=== PATIENT | male | born 1945 | race Caucasian/White ===

== ENCOUNTER → 2022-07-14 13:51 | Outpatient (BNVA) | payer MEDICARE, SELFPAY | PROVIDERS: Visit Provider Internal Medicine | DX: I25.10 Atherosclerotic heart disease of native coronary artery without angina pectoris (principal); I11.0 Hypertensive heart disease with heart failure; I50.9 Heart failure, unspecified; E78.5 Hyperlipidemia, unspecified | CPT/HCPCS: 99204 ==

== ENCOUNTER 2022-07-19 17:40 | Inpatient (IN) | payer MEDICARE, SELFPAY ==
[2022-07-19] VITALS (11 sets, daily range): BP systolic 134–161; BP diastolic 71–112; PULSE 55–70; RESP 15–30; TEMP 36.8; O2SAT 89–100; BMI 24.1
--- NOTE | 2022-07-19 17:56 | ECG_ITS ---
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 Measurements Intervals [place] Rate: 67 P: 40 ID: 139 QRS: 17 QRSD: 107 T: 55 QT: 371 QTc: 392 Interpretive Statements SINUS RHYTHM WITH OCCASIONAL SUPRAVENTRICULAR PREMATURE COMPLEXES MODERATE ST DEPRESSION [0.05+ mV ST DEPRESSION] No previous ECG available for comparison Electronically Signed On 07-20-2022 0:17:30 CDT by King Farmer M.D. [id number] f
--- NOTE | 2022-07-19 18:00 | XRR_ITS ---
PROCEDURE INFORMATION: Exam: XR Chest Exam date and time: 07/19/2022 6:16 PM Age: 76 years old Clinical indication: Angina; Additional info: Cp TECHNIQUE: Imaging protocol: Radiologic exam of the chest. Views: 1 view. COMPARISON: No relevant prior studies available. FINDINGS: Lungs: Emphysematous lung changes. Fine reticular interstitial changes of the pulmonary parenchyma. Negative for pulmonary consolidation. Pleural spaces: Unremarkable. No pleural effusion. No pneumothorax. Heart/Mediastinum: Unremarkable. No cardiomegaly. Bones/joints: Unremarkable. XR/XR chest 1V portable [id number] IMPRESSION: No focal acute pulmonary disease.
--- NOTE | 2022-07-19 18:05 | PC.NURSE ---
Patient placed on defibrillator pads, code cart outside of room. Pt is a/o x 4
--- NOTE | 2022-07-19 18:21 | ED_ITS ---
HPI - Arrhythmia/Palpitations General: Chief Complaint: Arrhythmia/Palpitations Stated Complaint: Chest pains Time Seen by Provider: 07/19/22 18:00 Source: patient Mode of arrival: ambulatory Limitations: no limitations History of Present Illness: 76-year-old male who has an event monitor placed on by cardiology he had some nonsustained runs of V. tach was called by cardiology informed,. States he did have a syncopal episode yesterday had some right-sided chest pain denies any pain currently. He denies any worsening improving factors has had some mild dyspnea at times. Associated symptoms: Reports syncope; Deny nausea or vomiting Review of Systems Const: Denies: fever(s), chills, body aches or change in appetite Eyes: Denies: blurry vision or eye discomfort ENMT: Denies: throat pain or dental pain Card: Reports: syncope Resp: Denies: dyspnea GI: Denies: abdominal pain, nausea, vomiting or diarrhea : Denies: dysuria Musc: Denies: neck pain or back pain Skin/Breast: Denies: rash Neuro: Denies: headache(s) Psych: Denies: depression Navneet/Lymph: Denies: easy bruising All/Imm: Denies: urticaria PFSH ED PFSH: Medical History CHF (congestive heart failure) CKD (chronic kidney disease) Coronary artery disease HTN (hypertension) Hyperlipidemia Malignant neoplasm of prostate Prostate cancer Surgical History History of knee replacement Hx of cholecystectomy Hx of shoulder replacement Social History Smoking and tobacco status: never smoked Physical Exam Const: COMMON NORMALS: patient oriented x3 HENMT: COMMON NORMALS: normocephalic and atraumatic HEAD & SCALP: normocephalic and atraumatic Eye: COMMON NORMALS: Equal, round and reactive pupils present and EOMs intact bilaterally PUPIL: Yes Equal, round and reactive pupils present Neck/C-Spine: COMMON NORMALS: full ROM and supple Chest: COMMONS NORMALS: normal inspection of the chest and normal palpation of entire chest wall Resp: COMMON NORMALS: normal respiratory effort, No retractions, No use of accessory muscles and clear to auscultation bilaterally AUSCULTATION: clear to auscultation bilaterally Cardio: COMMON NORMALS: regular rate, regular rhythm and No murmurs present (Cardio) RATE: regular rate RHYTHM: regular rhythm GI: COMMON NORMALS: Normal to inspection, nondistended, normoactive bowel sounds present, Soft to palpation, non-tender and no masses PALPATION: Yes Soft to palpation Extremity: COMMON NORMALS: normal to inspection and full ROM Neuro: COMMON NORMALS: patient oriented x3, moves all extremities and no focal motor deficits Psych: COMMON NORMALS: mental status grossly normal, Normal thought process present and cooperative THOUGHT PROCESS: Normal thought process present Skin: COMMON NORMALS: no rashes or lesions noted and no wounds GENERAL SKIN EXAM: no rashes or lesions noted Course Vital Signs: Vital signs: Vital Signs Temperature 98.2 F 07/19/22 18:01 Pulse Rate 62 07/19/22 18:39 Respiratory Rate 18 07/19/22 18:39 Blood Pressure 161/95 07/19/22 18:39 Pulse Oximetry 96 07/19/22 18:39 Oxygen Delivery Me thod 07/19/22 18:39 MDM - Arrhythmia/Palpitations Medical Decision Making Patient presents here with nonsustained runs of V. tach at home on Holter monit or with 1 episode of syncope he is well-appearing here blood work is normal spoke to the [employer] consultant will admit at this time nightly have a cardiac cath tomorrow. Lab Data : 07/19/22 18:10 07/19/22 18:10 Radiology Impressions Chest X-Ray 07/19/22 18:00 IMPRESSION: No focal acute pulmonary disease. Laboratory Results WBC 7.7 10^3/uL (4.0-10.0) 07/19/22 18:10 RBC 4.60 10^6/uL (4.1-5.3) 07/19/22 18:10 Hgb 14.3 g/dL (11.7-16.6) 07/19/22 18:10 Hct 41.9 % (42.0-52.0) L 07/19/22 18:10 MCV 91.1 fl (80-94) 07/19/22 18:10 MCH 31.1 pg (28.0-34.0) 07/19/22 18:10 MCHC 34.1 g/dL (30.0-36.0) 07/19/22 18:10 RDW 13.8 % (12.1-15.1) 07/19/22 18:10 Plt Count 171 10^3/cmm (130-400) 07/19/22 18:10 MPV 10.9 fL (7.4-10.4) H 07/19/22 18:10 Neut % (Auto) 64.5 % 07/19/22 18:10 Lymph % (Auto) 21.5 % 07/19/22 18:10 [place] % (Auto) 8.6 % 07/19/22 18:10 Eos % (Auto) 4.4 % 07/19/22 18:10 Baso % (Auto) 0.7 % 07/19/22 18:10 Neut # (Auto) 4.97 10^3/uL (1.8-7.7) 07/19/22 18:10 Lymph # (Auto) 1.7 10^3/uL (0.8-4.8) 07/19/22 18:10 [place] # (Auto) 0.7 10^3/uL (0.2-0.9) 07/19/22 18:10 Eos # (Auto) 0.3 10^3/uL (0.0-0.8) 07/19/22 18:10 Baso # (Auto) 0.1 10^3/uL (0.0-0.1) 07/19/22 18:10 Nucleated RBC % (auto) 0 % 07/19/22 18:10 Nucleated RBCs # 0.0 /100WBC 07/19/22 18:10 Sodium 141 mmol/L (136-145) 07/19/22 18:10 Potassium 3.7 mmol/L (3.5-5.1) 07/19/22 18:10 Chloride 105 mmol/L (98-107) 07/19/22 18:10 Carbon Dioxide 25 mmol/L (22-29) 07/19/22 18:10 Anion Gap 14.7 (5-19) 07/19/22 18:10 BUN 7 mg/dL (8-23) L 07/19/22 18:10 Creatinine 1.1 mg/dL (0.7-1.2) 07/19/22 18:10 GFR Calculation Not Reportable 07/19/22 18:10 Glucose 114 mg/dL (65-115) 07/19/22 18:10 Calculated Osmolality 291 mOsm/kg (285-295) 07/19/22 18:10 Calcium 8.9 mg/dL (8.5-10.5) 07/19/22 18:10 Total Bilirubin 1.1 mg/dL (0.15-1.2) 07/19/22 18:10 AST 17 U/L (0-40) 07/19/22 18:10 ALT 12 U/L (0-41) 07/19/22 18:10 Alkaline Phosphatase 85 U/L (40-130) 07/19/22 18:10 Troponin T Baseline 14 ng/L (0-15) 07/19/22 18:10 Total Protein 6.4 g/dL (6.6-8.7) L 07/19/22 18:10 Albumin 4.0 g/dL (3.5-5.2) 07/19/22 18:10 Globulin 2.4 g/dL (1.3-4.6) 07/19/22 18:10 EKG Data EKG 1: I personally reviewed and interpreted this EKG as follows: EKG interpretation date: 07/19/22 EKG interpretation time: 17:56 Interpretation: nsr hr [address] or t wave abnormalities qrs 107 qtc 386 Other EKG comments: Chest X-Ray 07/19/22 18:00 IMPRESSION: No focal acute pulmonary disease. Critical Care Time Critical Care Time: Critical Care Time: Yes Total Critical Care Time: 35 Attestation: The high probability of a clinically significant, sudden or life threatening deterioration of the patient's cv system(s) required my full and direct attention, intervention and personal management. The critical care time is as shown. This time is in addition to time spent performing any reported procedures but includes the following: [x] Data and vital sign review and interpretation [x] Patient assessment, examination and intervention [x] Documentation [x] Medication orders and management Discharge Plan Discharge Patient Disposition: Admitted As Inpatient Clinical Impression: Ventricular tachycardia, Syncope Condition: Stable Prescriptions: No Action atorvastatin 20 mg tablet 20 mg PO DAILY tramadol 50 mg tablet 50 mg PO BID PRN lisinopril 10 mg tablet 10 mg PO DAILY Coding Level of Care Code ED Seating Upholsterer for Chg Fwd Exam Comprehensive
[2022-07-19 18:28] LABS: Basophils # 0.1 10^3/uL (0.0-0.1); Basophils % 0.7 %; Eosinophils # 0.3 10^3/uL (0.0-0.8); Eosinophils % 4.4 %; Hematocrit 41.9 % (42.0-52.0); Hemoglobin 14.3 g/dL (11.7-16.6); Lymphocytes # 1.7 10^3/uL (0.8-4.8); Lymphocytes % 21.5 %; Mean Corpuscular HGB Conc 34.1 g/dL (30.0-36.0); Mean Corpuscular Hemoglobin 31.1 pg (28.0-34.0); Mean Corpuscular Volume 91.1 fl (80-94); Mean Platelet Volume 10.9 fL (7.4-10.4); Monocytes # 0.7 10^3/uL (0.2-0.9); Monocytes % 8.6 %; Neutrophils # 4.97 10^3/uL (1.8-7.7); Neutrophils % 64.5 %; Nucleated Red Blood Cells % 0 %; Platelet Count 171 10^3/cmm (130-400); Red Cell Distribution Width 13.8 % (12.1-15.1); White Blood Count 7.7 10^3/uL (4.0-10.0)
[2022-07-19 18:56] LABS: Troponin(5th) Baseline 14 ng/L (0-15)
[2022-07-19 18:57] LABS: Alanine Aminotransferase 12 U/L (0-41); Alkaline Phosphatase 85 U/L (40-130); Anion Gap 14.7 (5-19); Aspartate Amino Transferase 17 U/L (0-40); Blood Urea Nitrogen 7 mg/dL (8-23); Calcium 8.9 mg/dL (8.5-10.5); Carbon Dioxide 25 mmol/L (22-29); Chloride 105 mmol/L (98-107); Globulin 2.4 g/dL (1.3-4.6); Glucose 114 mg/dL (65-115); Osmolality Calculated 291 mOsm/kg (285-295); Potassium 3.7 mmol/L (3.5-5.1); Sodium 141 mmol/L (136-145); Total Bilirubin 1.1 mg/dL (0.15-1.2); Total Protein 6.4 g/dL (6.6-8.7)
--- NOTE | 2022-07-19 19:05 | PC.NURSE ---
Report given to INESSA Rogers
[2022-07-19] MEDS: oxyCODONE-APAP 5-325 mg Tablet 1 TAB PO (20:06)
--- NOTE | 2022-07-19 20:27 | USCV_ITS ---
Lazaro Moody Age: 76 Gender: M : 1945 Exam Date: 07/19/2022 22:47 Ordering Phys: Vinicius Marshall MD Technologist: BALDEV Exam Location: [facility] [place] Indication: recurrent syncope x 6 weeks. No history of cardiac intervention per patient. BP: 134 / 84 HR: 56 Rhythm: Sinus Technical Quality: Adequate MEASUREMENTS (Male / Female) Normal Values 2D ECHO LV Diastolic Diameter PLAX 4.0 cm 4.2 - 5.9 / 3.9 - 5.3 cm LV Systolic Diameter PLAX 2.9 cm IVS Diastolic Thickness 1.8 cm 0.6 - 1.0 / 0.6 - 0.9 cm IVS Systolic Thickness 2.0 cm LVPW Diastolic Thickness 1.3 cm 0.6 - 1.0 / 0.6 - 0.9 cm LVPW Systolic Thickness 1.7 cm LVOT Diameter 1.9 cm LV Ejection Fraction 2D Teich 54.2 % LV Ejection Fraction MOD 2C 77.9 % LV Ejection Fraction 2C AL 77.3 % LA Diameter 3.6 cm LA Width 4.0 cm LA Height 4.8 cm RA Width 4.2 cm RA Height 5.1 cm Aorta at Sinotubular Diameter 3.5 cm IVC Diameter 1.7 cm M-MODE Aortic Annulus Diameter 3.5 cm LA Ao Ratio MM 1.1 MV E Point Septal Separation 0.2 cm DOPPLER AV Peak Velocity 114.0 cm/s LVOT Peak Velocity 108.0 cm/s AV Area Cont Eq vti 2.9 cm squared AV Area Cont Eq pk 2.7 cm squared MV Peak Velocity 106.0 cm/s MV Area PHT 3.9 cm squared Mitral E to A Ratio 1.1 MV E' Velocity 55.5 cm/s Mitral E to MV E' Ratio 11.5 Mitral E to LV E' Lateral Ratio 11.7 Mitral E to LV E' Septal Ratio 11.2 TR Peak Velocity 232.3 cm/s TR Peak Gradient 21.6 mmHg TV Peak E Velocity 40.0 cm/s Right Atrial Pressure 5.0 mmHg Pulmonary Artery Systolic Pressu 26.6 mmHg PV Peak Velocity 78.0 cm/s RV Acceleration Time 0.1 s RV Ejection Time 0.4 s RV AcT/ET 0.3 FINDINGS Left Ventricle Left ventricle is normal in size. LV systolic function is normal with EF of 55 to 60%. No regional wall motion abnormalities are seen. Diastolic function is normal. Right Ventricle Normal in size and function Right Atrium Normal in size Left Atrium Normal in size Mitral Valve Structurally normal mitral valve. No significant stenosis or regurgitation seen. Aortic Valve Structurally normal aortic valve. No significant aortic stenosis or regurgitation is seen. Tricuspid Valve Trace tricuspid regurgitation. Insufficient TR jet to calculate RVSP. Pulmonic Valve Not well-visualized. Mild pulmonic regurgitation. Pericardium Normal Aorta Normal in size IVC CONCLUSIONS LV systolic function is normal with EF of 55 to 60%. Diastolic function is normal. Trace tricuspid regurgitation. Mild pulmonic regurgitation. No comparison studies are available. King Farmer MD (Electronically Signed) Final Date: 20 July 2022 11:49 S
--- NOTE | 2022-07-19 20:27 | USCV_ITS ---
Lazaro Moody Age: 76 Gender: M : 1945 Exam Date: 07/19/2022 22:22 Ordering Phys: Vinicius Marshall MD Technologist: BALDEV [place] [facility] [place]: No leg pain. No LE edema. No LE erythema. No history of DVT per patient. HISTORY: No leg pain. No LE edema. No LE erythema. No history of DVT per patient. PROCEDURES: Venous duplex imaging was performed in bilateral lower extremities. The venous duplex Doppler examination of both lower extremities was performed in the standard fashion. The following venous structures were evaluated: common femoral vein, profunda vein, proximal portion of the greater saphenous vein, superficial femoral vein, and the popliteal vein. In addition, the posterior tibial veins were evaluated. Serial compression, augmentation maneuvers, and spectral Doppler flow evaluation were performed, which were normal. Bilaterally, the common femoral, superficial femoral, profunda femoral, popliteal, posterior tibial, and greater saphenous veins were identified and interrogated in the standard fashion. These veins were found to be easily compressible with spontaneous blood flow. No evidence of thrombus noted. CONCLUSIONS No evidence of right lower extremity DVT. No evidence of left lower extremity DVT. Adam Powell MD (Electronically Signed) Final Date: 20 July 2022 13:22 S
--- NOTE | 2022-07-19 20:29 | USCV_ITS ---
Lazaro Moody Age: 76 Gender: M : 1945 Exam Date: 07/19/2022 22:00 Ordering Phys: Vinicius Marshall MD Technologist: BALDEV Exam Location: [facility] [place] Indication: recurrent syncope x 6 weeks. Non-smoker. DM2. Risk Factors: recurrent syncope x 6 weeks. Non-smoker. DM2. Previous Vascular Surgery: None Right Brachial BP: / Left Brachial BP: / Right Left Velocity (cm/s) Spectral Plaque Velocity (cm/s) Spectral Plaque Syst/Diast Broadening Syst/Diast Broadening 91.50/ 12.10 None None Prox CCA 118.00/ 18.70 None None 93.70/ 17.60 None None Mid CCA 70.60 / 17.60 None None 71.70/ 17.60 None None Distal CCA 76.10 / 19.80 None None 57.10/ 20.30 Min [place] Prox ICA 56.70 / 17.10 Min [place] 50.70/ 19.80 Min None Mid ICA 73.00 / 21.80 Min None 62.00/ 23.50 Min None Distal ICA 73.80 / 29.50 Min None 54.50 Min None ECA 72.80 Min None 0.66 ICA/CCA 0.63 Antegrade Vertebral Antegrade 41.10/ 11.20 cm/s 50.50/ 12.40 cm/s Tri Subclavian Tri 101.0 83.10 0 FINDINGS Comparison: none available. No significant elevation of systolic or diastolic velocities. Waveforms are normal. Minimal intimal thickening. CONCLUSIONS Bilateral ICA stenosis less than 50%. Minimal atherosclerosis carotid arteries. Dr. Deann Wilburn DO (Electronically Signed) Final Date: 20 July 2022 07:41 S
--- NOTE | 2022-07-19 20:30 | P.HP_ITS ---
Providers/Chief Complaint Chief Complaint: Chest pains History of Present Illness Lazaro Moody is a 76 year old male with a past medical history of hypertension, hyperlipidemia, CHF, CKD who presents to [facility] for recurrent syncopal episodes, collapse, severe substernal chest pain. Patient for the last few weeks has been having episodes of syncope, and passing out and collapsing, he is also been having severe substernal chest pain. He describes of chest pain pressure-like, associated lightheadedness, dizziness, no nausea, no vomiting, diaphoresis. Denies any calf pain, no calf swelling, no recent surgeries, no hemoptysis, at times he does complain of shortness of breath. He tells me that roughly 30 years ago he did have a coronary angiogram which showed possible 60% disease in one of his arteries but not enough for intervention. 2 years ago he had an angiogram in [facility] which she was told he had normal coronary arteries. He saw cardiology who ordered an event monitor and patient was found to have nonsustained V. tach episodes. This morning patient tells me that he had an episode of syncope and collapse, and had 3 significant episodes of chest pain, his syncope episodes were not witnessed, as his was at work. But he tells me he passed out fell to the floor he has having some neck pain, and has some anterior chest discomfort. Review of Systems Const: Denies: fever(s) or chills Card: Reports: chest pain, lightheadedness and syncope Resp: Reports: dyspnea GI: Denies: abdominal pain : Denies: flank pain or difficulty urinating Musc: Reports: neck pain Neuro: Reports: headache(s); Denies: numbness in extremities, weakness in extremities, lack of coordination, difficulty walking, frequent falls, vertigo, Slurred speech present or seizure- like activity Medications/Allergies Home Medications Medication Instructions Recorded Confirmed Last Taken Type atorvastatin 20 mg tablet 20 mg PO DAILY 07/14/22 07/14/22 Unknown History lisinopril 10 mg tablet 10 mg PO DAILY 07/14/22 07/14/22 Unknown History tramadol 50 mg tablet 50 mg PO BID PRN 07/14/22 07/14/22 Unknown History Allergies Allergy/AdvReac Type Severity Reaction Status Date / Time aspirin Allergy Unknown Unknown Verified 07/14/22 10:45 codeine Allergy Unknown Unknown Verified 07/14/22 10:45 esomeprazole [From Nexium] Allergy Unknown Unknown Verified 07/14/22 10:45 hydrocodone Allergy Unknown Unknown Verified 07/14/22 10:45 hydromorphone Allergy Unknown Unknown Verified 07/14/22 10:45 iodine Allergy Unknown Unknown Verified 07/14/22 10:45 latex Allergy Unknown Unknown Verified 07/14/22 10:45 morphine Allergy Unknown Unknown Verified 07/14/22 10:45 niacin Allergy Unknown Unknown Verified 07/14/22 10:45 zolpidem [From Ambien] Allergy Unknown Unknown Verified 07/14/22 10:45 Allergy Unknown Unknown Uncoded 07/14/22 10:45 PFSH Acute PFSH: Medical History CHF (congestive heart failure) CKD (chronic kidney disease) Coronary artery disease HTN (hypertension) Hyperlipidemia Malignant neoplasm of prostate Prostate cancer Surgical History History of knee replacement Hx of cholecystectomy Hx of shoulder replacement Social History Smoking and tobacco status: never smoked Vitals/I&O/Wt Last Vital Signs Temp 98.2 F 07/19/22 18:01 Pulse 62 07/19/22 18:39 Resp 18 07/19/22 18:39 BP 161/95 07/19/22 18:39 Pulse Ox 96 07/19/22 18:39 O2 Del Method 07/19/22 18:39 Weight last 48 hrs Weight 87.543 kg Physical Exam Const: COMMON NORMALS: no acute distress and patient oriented x3 HENMT: COMMON NORMALS: normocephalic HEAD & SCALP: normocephalic Eye: COMMON NORMALS: Equal, round and reactive pupils present and EOMs intact bilaterally Neck/C-Spine: COMMON NORMALS: no JVD Resp: COMMON NORMALS: normal respiratory effort, No retractions, No use of accessory muscles and clear to auscultation bilaterally AUSCULTATION: clear to auscultation bilaterally Cardio: COMMON NORMALS: no JVD, regular rate, regular rhythm, S1 normal heart sound present and S2 normal heart sound present RATE: regular rate RHYTHM: regular rhythm HEART SOUNDS: S1 normal heart sound present and S2 normal heart sound present GI: COMMON NORMALS: Normal to inspection, nondistended, normoactive bowel sounds present, Soft to palpation, non-tender, No hepatosplenomegaly present, no masses and no bruits PALPATION: Yes Soft to palpation and Yes No hepat osplenomegaly present Extremity: COMMON NORMALS: capillary refill normal, no clubbing, cyanosis or edema, no calf tenderness and no pedal edema Neuro: COMMON NORMALS: patient oriented x3, CN's II-XII intact bilaterally, moves all extremities and no focal motor deficits Psych: COMMON NORMALS: mental status grossly normal Data : 07/19/22 18:10 07/19/22 18:10 A&P Assessment and plan (1) NSVT (nonsustained ventricular tachycardia): Status: Acute (2) Syncope and collapse: Status: Acute (3) Unstable angina: Status: Acute Plan Syncope and collapse -With unstable angina -With syncope and collapse -Baseline troponin 14, EKG shows ST depressions in inferior lateral leads -Currently having mild chest discomfort -Etiology, concerning for cardiac etiology, given troponin is not elevated, concerning for multivessel CAD -The other possibilities could be a pulmonary embolism, -Event monitor showing nonsustained V. tach, longest lasting 20 seconds Plan -Due to patient's episodes of syncope, unstable angina, recurrent nonsustained V. tach episodes, he needs ICU monitoring -Check magnesium level, TSH, serial EKGs, serial troponins, telemetry monitoring -Stat echo -Venous ultrasound, and D-dimer -Therapeutic Lovenox, statin, Coreg -Cardiology consulted, plans on cardiac cath in the morning -Monitor for nonsustained V. tach, pads in place -Fall, neck pain, CT of the neck, carotid artery ultrasound -Full code -Lovenox for DVT prophylaxis Attestations Medical Necessity Statement*: Patient requires hospitalization, inpatient, greater than 2 midnights, for syncope and collapse, nonsustained V. tach, unstable angina Coding Level of Care Code Acute Data Processing Auditor for [facility] Diagnoses NSVT (nonsustained ventricular tachycardia) I47.2 Syncope and collapse R55 Unstable angina I20.0
--- NOTE | 2022-07-19 20:32 | ECG_ITS ---
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 Measurements Intervals [place] Rate: 64 P: 35 TN: 146 QRS: 4 QRSD: 104 T: 35 QT: 414 QTc: 427 Interpretive Statements SINUS RHYTHM WITH OCCASIONAL SUPRAVENTRICULAR PREMATURE COMPLEXES Compared to ECG 07/19/2022 18:50:36 Myocardial infarct finding no longer present Electronically Signed On 07-20-2022 0:18:28 CDT by King Farmer M.D. [id number]
--- NOTE | 2022-07-19 20:33 | CTR_ITS ---
PROCEDURE INFORMATION: Exam: CT Cervical Spine Without Contrast Exam date and time: 07/19/2022 8:48 PM Age: 76 years old Clinical indication: Patient HX: Patient has been having recurrent falls due to arrhythmia. C/O neck pain. ; Additional info: Fall, pain TECHNIQUE: Imaging protocol: Computed tomography of the cervical spine without contrast. Radiation optimization: All CT scans at this facility use at least one of these dose optimization techniques: automated exposure control; mA and/or kV adjustment per patient size (includes targeted exams where dose is matched to clinical indication); or iterative reconstruction. COMPARISON: CR (CHEST, ) 07/19/2022 6:16 PM RADIATION DOSE METRICS: Total DLP (mGy-cm): 168.47 FINDINGS: Bones/joints: No acute fracture. Unremarkable alignment. Mild degenerative anterolisthesis C7-T1. Discs/Spinal canal/Neural foramina: The cervical spine demonstrates moderate degenerative changes at multiple levels. Severe disc height loss of C5-C6. Lungs: Lung apices are normal. Soft tissues: Unremarkable. CT/CT cervical spin wo con* [id number] IMPRESSION: Negative for acute cervical spine abnormality.
[2022-07-19 20:42] LABS: Troponin 5 2HR 13.97 ng/L (0-15)
[2022-07-19 20:51] LABS: Troponin 5 2HR Delta -0.03 ABS# (0-10)
[2022-07-19 21:01] LABS: D Dimer 0.38 ug/mIFEU (0-0.59)
[2022-07-19 21:09] LABS: INR 1.09 (0.8-1.2)
[2022-07-19 21:11] LABS: NT Pro B Type Natriuretic Pept 246 pg/mL (0-450); Procalcitonin 0.04 ng/mL (0-0.5)
[2022-07-19 21:21] LABS: Phosphorus 2.5 mg/dL (2.5-4.5)
[2022-07-20] VITALS (58 sets, daily range): BP systolic 106–165; BP diastolic 54–98; PULSE 44–127; RESP 12–31; TEMP 36–36.7; O2SAT 85–100; BMI 26.4
--- NOTE | 2022-07-20 | ECG_ITS ---
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 Measurements Intervals [place] Rate: 57 P: 61 AR: 144 QRS: 19 QRSD: 103 T: 51 QT: 444 QTc: 434 Interpretive Statements SINUS BRADYCARDIA WITH FREQUENT SUPRAVENTRICULAR PREMATURE COMPLEXES Compared to ECG 07/19/2022 20:32:49 Sinus rhythm no longer present Electronically Signed On 07-20-2022 0:17:57 CDT by King Farmer M.D. [id number]
[2022-07-20] MEDS: pantoprazole 40 mg SDV IVP (02:01)
[2022-07-20] MEDS: sodium chloride 0.9% 1,000 ML 50 ML IV ×2 (02:02→20:49)
[2022-07-20] MEDS: enoxaparin 100 mg/mL Syringe 90 MG SUBCUT (02:04)
[2022-07-20 02:58] LABS: Troponin 5 6HR 21.07 ng/L (0-15)
[2022-07-20 03:09] LABS: Basophils # 0.1 10^3/uL (0.0-0.1); Basophils % 0.9 %; Eosinophils # 0.4 10^3/uL (0.0-0.8); Hematocrit 36.2 % (42.0-52.0); Hemoglobin 12.5 g/dL (11.7-16.6); Lymphocytes # 1.7 10^3/uL (0.8-4.8); Lymphocytes % 30.2 %; Mean Corpuscular HGB Conc 34.5 g/dL (30.0-36.0); Mean Corpuscular Hemoglobin 31.3 pg (28.0-34.0); Mean Corpuscular Volume 90.5 fl (80-94); Mean Platelet Volume 11.3 fL (7.4-10.4); Monocytes # 0.6 10^3/uL (0.2-0.9); Monocytes % 10.5 %; Neutrophils # 2.92 10^3/uL (1.8-7.7); Neutrophils % 51.1 %; Nucleated Red Blood Cells % 0 %; Platelet Count 150 10^3/cmm (130-400); Red Cell Distribution Width 13.5 % (12.1-15.1); White Blood Count 5.7 10^3/uL (4.0-10.0)
[2022-07-20 03:17] LABS: INR 1.13 (0.8-1.2)
[2022-07-20 03:23] LABS: Alanine Aminotransferase 10 U/L (0-41); Albumin Level 3.4 g/dL (3.5-5.2); Alkaline Phosphatase 71 U/L (40-130); Anion Gap 10.5 (5-19); Aspartate Amino Transferase 14 U/L (0-40); Blood Urea Nitrogen 8 mg/dL (8-23); Calcium 8.1 mg/dL (8.5-10.5); Carbon Dioxide 29 mmol/L (22-29); Chloride 104 mmol/L (98-107); Globulin 1.9 g/dL (1.3-4.6); Glucose 83 mg/dL (65-115); Magnesium 1.9 mg/dL (1.7-2.3); Osmolality Calculated 287 mOsm/kg (285-295); Phosphorus 2.9 mg/dL (2.5-4.5); Potassium 3.5 mmol/L (3.5-5.1); Sodium 140 mmol/L (136-145); Total Protein 5.3 g/dL (6.6-8.7)
[2022-07-20 03:35] LABS: Troponin 5 6HR Delta 7.07 ng/L (0-12)
--- NOTE | 2022-07-20 06:15 | PC.NURSE ---
spoke to linda abdullahi she will bring advance directive today (07/20/2022)
[2022-07-20 06:22] LABS: Add Urine Microscopic? NO; Charge for UA Resulting for Rev
[2022-07-20 07:05] LABS: Bilirubin Urine Neg (Negative); Blood Urine Neg (Negative); Glucose Urine UA Norm (Normal); Ketones Urine Negative (Negative); Leukocyte Esterase Urine Negative (Negative); Nitrate Urine Negative (Negative); Protein Urine Neg (Negative); Urine Appearance Clear (CLEAR); Urine Color Yellow (Yellow); Urobilinogen Urine Norm (Negative); pH Urine 6 (5-7)
--- NOTE | 2022-07-20 08:04 | XACV_ITS ---
Exam Room: [facility] Ht: 185 cm Wt: 91 kg BSA: 2.17 m2 Gender: Male : 1945 Any Known Allergies: Other Exam Priority: Routine Procedure(s): Procedure Description: Diagnostic procedure Procedure Description: Left Heart Catheterization Procedure Description: Coronary Angiography Diagnostic Cath Status: Urgent Diagnostic Findings * No significant disease noted in the Left Main, Left Anterior Descending, Right, or Circumflex coronary arteries. * INDICATION: Ventricular tachycardia/ Syncope. * Coronary angiography shows right dominance. Conclusions 1. No significant disease noted in the Left Main, Left Anterior Descending, Right, or Circumflex coronary arteries. Recommendations * Aggressive risk factor modification. * We will start amiodarone gtt. * Patient will need transfer to tertiary center for EP evaluation for EP study and ablation. He also may need ICD placement for secondary prevention. Diagnostic RX Recommendation: medical therapy and/or counseling Pressures Phase:Rest AO : 124 / 83 ( 104 ) @ 9:32:00 AM 126 / 78 ( 106 ) @ 9:34:00 AM 144 / 53 ( 104 ) @ 9:37:00 AM LV : 153 / -11 / 10 @ 9:37:00 AM Clinical Evaluation EBL: 5mL-10mL Procedural Details Procedure Consent Obtained. Pre-Procedure Time Out. Identified patient by full name and date of as verbalized by the patient/guarantor. Does the consent match the physician's order: Yes. Accurate & Complete Informed Consent: Yes. Inpatient/Outpatient History & Physical on Chart: Yes. If H&P is completed, is and addenduem needed: No; If yes, is the addendum complete: N/A. Visualize and Verify Site with Patient/Guarantor: N/A. Relevant Radiology Images available: Yes. Pre-op teaching completed and patient verbalized understanding. The risks, benefits, and alternatives of sedation and/or procedure were discussed by physician. The patient agrees to continue. Procedure started. 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 Chest Pain Symptom Assessment: Asymptomatic. Correct patient, site and procedure confirmed by cath team. PERRLA. Strong, equal hand battery starter bilaterally. Lungs clear x 5 lobes. IV Site on Arrival: 18 gauge in the left anticubital. IV Fluids: 0.9% NaCl at KVO. 200 mL infused prior to senior laboratory technician. Oxygen started at 2liters/min via nasal canula. Pre Procedural Pulses: right radial was 2+. right groin was prepped with chloroprep then draped in the usual sterile fashion. right radial was prepped with chloroprep then draped in the usual sterile fashion. Baseline sample Acquired. HR: 61 BPM. Physician arrived. Physician scrubbed in. Immediate Pre-Procedure Time Out. Correct Patient: Yes; Correct Procedure: Yes; Correct Site: Yes; Correct Patient Position: Yes; Correct Supplies: Yes; Dried Flammable Prep: Yes; Blood Products Available: N/A;. Lidocaine 1% infiltrated to the right radial. Arterial access obtained. A 5 british Brandt catheter in over wire. Multiple views taken of left coronary artery. Catheter redirected to the RCA. Multiple views taken of right coronary artery. EDP Sample taken: LV Off; HR: 0 BPM; SpO2: 96%. EDP Sample taken: LV 153/-12,10; HR: 65 BPM; SpO2: 96%. Pullback taken: LV Off; AO Off; Mean: , Peak to Peak: , SEP: ; HR: 67 BPM; SpO2: 96%. Catheter removed over the standard wire. TR band placed. Hemostasis obtained. Post Procedure: Pulses reassessed and unchanged. PERRLA. Strong, equal hand battery starter bilaterally. No VTE prophylaxis required. Post-op diagnosis: Non Obstructive CAD. Complications: None. Medication's Wasted: Lidocaine 1% = 2 mL. Medication's Wasted: Nitro = 49.8 mg. Medication's Wasted: Heparin = 1000 units. Estimated blood loss: 5mL-10mL. Responsiveness - Normal response to verbal stimuli; alert and oriented, PERRLA. Vital chart was stopped. Airway - Unaffected, no intervention required; spontaneous ventilation. Circulation: W/N/L, pulses unchanged. Nausea/Vomiting: No. Procedure completed. Patient transferred by wheelchair to ICU. Access Site Site: Right Radial artery Sheath Size: 6 Fr Hemostasis Success: Unsuccessful Procedure Medications Start: 8:22 AM Stop: 8:22 AM Medication: Versed Amount: 1 mg Route: I.V. Start: 8:23 AM Stop: 8:23 AM Medication: Fentanyl Amount: 50 mcg Route: I.V. Start: 8:23 AM Stop: 8:23 AM Medication: Solu-Medrol (methylprednisolone) Amount: 125 mg Route: I.V. Start: 8:26 AM Stop: 8:26 AM Medication: Nitrogylcerin Amount: 200 mcg Route: I.A. Start: 8:30 AM Stop: 8:30 AM Medication: Heparin Amount: 5000 units Route: I.V. Start: 8:22 AM Stop: 8:22 AM Medication: Benadryl Amount: 50 mg Route: I.V. I, the attending physician, have reviewed and verified all procedure medications. Yes, all medications given per verbal order History/Risk Factors Hypertension: Yes Dyslipidemia: Yes Peripheral Arterial Disease (PAD): No Myocardial Infarction (WA): No Obesity: No Renal Disease: No Prior Interventions PCI: No CABG: No Valve Surgery: No Report Signatures Finalized by King Farmer MD on 07/28/2022 12:27 PM
--- NOTE | 2022-07-20 08:07 | P.CONIM_ITS ---
Providers/Reason For Consult Consulting Physician/Specialty*: King Farmer MD/ Cardiology Reason for Consult*: Ventricular tachycardia/Syncope Requesting Physician: Dr Morrison Attending Physician: Vinicius Marshall MD History of Present Illness History of Present Illness Lazaro Moody is a 76 year old male with past medical history of hypertension, hyperlipidemia who was recently seen in the office for syncopal episode. He was put on event monitor that showed sustained VT episodes. Patient was asked to come to the hospital on however he came yesterday because of transportation issues. Patient tells me he has had 2-3 syncopal episodes since last week. He was also complaining of chest discomfort on and off. His troponins have not increased significantly. EKG shows normal sinus rhythm with PACs. Event monitor also showed episodes of SVT. Review of Systems Narrative: CONSTITUTIONAL: No fever chills weight loss or gain or night sweats. [] HEENT: Normocephalic, atraumatic.[] RESPIRATORY: No cough, sputum, hemoptysis or wheezing.[] CARDIOVASCULAR: No shortness of breath, chest pain, PND, orthopnea, lower extremity edema, presyncope or syncope. [] GI: no nausea vomiting diarrhea. [] WEBSPHERE ARCHITECT: No numbness, tingling, weakness or loss of function in any part of the b benito. [] MUSCULOSKELETAL: No knee or joint pain or rashes. [] Medications/Allergies Home Medications Medication Instructions Recorded Confirmed Last Taken Type atorvastatin 20 mg tablet 20 mg PO DAILY 07/14/22 07/14/22 Unknown History lisinopril 10 mg tablet 10 mg PO DAILY 07/14/22 07/14/22 Unknown History tramadol 50 mg tablet 50 mg PO BID PRN 07/14/22 07/14/22 Unknown History Allergies Allergy/AdvReac Type Severity Reaction Status Date / Time aspirin Allergy Unknown Unknown Verified 07/14/22 10:45 codeine Allergy Unknown Unknown Verified 07/14/22 10:45 esomeprazole [From Nexium] Allergy Unknown Unknown Verified 07/14/22 10:45 hydrocodone Allergy Unknown Unknown Verified 07/14/22 10:45 hydromorphone Allergy Unknown Unknown Verified 07/14/22 10:45 iodine Allergy Unknown Unknown Verified 07/14/22 10:45 latex Allergy Unknown Unknown Verified 07/14/22 10:45 morphine Allergy Unknown Unknown Verified 07/14/22 10:45 niacin Allergy Unknown Unknown Verified 07/14/22 10:45 zolpidem [From Ambien] Allergy Unknown Unknown Verified 07/14/22 10:45 [id number] Allergy Unknown Unknown Uncoded 07/14/22 10:45 Current Medications Generic Name Dose Route Start Last Admin Trade Name Freq PRN Reason Stop Dose Admin Sodium Chloride 1,000 mls @ 50 mls/hr 07/20/22 01:04 07/20/22 02:02 Sodium Chloride 0.9% IV 50 mls/hr .Q20H ANDREW Administration Pantoprazole Sodium 40 mg 07/20/22 01:04 07/20/22 02:01 Pantoprazole 40 Mg Sdv IVP 40 mg Q24H ANDREW Administration PFSH Acute PFSH: Medical History CHF (congestive heart failure) CKD (chronic kidney disease) Coronary artery disease HTN (hypertension) Hyperlipidemia Malignant neoplasm of prostate Prostate cancer Surgical History History of knee replacement Hx of cholecystectomy Hx of shoulder replacement Social History Smoking and tobacco status: never smoked Vitals/I&O/Wt Last Vital Signs Temp 96.8 F L 07/20/22 01:00 Pulse 52 L 07/20/22 05:12 Resp 17 07/20/22 04:15 BP 134/70 07/20/22 04:15 Pulse Ox 99 07/20/22 04:15 O2 Del Method 07/20/22 02:15 O2 Flow Rate 2 07/20/22 01:00 07/19/22 07/20/22 07/20/22 22:59 06:59 14:59 Output Total 370 / 370 Balance -370 / -370 Weight last 48 hrs Weight 200 lb 6.4 oz Weight 193 lb Physical Exam Narrative: GENERAL: Patient is alert, awake and oriented x3. [] NECK: No jugular vein distension. [] HEENT: No cyanosis. No icterus. No pallor. [] HEART: Regular S1 and S2. No murmur, rub or gallop. [] LUNGS: Clear to auscultate bilaterally. [] ABDOMEN: Soft, nontender and nondistended. Positive bowel sounds. No guarding, rebound or tenderness. [] CENTRAL NERVOUS SYSTEM: Grossly nonfocal. [] EXTREMITIES: Lower extremities with no edema bilaterally. Pulses palpable in the lower extremities, both dorsalis pedis and posterior tibial. [] Data : 07/20/22 02:00 07/20/22 02:00 A&P Assessment and plan (1) Syncope and collapse: Status: Acute (2) Unstable angina: Status: Acute (3) Ventricular tachycardia: Status: Acute Plan Patient was recently seen in the office and was put on event monitor given his syncopal episodes. It showed ventricular tachycardia up to 42 seconds in duration. He was asked to come to the hospital. He had syncopal episodes during the last week. Also complains of chest pain episodes associated with it. We will proceed with coronary angiogram with possible percutaneous coronary intervention to rule out CAD as a trigger for his VTs. Will need to initiate antiarrhythmic medications. If no CAD is found, will d iscuss with EP for possible EP study. He will likely need ICD as well. Order echocardiogram. Thank you for involving us with care of this patient. We will continue to follow. Please call with questions. Consult Attestations Medical Necessity Statement: Care expected to cross 2 midnights. Coding Level of Care Code Acute Glass Cut Off Supervisor for Christine Montgomery Diagnoses Syncope and collapse R55 Unstable angina I20.0 Ventricular tachycardia I47.2
--- NOTE | 2022-07-20 08:19 | W.PM.OPSUD ---
Surgery/Procedure H&P Update DATE OF PROCEDURE: July 20, 2022 DATE H&P PERFORMED: 07/20/22 H&P UPDATE INFORMATION: I have reviewed H&P completed within last 30 days, I have examined patient prior to procedure and No changes to prior documentation PREOP DIAGNOSIS: Ventricular tachycardia/ Syncope PRIMARY INDICATION FOR PROCEDURE: Ventricular tachycardia/ Syncope PATIENT REASSESSED PRIOR TO SEDATION, WITH NO CHANGE NOTED: Yes PHYSICAL EXAM: alert, oriented x 3, clear to auscultation bilaterally and regular rate & rhythm AIRWAY EVAL/ANESTHESIA PLAN: ASA III, Local Anesthesia, Risks, benefits & alternatives of sedation and/or procedure discussed and Patient agrees to continue as planned ADDITIONAL INFORMATION: Moderate sedation
--- NOTE | 2022-07-20 10:35 | PM.PN ---
Subjective Subjective: Overnight labs and H&P reviewed. Patient is status post cardiac cath this morning. Coronaries were clean. No intervention. He is brought back into ICU room 6 and is currently resting comfortably. No complaints of chest pain dyspnea or palpitations at this time. Noted sinus bradycardia on telemetry. Medications: Reviewed: Yes Vitals/I&O/Wt Last Vital Signs Temp 97.7 F 07/20/22 07:30 Pulse 69 07/20/22 08:00 Resp 23 H 07/20/22 08:00 BP 128/66 07/20/22 08:00 Pulse Ox 99 07/20/22 08:00 O2 Del Method 07/20/22 08:00 O2 Flow Rate 2 07/20/22 08:00 07/19/22 07/20/22 07/20/22 22:59 06:59 14:59 Intake Total 0 / 0 Output Total 370 / 370 Balance -370 / -370 0 / 0 Weight last 48 hrs Weight 90.9 kg Weight 87.543 kg Physical Exam Narrative: General: No acute distress, AO x3, resting comfortably at the time of exam HEENT: PERRLA, pupils bilaterally equal and reactive, pallors not present Chest: Normal vesicular breath sounds, no added sounds, equal good air entry bilaterally CVS: S1-S2 regular, no murmurs, no tachycardia, no gallops, no rubs Abdomen: Soft, nontender, no organomegaly, bowel sounds present Neuro: No focal deficits, no facial deformity, AO x3, power 5/5 in all limbs Data : 07/20/22 02:00 07/20/22 02:00 A&P Assessment and plan (1) NSVT (nonsustained ventricular tachycardia): Status: Acute (2) Syncope and collapse: Status: Acute (3) Unstable angina: Status: Acute Plan Syncope and collapse -Event monitor showing nonsustained V. tach, longest lasting 20 seconds Likely etiology to be episodes of sustained V. tach. Patient is status post cardiac cath this morning. Coronaries were clean, no intervention. Discussed case with readers' advisory service librarian Dr. Auguste, patient will need electrophysiology studies given nonischemic etiology. Attempting transfer to a center where EP is available. Negative carotid Doppler Attestations Medical Necessity Statement*: Needs continued admission for episodes of sustained V. tach, possible transfer for EP studies and ablation. Coding Level of Care Code Acute Formation Fracturing Operator for Christine Fwd Diagnoses NSVT (nonsustained ventricular tachycardia) I47.2 Syncope and collapse R55 Unstable angina I20.0
--- NOTE | 2022-07-20 10:43 | PC.PHAR ---
unable to verify meds with pt medications entered are meds the pharmacy has filled recently
--- NOTE | 2022-07-20 12:52 | PC.CHAP ---
Pastoral Care Encounter/Spiritual Assessment Type of Contact [] Declined crawler crane operator visit [] Patient/Family/Request visit [] Outpatient visit [] Follow-up visit [] Physician referral [] Code/Alert [x] Routine visit [] Staff referral [] Actively dying [] Patient sleeping [x] Family support [] [] Out of room [] Palliative care [] [] Receiving care in room [] Pre-surgical visit [] Trauma [] Long length of stay [x] ICU visit [x] Other: being transferred to [place] Relational/Emotional Strength [] Patient feels connected with others/family/visitors/staff [] Distress [] Loneliness/isolation [] Abandonment Spirituality of Patient [] Person of Adia [] Attends Taoist of their Adia [] Believes in Prayer [] Reads Bible or Jewish materials [] There are Spiritual issues to be addressed Glass Calibrator Interventions [x] Prayer [x] Active listening [x] Non-anxious presence [x] Spiritual/emotional support [] Crisis/trauma care [] Spiritual counseling [] Bereavement support [] Provided bereavement packet [] Provided Bible/devotional materials [] Provided toy/stuffed animal, coloring book to patient or family member [] Provided Communion [] Anointing/[place] [] Salvation [x] Completed spiritual assessment [] Other: Impact on Illness or Injury [] Angry [] Fearful [] Anxious [] Often cries [] Exhaustion [] Unable to work [] Unable to attend yarsanism [] Unable to walk/stand [] Unable to read [] Unable to drive [] Unable to eat/drink [] Unable to sleep [] Unable to be with family [] Patient intubated [] Other: Summary Time spent with patient
--- NOTE | 2022-07-20 12:52 | PM.MISC ---
Miscellaneous Note Purpose of Documentation: Brief procedure Note Note: Left heart cath: No significant coronary artery disease seen Will need transfer for EP evaluation/ EP study/ ICD placement for secondary prevention
--- NOTE | 2022-07-20 16:34 | PC.NURSE ---
VTACH 22 second Wide complex monomorphic Vtach on monitor. Patient did come out of it on his own. Patient did complain of headache and feeling of being anxious approximately 10-15 minutes prior to episode. Dr. Hernandez called and notified. She presented to ICU for orders. Patient was in room with sorting through his wallet during episode, never lost consciousness. Defib pads placed on patient.
--- NOTE | 2022-07-20 21:43 | PC.NURSE ---
@2114 pt went into V tach, pt states he was having mild chest pain. V tach ended at 2115, chest pain ended when v tach subsided. @2117 MD cortes was notified and requested we inform cardiology. MD Colby called and informed of event. ordered stat labs and to increase amiodarone from 0.5mg to 1mg
[2022-07-20 22:35] LABS: Anion Gap 16.7 (5-19); Blood Urea Nitrogen 13 mg/dL (8-23); Calcium 8.1 mg/dL (8.5-10.5); Carbon Dioxide 22 mmol/L (22-29); Chloride 103 mmol/L (98-107); Glucose 231 mg/dL (65-115); Magnesium 1.6 mg/dL (1.7-2.3); Osmolality Calculated 293 mOsm/kg (285-295); Phosphorus 2.1 mg/dL (2.5-4.5); Potassium 3.7 mmol/L (3.5-5.1); Sodium 138 mmol/L (136-145)
[2022-07-20] MEDS: magnesium sulfate premix 2 GM/50 ML PIGGYBACK IV (23:46)
[2022-07-20] MEDS: lidocaine 1% 5 ML in potassium chloride premix 100 ML 25 ML IV (23:47)
[2022-07-21] VITALS (37 sets, daily range): BP systolic 101–158; BP diastolic 58–97; PULSE 56–73; RESP 14–31; TEMP 36.5–36.8; O2SAT 80–98
[2022-07-21] MEDS: pantoprazole 40 mg SDV IVP (00:51)
--- NOTE | 2022-07-21 03:06 | PC.NURSE ---
This RN contacted [facility] inquiring about bed status on 07/21/2022 @ 9992. RN informed there are still no beds available for pt at this time.
--- NOTE | 2022-07-21 08:49 | P.PN_ITS ---
Subjective Subjective: Patient is doing well. He had 2 episodes of ventricular tachycardia yesterday. He was put on amiodarone drip. Last episode was at around 9 PM and lasted for about 1 minute. He had presyncopal symptoms with it. Vitals/I&O/Wt Last Vital Signs Temp 98.1 F 07/20/22 20:00 Pulse 62 07/21/22 06:00 Resp 17 07/21/22 04:00 BP 120/63 07/21/22 04:00 Pulse Ox 96 07/21/22 04:00 O2 Del Method 07/20/22 20:00 O2 Flow Rate 2 07/20/22 08:00 07/20/22 07/21/22 07/21/22 22:59 06:59 14:59 Intake Total 1606.716 / 1606.716 155 / 1761.716 Output Total 370 / 370 Balance 1606.716 / 1606.716 -215 / 1391.716 Weight last 48 hrs Weight 200 lb 6.4 oz Weight 193 lb Physical Exam Narrative: GENERAL: Patient is alert, awake and oriented x3. [] NECK: No jugular vein distension. [] HEENT: No cyanosis. No icterus. No pallor. [] HEART: Regular S1 and S2. No murmur, rub or gallop. [] LUNGS: Clear to auscultate bilaterally. [] ABDOMEN: Soft, nontender and nondistended. Positive bowel sounds. No guarding, rebound or tenderness. [] CENTRAL NERVOUS SYSTEM: Grossly nonfocal. [] EXTREMITIES: Lower extremities with no edema bilaterally. Pulses palpable in the lower extremities, both dorsalis pedis and posterior tibial. [] Data : 07/20/22 02:00 07/20/22 21:57 A&P Assessment and plan (1) Syncope and collapse: Status: Acute (2) Unstable angina: Status: Acute (3) Ventricular tachycardia: Status: Acute Plan Patient has been having syncopal episodes and was found to have ventricular tachycardia on Holter monitor. Underwent coronary angiogram yesterday that showed no significant coronary artery disease. Echocardiogram shows normal LV systolic function. Patient has been started on amiodarone. Continue for now. Had 2 episodes of VT yesterday. EF is normal. Patient is in process of transferring's to [facility] for EP study with possible ablation. He may need ICD placement for secondary prevention. Thank you for involving us with care of this patient. We will continue to follow. Please call with questions. Attestations Medical Necessity Statement*: Care expected to cross 2 midnights. Coding Level of Care Code Acute Sanitation Truck Driver for Christine Montgomery Diagnoses Syncope and collapse R55 Unstable angina I20.0 Ventricular tachycardia I47.2
[2022-07-21] MEDS: carvedilol 3.125 mg Tablet PO ×2 (10:29→17:56)
[2022-07-21] MEDS: atorvastatin 40 mg Tablet PO (10:29)
--- NOTE | 2022-07-21 11:38 | PC.NURSE ---
1100 Continuing Amniodarone gtt per dr Peterson orders through transfer to [facility] which is in process and waiting for bed assignment.
[2022-07-21 16:45] LABS: SARS Covid-2 Antigen Negative (Negative)
[2022-07-21] MEDS: sodium chloride 0.9% 1,000 ML 50 ML IV (16:53)
--- NOTE | 2022-07-21 21:10 | PC.NURSE ---
Tramadol Patient complaining of a headache at a 7 on a 1-10 numerical scale. 5 mg PO Oxycodone IR PRN Q6HR for pain ordered. Due to patient's allergy list, inquiry made to patient about reactions to oxycodone in the past. Patient states he developed a rash following the use of oxycodone and that he normally takes 50 mg Tramadol PRN for pain at home. Dr. Marshall contacted and order received to restart home medication. Tramadol administered per JAN.
[2022-07-21] MEDS: TRAMadol 50 mg Tablet PO (21:23)
--- NOTE | 2022-07-21 22:11 | PM.TDS ---
Transfer Summary Providers Date of Admission: 07/20/22 01:04 Date of Discharge/Transfer: 07/21/22 Attending Provider at Admission: Vinicius Marshall MD Attending Provider at Transfer: Skylar Hernandez MD Transfer Plans: Anticipated date of transfer: 07/21/22. Diagnoses at Discharge Discharge Diagnosis (1) Syncope and collapse: Status: Acute (2) Unstable angina: Status: Acute (3) Ventricular tachycardia: Status: Acute Reason for Visit Reason for Visit Chest pains Brief History: 76 M who presented to the hospital with recurrent syncope and collapse with holter monitor tracings as outpatient showing episodes of sustained V tach. Coronary angiogram without obstrcutive CAD. He is currently on amiodarone infusion but continues to have episodes of sustained V tach. He describes chest pain during these episodes. No LOC in the hospital. he is being transferred to [facility] in [place] for electrophysiology studies and possible ablation and defibrillator placement Physical Exam Narrative: General: No acute distress, AO x3 HEENT: PERRLA, pupils bilaterally equal and reactive, pallors not present Chest: Normal vesicular breath sounds, no added sounds, equal good air entry bilaterally CVS: S1-S2 regular, no murmurs, no tachycardia, no gallops, no rubs Abdomen: Soft, nontender, no organomegaly, bowel sounds present Neuro: No focal deficits, no facial deformity, AO x3, power 5/5 in all limbs TS Data Studies Completed and Pending Pending at discharge Category Date Time 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 Routine Exams 07/20/22 08:04 Taken ABG ONLY [Arterial Blood Gas W/O Coox] Stat Lab 07/19/22 20:38 Ordered CDIFF [Clostridioides Difficile PCR] Routine Lab 07/21/22 11:05 Received Labs from last 24 hours 07/21/22 07/20/22 15:55 21:57 Sodium 138 Potassium 3.7 Chloride 103 Carbon Dioxide 22 Anion Gap 16.7 BUN 13 Creatinine 1.2 GFR Calculation Not Reportable Glucose 231 H Calculated Osmolality 293 Calcium 8.1 L Phosphorus 2.1 L Magnesium 1.6 L SARS-CoV-2 Ag (Rapid) Negative Completed Studies During Hospitalization Category Date Time Status CT cervical spin wo con* [id number] Stat Cat Scan 07/19/22 20:33 Completed XR chest 1V portable [id number] Stat Exams 07/19/22 18:00 Completed CV carotid duplex BI* [id number] Stat Ultrasound 07/19/22 20:29 [place] [id number] Stat Ultrasound 07/19/22 20:27 Completed CV. echo complete* [id number] Stat Ultrasound 07/19/22 20:27 Completed Laboratory Last Values WBC 5.7 10^3/uL (4.0-10.0) 07/20/22 02:00 RBC 4.00 10^6/uL (4.1-5.3) L 07/20/22 02:00 Hgb 12.5 g/dL (11.7-16.6) 07/20/22 02:00 Hct 36.2 % (42.0-52.0) L 07/20/22 02:00 MCV 90.5 fl (80-94) 07/20/22 02:00 MCH 31.3 pg (28.0-34.0) 07/20/22 02:00 MCHC 34.5 g/dL (30.0-36.0) 07/20/22 02:00 RDW 13.5 % (12.1-15.1) 07/20/22 02:00 Plt Count 150 10^3/cmm (130-400) 07/20/22 02:00 MPV 11.3 fL (7.4-10.4) H 07/20/22 02:00 Neut % (Auto) 51.1 % 07/20/22 02:00 Lymph % (Auto) 30.2 % 07/20/22 02:00 Hubbard % (Auto) 10.5 % 07/20/22 02:00 Eos % (Auto) 7.0 % 07/20/22 02:00 Baso % (Auto) 0.9 % 07/20/22 02:00 Neut # (Auto) 2.92 10^3/uL (1.8-7.7) 07/20/22 02:00 Lymph # (Auto) 1.7 10^3/uL (0.8-4.8) 07/20/22 02:00 Hubbard # (Auto) 0.6 10^3/uL (0.2-0.9) 07/20/22 02:00 Eos # (Auto) 0.4 10^3/uL (0.0-0.8) 07/20/22 02:00 Baso # (Auto) 0.1 10^3/uL (0.0-0.1) 07/20/22 02:00 Nucleated RBC % (auto) 0 % 07/20/22 02:00 Nucleated RBCs # 0.0 /100WBC 07/20/22 02:00 PT 14.80 SECONDS (12.1-14.9) 07/20/22 02:00 INR 1.13 (0.8-1.2) 07/20/22 02:00 D-Dimer 0.38 ug/mIFEU (0-0.59) 07/19/22 18:10 Sodium 138 mmol/L (136-145) 07/20/22 21:57 Potassium 3.7 mmol/L (3.5-5.1) 07/20/22 21:57 Chloride 103 mmol/L (98-107) 07/20/22 21:57 Carbon Dioxide 22 mmol/L (22-29) 07/20/22 21:57 Anion Gap 16.7 (5-19) 07/20/22 21:57 BUN 13 mg/dL (8-23) 07/20/22 21:57 Creatinine 1.2 mg/dL (0.7-1.2) 07/20/22 21:57 GFR Calculation Not Reportable 07/20/22 21:57 Glucose 231 mg/dL (65-115) H 07/20/22 21:57 Calculated Osmolality 293 mOsm/kg (285-295) 07/20/22 21:57 Lactic Acid 1.0 mmol/L (0.5-2.2) 07/19/22 21:05 Calcium 8.1 mg/dL (8.5-10.5) L 07/20/22 21:57 Phosphorus 2.1 mg/dL (2.5-4.5) L 07/20/22 21:57 Magnesium 1.6 mg/dL (1.7-2.3) L 07/20/22 21:57 Total Bilirubin 1.0 mg/dL (0.15-1.2) 07/20/22 02:00 AST 14 U/L (0-40) 07/20/22 02:00 ALT 10 U/L (0-41) 07/20/22 02:00 Alkaline Phosphatase 71 U/L (40-130) 07/20/22 02:00 Troponin T Baseline 14 ng/L (0-15) 07/19/22 18:10 Troponin T 120 Minute 13.97 ng/L (0-15) 07/19/22 20:07 Delta Troponin T -0.03 ABS# (0-10) L 07/19/22 20:07 Troponin T Hi Sens 6Hr 21.07 ng/L (0-15) H 07/20/22 02:00 Troponin T Hi Sens 6Hr Delta 7.07 ng/L (0-12) 07/20/22 02:00 NT-Pro-B Natriuret Pep 246 pg/mL (0-450) 07/19/22 20:07 Total Protein 5.3 g/dL (6.6-8.7) L 07/20/22 02:00 Albumin 3.4 g/dL (3.5-5.2) L 07/20/22 02:00 Globulin 1.9 g/dL (1.3-4.6) 07/20/22 02:00 Procalcitonin 0.04 ng/mL (0-0.5) 07/19/22 20:07 TSH 1.50 uIU/mL (0.27-4.20) 07/19/22 20:07 Urine Color Yellow (Yellow) 07/20/22 06:00 Urine Appearance Clear (CLEAR) 07/20/22 06:00 Urine pH 6 (5-7) 07/20/22 06:00 Ur Specific [place] 1.020 (1.005-1.030) 07/20/22 06:00 Urine Protein Neg (Negative) 07/20/22 06:00 Urine Glucose (UA) Norm (Normal) 07/20/22 06:00 Urine Ketones Negative (Negative) 07/20/22 06:00 Urine Blood Neg (Negative) 07/20/22 06:00 Urine Nitrate Negative (Negative) 07/20/22 06:00 Urine Bilirubin Neg (Negative) 07/20/22 06:00 Urine Urobilinogen Norm mg/dL (Negative) 07/20/22 06:00 Ur Leukocyte Esterase Negative (Negative) 07/20/22 06:00 SARS-CoV-2 Ag (Rapid) Negative (Negative) 07/21/22 15:55 Radiology Impressions Chest X-Ray 07/19/22 18:00 IMPRESSION: No focal acute pulmonary disease. Cervical Spine CT 07/19/22 20:33 IMPRESSION: Negative for acute cervical spine abnormality. Date of Service: 07/19/22 Procedure(s): CV. echo complete* [id number] Accession Number(s): [id number] Report Number: [id number] ?Lazaro Moody ?Age:? ? 76 ? ? Gender: ? ? M ?:? ? 1945 ?Exam Date: ? ? 07/19/2022 22:47 ?Ordering Phys: ? ? Vinicius Marshall? ?Technologist:? ? ? BL ?Exam Location:? ? ? [facility] ?MRN:? ? [id number] ?Account Number: ? ? ? [id number] ?Indication:? ? ? recurrent syncope x 6 weeks. No history of cardiac ? intervention per patient. ?BP: ? 134 ? ? / ? 84? ? ? HR: ? 56 ?Rhythm: ? Sinus ?Technical Quality:? ? ? Adequate ?MEASUREMENTS? (Male / Female) Normal Values ?2D ECHO ?LV Diastolic Diameter PLAX? 4.0 cm? 4.2 - 5.9 / 3.9 - 5.3 cm ?LV Systolic Diameter PLAX ? 2.9 cm?IVS Diastolic Thickness ? 1.8 cm? 0.6 - 1.0 / 0.6 - 0.9 cm ?IVS Systolic Thickness? 2.0 cm?LVPW Diastolic Thickness? 1.3 cm? 0.6 - 1.0 / 0.6 - 0.9 cm ?LVPW Systolic Thickness ? 1.7 cm?LVOT Diameter ? 1.9 cm?LV Ejection Fraction 2D Teich ? ? 54.2 %?LV Ejection Fraction MOD 2C ? ? ? 77.9 %?LV Ejection Fraction 2C AL? 77.3 %?LA Diameter ? 3.6 cm?LA Width? 4.0 cm?LA Height ? 4.8 cm?RA Width? 4.2 cm?RA Height ? 5.1 cm?Aorta at Sinotubular Diameter ? ? 3.5 cm?IVC Diameter? 1.7 cm?M-MODE ?Aortic Annulus Diameter ? 3.5 cm?LA Ao Ratio MM? 1.1 ?MV E Point Septal Separation? ? ? 0.2 cm?DOPPLER ?AV Peak Velocity? 114.0 cm/s?LVOT Peak Velocity? 108.0 cm/s?AV Area Cont Eq vti ? 2.9 cm squared ?AV Area Cont Eq pk? 2.7 cm squared ?MV Peak Velocity? 106.0 cm/s?MV Area PHT ? 3.9 cm squared ?Mitral E to A Ratio ? 1.1 ?MV E' Velocity? 55.5 cm/s ?Mitral E to MV E' Ratio ? 11.5?Mitral E to LV E' Lateral Ratio ? 11.7?Mitral E to LV E' Septal Ratio? ? 11.2?TR Peak Velocity? 232.3 cm/s?TR Peak Gradient? 21.6 mmHg ?TV Peak E Velocity? 40.0 cm/s ?Right Atrial Pressure ? 5.0 mmHg?Pulmonary Artery Systolic Pressu? 26.6 mmHg ?PV Peak Velocity? 78.0 cm/s ?RV Acceleration Time? 0.1 s ?RV Ejection Time? 0.4 s ?RV AcT/ET ? 0.3 ?FINDINGS ?Left Ventricle ?Left ventricle is normal in size.? LV systolic function is ?normal with EF of 55 to 60%.? No regional wall motion ?abnormalities are seen.? Diastolic function is normal. ?Right Ventricle ?Normal in size and function ?Right Atrium ?Normal in size ?Left Atrium ?Normal in size ?Mitral Valve ?Structurally normal mitral valve.? No significant stenosis or ?regurgitation seen. ?Aortic Valve ?Structurally normal aortic valve.? No significant aortic ?stenosis or regurgitation is seen. ?Tricuspid Valve ?Trace tricuspid regurgitation.? Insufficient TR jet to calculate ?RVSP. ?Pulmonic Valve ?Not well-visualized.? Mild pulmonic regurgitation. ?Pericardium ?Normal ?Aorta ?Normal in size ?IVC ?CONCLUSIONS ?LV systolic function is normal with EF of 55 to 60%. ?Diastolic function is normal. ?Trace tricuspid regurgitation.? Mild pulmonic regurgitation. ?No comparison studies are available. Recent Clincial Data Last Vital Signs Temp 97.8 F 07/21/22 20:00 Pulse 62 07/21/22 21:15 Resp 17 07/21/22 21:15 BP 145/72 07/21/22 21:15 Pulse Ox 83 L 07/21/22 21:15 O2 Del Method 07/21/22 20:00 O2 Flow Rate 2 07/20/22 08:00 Vital Signs Temp Pulse Resp BP Pulse Ox O2 Del Method 07/21/22 21:15 62 17 145/72 83 L 07/21/22 21:00 57 L 21 H 146/94 98 07/21/22 20:45 59 L 24 H 144/86 96 07/21/22 20:30 60 16 142/72 96 07/21/22 20:15 68 19 H 132/72 93 07/21/22 20:00 97.8 F 67 23 H 97 Room Air 07/21/22 19:45 67 31 H 139/78 94 07/21/22 19:30 66 23 H 150/89 07/21/22 19:15 68 30 H 138/90 96 07/21/22 19:00 61 20 H 140/70 97 07/21/22 16:00 97.7 F 62 17 120/63 96 07/21/22 16:00 97.7 F 62 07/21/22 14:00 62 07/21/22 12:00 98.0 F 62 17 120/63 96 07/21/22 12:00 98.0 F 62 17 120/63 Intake & Output/Weight 07/19/22 07/20/22 07/21/22 07/22/22 06:59 06:59 06:59 06:59 Intake Total 1761.716 / 9175.103 6049.451 / 2163.451 Output Total 370 / 370 370 / 370 1225 / 1225 Balance -370 / -370 1391.716 / 1391.716 938.451 / 938.451 Weight 90.9 kg Vitals Last Vital Signs Temp 97.8 F 07/21/22 20:00 Pulse 62 07/21/22 21:15 Resp 17 07/21/22 21:15 BP 145/72 07/21/22 21:15 Pulse Ox 83 L 07/21/22 21:15 O2 Del Method 07/21/22 20:00 O2 Flow Rate 2 07/20/22 08:00 TS Medications Medications Atorvastatin Calcium (Atorvastatin 40 Mg Tablet) 40 mg PO DAILY ANDREW Last Admin: 07/21/22 10:29 Dose: 40 mg Carvedilol (Carvedilol 3.125 Mg Tablet) 3.125 mg PO BID [facility] Last Admin: 07/21/22 17:56 Dose: 3.125 mg Sodium Chloride (Sodium Chloride 0.9%) 1,000 mls @ 50 mls/hr IV .Q20H [facility] Last Admin: 07/21/22 16:53 Dose: 50 mls/hr Amiodarone HCl 900 mg/Dextrose/ IV Miscellaneous Supplies 518 mls @ 34.533 mls/hr IV CONT [facility] Last Admin: 07/21/22 15:00 Dose: 1 mg/min, 34.53 mls/hr Naloxone HCl (Naloxone 0.4 Mg/Ml Sdv) 0.1 mg IVP Q2M PRN PRN Reason: OPIATERV Ondansetron HCl (Ondansetron 2 Mg/Ml Sdv 2 Ml) 4 mg IVP Q8H PRN PRN Reason: vomiting, or N/V if npo Oxycodone HCl (Oxycodone 5 Mg Ir Tab/Cap) 5 mg PO Q6H PRN PRN Reason: SEVERE PAIN Pantoprazole Sodium (Pantoprazole 40 Mg Sdv) 40 mg IVP Q24H [facility] Last Admin: 07/21/22 00:51 Dose: 40 mg Tramadol HCl (Tramadol 50 Mg Tablet) 50 mg PO BID PRN PRN Reason: MODERATE PAIN Last Admin: 07/21/22 21:23 Dose: 50 mg Discontinued Medications Diphenhydramine HCl (Diphenhydramine 50 Mg/Ml Sdv 1ml) Confirm Administered Dose 50 mg .ROUTE .STK-MED ONE Stop: 07/20/22 08:23 Enoxaparin Sodium (Enoxaparin 100 Mg/Ml Syringe) 90 mg SUBCUT ONCE ONE Stop: 07/20/22 01:05 Last Admin: 07/20/22 02:04 Dose: 90 mg Fentanyl (Fentanyl 50 Mcg/Ml Inj 2ml) Confirm Administered Dose 100 mcg .ROUTE .STK-MED ONE Stop: 07/20/22 08:06 Heparin Sodium (Porcine) (Heparin 5,000 Unit/Ml Inj 1 Ml) Confirm Administered Dose 10,000 unit .ROUTE .STK-MED ONE Stop: 07/20/22 08:06 Lidocaine HCl (Lidocaine 1%) Confirm Administered Dose 3 mls @ as directed .ROUTE .STK-MED ONE Stop: 07/20/22 08:06 Amiodarone HCl 150 mg/Dextrose/ IV Miscellaneous Supplies 103 mls @ 412 mls/hr IV ONCE ONE Stop: 07/20/22 16:49 Last Infusion: 07/20/22 18:42 Dose: Infused Magnesium Sulfate (Magnesium Sulfate Premix) 2 gm in 50 mls @ 50 mls/hr IV ONCE ONE Stop: 07/20/22 23:51 Last Infusion: 07/21/22 00:50 Dose: Infused Lidocaine HCl 5 ml/ Potassium (Chloride) 105 mls @ 25 mls/hr IV ONCE ONE Stop: 07/21/22 03:05 Last Infusion: 07/21/22 04:16 Dose: Infused Methylprednisolone Sodium Succinate (Methylprednisolone Sod Succ 125 Mg/2 Ml Inj) Confirm Administered Dose 125 mg .ROUTE .STK-MED ONE Stop: 07/20/22 08:23 Midazolam HCl (Midazolam 1 Mg/Ml Inj 2 Ml) Confirm Administered Dose 2 mg .ROUTE .STK-MED ONE Stop: 07/20/22 08:06 Nitroglycerin (Nitroglycerin 5 Mg/Ml Sdv 10 Ml) Confirm Administered Dose 50 mg .ROUTE .STK-MED ONE Stop: 07/20/22 08:06 Oxycodone/Acetaminophen (Oxycodone-Apap 5-325 Mg Tablet) 1 tab PO ONCE ONE Stop: 07/19/22 19:47 Last Admin: 07/19/22 20:06 Dose: 1 tab Allergies aspirin Allergy (Unknown, Verified 07/14/22 10:45) Unknown codeine Allergy (Unknown, Verified 07/14/22 10:45) Unknown esomeprazole [From Nexium] Allergy (Unknown, Verified 07/14/22 10:45) Unknown hydrocodone Allergy (Unknown, Verified 07/14/22 10:45) Unknown hydromorphone Allergy (Unknown, Verified 07/14/22 10:45) Unknown iodine Allergy (Unknown, Verified 07/14/22 10:45) Unknown latex Allergy (Unknown, Verified 07/14/22 10:45) Unknown morphine Allergy (Unknown, Verified 07/14/22 10:45) Unknown niacin Allergy (Unknown, Verified 07/14/22 10:45) Unknown zolpidem [From Ambien] Allergy (Unknown, Verified 07/14/22 10:45) Unknown oxycodone Allergy (Verified 07/21/22 21:08) ALGY-Rash [id number] Allergy (Unknown, Uncoded 07/14/22 10:45) Unknown Home Medications atorvastatin 20 mg tablet 20 mg PO DAILY 07/14/22 [History Confirmed 07/20/22] lisinopril 10 mg tablet 10 mg PO DAILY 07/14/22 [History Confirmed 07/20/22] tramadol 50 mg tablet 50 mg PO BID PRN Pain 07/14/22 [History Confirmed 07/20/22] Discharge Plan Discharge Patient Disposition: Xfer Other Condition: Stable Prescriptions: No Action atorvastatin 20 mg tablet 20 mg PO DAILY tramadol 50 mg tablet 50 mg PO BID PRN (Reason: Pain) lisinopril 10 mg tablet 10 mg PO DAILY Discharge Orders: Transfer Out of Facility (Order); Ordered 07/21/22 Ordered By: Skylar Hernandez Discharge Diet: Cardiac Patient Instructions: Opioid Safety Transfer Attestations Time Spent in Transfer Care: greater than 30 min Quality Metrics Clinical Quality Measures [ No reported AMI, CVA or VTE this stay] Coding Level of Care Code Acute Digital Performance Analyst for Trudyg Fwd Diagnoses Syncope and collapse R55 Unstable angina I20.0 Ventricular tachycardia I47.2
[2022-07-22] VITALS (48 sets, daily range): BP systolic 111–164; BP diastolic 62–97; PULSE 44–64; RESP 10–30; TEMP 36.2–36.7; O2SAT 80–98
[2022-07-22] MEDS: pantoprazole 40 mg SDV IVP (01:06)
--- NOTE | 2022-07-22 02:16 | PC.NURSE ---
Bradycardia Patient's HR maintaining in the low 50s with frequent declines into the low 40s. Patient asymptomatic with all other vitals stable, amio mainentance infusion administering at 1 mg/min. Dr. Marshall informed of bradycardia, order received to hold amio infusion. Infusion stopped per JAN.
--- NOTE | 2022-07-22 04:50 | PC.NURSE ---
Speech Eval Throughout night patient spit out approximately 300 ml of pudding like substance. Patient denies nausea, vomiting, and choking while eating; no choking, vomiting observed. Patient stated that the food goes down fine, I just can't get it to go all the way down to my stomach. 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 Condition nor surgery listed in history; Dr. Marshall contacted and order received for a speech therapy consult.
[2022-07-22 07:32] LABS: Alanine Aminotransferase 8 U/L (0-41); Albumin Level 2.9 g/dL (3.5-5.2); Alkaline Phosphatase 67 U/L (40-130); Anion Gap 11.9 (5-19); Aspartate Amino Transferase 19 U/L (0-40); Blood Urea Nitrogen 12 mg/dL (8-23); Calcium 7.9 mg/dL (8.5-10.5); Carbon Dioxide 24 mmol/L (22-29); Chloride 108 mmol/L (98-107); Globulin 2.4 g/dL (1.3-4.6); Glucose 89 mg/dL (65-115); Osmolality Calculated 289 mOsm/kg (285-295); Potassium 3.9 mmol/L (3.5-5.1); Sodium 140 mmol/L (136-145); Total Bilirubin 0.8 mg/dL (0.15-1.2); Total Protein 5.3 g/dL (6.6-8.7)
[2022-07-22 07:33] LABS: Basophils # 0.1 10^3/uL (0.0-0.1); Basophils % 0.7 %; Eosinophils # 0.3 10^3/uL (0.0-0.8); Eosinophils % 3.1 %; Hematocrit 39.7 % (42.0-52.0); Hemoglobin 13.1 g/dL (11.7-16.6); Lymphocytes # 1.4 10^3/uL (0.8-4.8); Lymphocytes % 15.7 %; Mean Corpuscular Hemoglobin 30.8 pg (28.0-34.0); Mean Corpuscular Volume 93.2 fl (80-94); Monocytes # 0.6 10^3/uL (0.2-0.9); Monocytes % 6.9 %; Neutrophils # 6.74 10^3/uL (1.8-7.7); Neutrophils % 73.3 %; Nucleated Red Blood Cells % 0 %; Platelet Count 151 10^3/cmm (130-400); Red Blood Count 4.26 10^6/uL (4.1-5.3); Red Cell Distribution Width 14.1 % (12.1-15.1); White Blood Count 9.2 10^3/uL (4.0-10.0)
--- NOTE | 2022-07-22 10:08 | PM.PN ---
Subjective Subjective: Patient is stable. No more VT episodes. Amiodarone gtt held last night secondary to bradycardia. Vitals/I&O/Wt Last Vital Signs Temp 97.5 F L 07/22/22 08:00 Pulse 61 07/22/22 08:00 Resp 22 H 07/22/22 08:00 BP 159/83 07/22/22 08:00 Pulse Ox 98 07/22/22 08:00 O2 Del Method 07/22/22 08:00 O2 Flow Rate 2 07/20/22 08:00 07/21/22 07/22/22 07/22/22 22:59 06:59 14:59 Intake Total 1120 / 2163.451 383.859 / 2547.310 Output Total 925 / 1225 450 / 1675 Balance 195 / 938.451 -66.141 / 872.310 Physical Exam Narrative: GENERAL: Patient is alert, awake and oriented x3. [] NECK: No jugular vein distension. [] HEENT: No cyanosis. No icterus. No pallor. [] HEART: Regular S1 and S2. No murmur, rub or gallop. [] LUNGS: Clear to auscultate bilaterally. [] ABDOMEN: Soft, nontender and nondistended. Positive bowel sounds. No guarding, rebound or tenderness. [] CENTRAL NERVOUS SYSTEM: Grossly nonfocal. [] EXTREMITIES: Lower extremities with no edema bilaterally. Pulses palpable in the lower extremities, both dorsalis pedis and posterior tibial. [] Data : 07/22/22 06:50 07/22/22 06:50 Micro: Microbiology 07/21/22 11:05 C.difficile Toxin B Gene (PCR) - Final Stool - Stool Aspirate A&P Assessment and plan (1) Syncope and collapse: Status: Acute (2) Unstable angina: Status: Acute (3) Ventricular tachycardia: Status: Acute Plan Patient has been having syncopal episodes and was found to have ventricular tachycardia on Holter monitor. Underwent coronary angiogram yesterday that showed no significant coronary artery disease. Echocardiogram shows normal LV systolic function. Patient was started on amiodarone. Has not had any more VT episodes in the last 36 hours. Awaiting transfer for EP study and possible ablation to [facility]. He may need ICD placement for secondary prevention depending on EP study and ablation results. Amiodarone was held last night because of bradycardia. Will recommend continuing amiodarone and drip and holding Coreg for now. Thank you for involving us with care of this patient. We will continue to follow. Please call with questions. Attestations Medical Necessity Statement*: Care expected to cross 2 midnights. Coding Level of Care Code Acute Employment Law Specialist for Christine Montgomery Diagnoses Syncope and collapse R55 Unstable angina I20.0 Ventricular tachycardia I47.2
--- NOTE | 2022-07-22 10:32 | ECG_ITS ---
[facility] Test Date: 2022-07-22 Pat Name: Lazaro Moody Department: Room: [facility] Gender: Male Director Speech Language: : 1945 Requested By: Skylar Hernandez Order Number: [id number] Madelaine MD: Andrés White M.D. Measurements Intervals [place] Rate: 50 P: 47 PA: 143 QRS: 8 QRSD: 97 T: 24 QT: 494 QTc: 450 Interpretive Statements SINUS BRADYCARDIA PROLONGED QT INTERVAL Compared to ECG 07/20/2022 00:03:49 Prolonged QT interval now present Electronically Signed On 07-23-2022 9:27:16 CDT by Andrés White M.D. [email or web address] generalTru[facility]is/store/[id number]
--- NOTE | 2022-07-22 10:53 | PM.PN ---
Subjective Subjective: No events of V. tach yesterday. He is currently off amiodarone. EKG shows sinus bradycardia with heart rate in the 50s. He has been on bedrest as prior attempts at ambulating 2 days ago resulted in episodes of V. tach. We are still awaiting transfer to [facility] in [place]. He denies any current chest pain dyspnea or palpitations. Had some sharp shooting pain last night which he attributes was to putting getting stuck . This has not recurred. No concerning telemetry correlate at the time. Medications: Reviewed: Yes Vitals/I&O/Wt Last Vital Signs Temp 97.5 F L 07/22/22 08:00 Pulse 61 07/22/22 08:00 Resp 22 H 07/22/22 08:00 BP 159/83 07/22/22 08:00 Pulse Ox 98 07/22/22 08:00 O2 Del Method 07/22/22 08:00 O2 Flow Rate 2 07/20/22 08:00 07/21/22 07/22/22 07/22/22 22:59 06:59 14:59 Intake Total 1120 / 2163.451 383.859 / 2547.310 Output Total 925 / 1225 450 / 1675 Balance 195 / 938.451 -66.141 / 872.310 Physical Exam Narrative: General: No acute distress, AO x3 HEENT: PERRLA, pupils bilaterally equal and reactive, pallors not present Chest: Normal vesicular breath sounds, no added sounds, equal good air entry bilaterally CVS: S1-S2 regular, no murmurs, no tachycardia, no gallops, no rubs Abdomen: Soft, nontender, no organomegaly, bowel sounds present Neuro: No focal deficits, no facial deformity, AO x3, power 5/5 in all limbs Data : 07/22/22 06:50 07/22/22 06:50 Micro: Microbiology 07/21/22 11:05 C.difficile Toxin B Gene (PCR) - Final Stool - Stool Aspirate A&P Assessment and plan (1) Syncope and collapse: Status: Acute (2) Unstable angina: Status: Acute (3) Ventricular tachycardia: Status: Acute Plan Syncope and collapse -Outpatient event monitor showing nonsustained V. tach Likely etiology to be episodes of sustained V. tach. Originally had witnessed runs of V. tach, longest 1 minute on 07/20/2022. Episodes were noted while attempting to defecate and when trying to get from bed to bedside commode. Patient has been on bedrest ever since. He received amiodarone infusion between the evening of 07/20 to 07/21/2022. No recurrent V. tach. Patient is status post cardiac cath 07/20. Coronaries were clean, no intervention. Echo LV systolic function is normal with EF of 55 to 60%. ?Diastolic function is normal. Stop Coreg given sinus bradycardia. Resume amiodarone infusion at 0.5mg/h Awaiting transfer to [facility] for electrophysiology studies, possible ablation and defibrillator Attestations Medical Necessity Statement*: Need for EP studies, ablation, awaiting transfer to [facility]. Currently on amiodarone infusion Coding Level of Care Code Acute Vascular Nurse for Christine Montgomery Diagnoses Syncope and collapse R55 Unstable angina I20.0 Ventricular tachycardia I47.2
[2022-07-22] MEDS: atorvastatin 40 mg Tablet PO (10:54)
[2022-07-22] MEDS: sodium chloride 0.9% 1,000 ML 50 ML IV (11:52)
[2022-07-23] VITALS (28 sets, daily range): BP systolic 126–207; BP diastolic 62–132; PULSE 41–94; RESP 0–28; TEMP 36.7; O2SAT 91–98
--- NOTE | 2022-07-23 00:28 | PC.NURSE ---
HR sustaining 41-49 bpm regularly tonight, contacted Dr. Marshall. Verbal order to hold Amiodarone.
--- NOTE | 2022-07-23 01:49 | PC.NURSE ---
Spoke with Antonella at [facility] regarding patient, provided updates and was informed that there will likely be no bed placement tonight, but they are still hopeful for tomorrow
[2022-07-23] MEDS: pantoprazole 40 mg SDV IVP (02:02)
--- NOTE | 2022-07-23 05:44 | PC.NURSE ---
requested we call her on cell phone for updates. [phone]
[2022-07-23 06:38] LABS: Alanine Aminotransferase 11 U/L (0-41); Alkaline Phosphatase 67 U/L (40-130); Anion Gap 12.8 (5-19); Aspartate Amino Transferase 18 U/L (0-40); Blood Urea Nitrogen 11 mg/dL (8-23); Calcium 8.3 mg/dL (8.5-10.5); Carbon Dioxide 24 mmol/L (22-29); Chloride 109 mmol/L (98-107); Globulin 2.2 g/dL (1.3-4.6); Glucose 83 mg/dL (65-115); Osmolality Calculated 293 mOsm/kg (285-295); Phosphorus 3.1 mg/dL (2.5-4.5); Potassium 3.8 mmol/L (3.5-5.1); Sodium 142 mmol/L (136-145); Total Bilirubin 1.1 mg/dL (0.15-1.2); Total Protein 5.2 g/dL (6.6-8.7)
--- NOTE | 2022-07-23 07:13 | PM.PN ---
Subjective Subjective: This patient was admitted on the with episodes of syncope and collapse and was found to have ventricular tachycardia. He underwent coronary angiography which was normal. He also has normal LV function. Arrangements have been made to send him to [facility] for an electrophysiologic study. We have been awaiting a bed for about 4 days. The patient is becoming fairly irritated by the delay and is becoming unhappy. His other history includes mild chronic kidney disease, hypertension and dyslipidemia. Amiodarone has been discontinued due to bradycardia. For now he is not having any arrhythmias. Beta blockers have also been held due to bradycardia. Vitals/I&O/Wt Last Vital Signs Temp 98.0 F 07/22/22 20:00 Pulse 51 L 07/23/22 06:30 Resp 14 07/23/22 06:30 BP 129/69 07/23/22 06:00 Pulse Ox 94 07/23/22 06:30 O2 Del Method 07/23/22 02:15 O2 Flow Rate 2 07/20/22 08:00 07/22/22 07/23/22 07/23/22 22:59 06:59 14:59 Intake Total 134.141 / 1083.308 250.807 / 1334.115 Output Total 1325 / 1325 525 / 1850 Balance -1190.859 / -241.692 -274.193 / -515.885 Physical Exam Narrative: GENERAL: In general he is fast asleep this morning. I did not awaken him. HEENT: Exam within normal limits. NECK: Supple without jugular vein distention. The carotid upstroke is normal without bruits. BACK: Exam normal. LUNGS: Clear. HEART: Regular rate and rhythm. ABDOMEN: Benign without organomegaly or tenderness. EXTREMITIES: No edema. NEUROLOGIC: Exam normal. SKIN: Unremarkable. Data : 07/22/22 06:50 07/23/22 05:51 Micro: Microbiology 07/21/22 11:05 C.difficile Toxin B Gene (PCR) - Final Stool - Stool Aspirate A&P Assessment and plan (1) Syncope and collapse: Status: Acute (2) Ventricular tachycardia: Status: Acute (3) HTN (hypertension): Status: Acute (4) Hyperlipidemia: Status: Acute (5) CKD (chronic kidney disease): Status: Acute Plan Awaiting bed availability at [facility]. In the meantime he must stay monitored. Attestations Medical Necessity Statement*: Hospitalization for ventricular tachycardia causing syncope and collapse. Coding Level of Care Code Established Pt Acute Director Of Corporate Responsibility for Christine Montgomery Patient Type Established History Detailed Exam Detailed Medical Decision Making Moderate Complexity Diagnoses Syncope and collapse R55 Ventricular tachycardia I47.2 HTN (hypertension) I10 Hyperlipidemia E78.5 CKD (chronic kidney disease) N18.9
[2022-07-23] MEDS: atorvastatin 40 mg Tablet PO (08:45)
[2022-07-23] MEDS: sodium chloride 0.9% 1,000 ML 50 ML IV (08:45)
[2022-07-23] MEDS: ALPRAZolam 0.5 mg Tablet PO (10:35)
--- NOTE | 2022-07-23 10:50 | PC.NURSE ---
very tearful this am and somewhat depressed . anxious, feels like i am going to today and i have been waiting here for long time to get bed at [facility]. call placed to [facility] at this time still on waiting list at this time update given have talked with and also called son lj so pt could talk to him at this time. Doctor called with medication ordered for anxiety at this time. voiding large amts with no distress
--- NOTE | 2022-07-23 11:33 | P.TS_ITS ---
Transfer Summary Providers Date of Admission: 07/20/22 01:04 Date of Discharge/Transfer: 07/23/22 Attending Provider at Admission: Vinicius Marshall MD Attending Provider at Transfer: Skylar Hernandez MD Consults: Dr. King Farmer, cardiology Transfer Plans: Anticipated date of transfer: 07/23/22 . Receiving Facility: [place], [place] . Receiving Provider: Dr. Anderson hospitalist . Additional transfer facility information: Second Time Worker (EP) Dr. Cook. Diagnoses at Discharge Discharge Diagnosis (1) Syncope and collapse: Status: Acute (2) Ventricular tachycardia: Status: Acute (3) HTN (hypertension): Status: Acute (4) Hyperlipidemia: Status: Acute (5) CKD (chronic kidney disease): Status: Acute Reason for Visit Reason for Visit Chest pains Hospital Course Hospital Course Mr. Moody is 76M with a past medical history of hypertension, hyperlipidemia, CHF, CKD?admitted on Jul 19 for recurrent syncopal episodes, collapse, substernal chest pain.? Patient for the last few weeks has been having episodes of syncope, and passing out and collapsing. He describes of chest pain pressure- like, associated lightheadedness, dizziness, no nausea, no vomiting, diaphoresis.?He saw cardiology as outpatient who ordered an event monitor and patient was found to have nonsustained V. tach episodes co relating with his symptoms. EKG showed normal sinus rhythm with PACs.? Event monitor also showed episodes of SVT in addition to VT. Troponins were negative. He underwent coronary angiogram without obstrcutive CAD.Echo?LV systolic function is normal with EF of 55 to 60%. ?Diastolic function is normal.No regional wall motion abnormalities. He had episodes of v tach on 07/20 precipitated by defectaion and attempting to get out of bed. Longest episode lasted 1 minute. He has remained on bed rest since then. He received amiodarone infusion between the evening of 07/20 to 07/22/2022.?Amiodarone was discontinued thereafter due to noted episodes of sinus bradycardia in angelina 40s. No recurrent V. tach since then however he has remained on bed rest and still complains of pressure like sensation in the chest intermittently without a telemetry co relate. Beta blockers have also been held due to bradycardia. HR ranges between 45-80bpm. He needs EP studies with possible ablation and placement of defibrillator. Tranfer is being made as we do not have EP services available at [facility]. He has been accepted today at [facility] in [place]. Physical Exam Narrative: General: No acute distress, AO x3 HEENT: PERRLA, pupils bilaterally equal and reactive, pallors not present Chest: Normal vesicular breath sounds, no added sounds, equal good air entry bilaterally CVS: S1-S2 regular, no murmurs, no tachycardia, no gallops, no rubs Abdomen: Soft, nontender, no organomegaly, bowel sounds present Neuro: No focal deficits, no facial deformity, AO x3, power 5/5 in all limbs Extremities: no clubbing edema or cyanosis TS Data Studies Completed and Pending Pending at discharge Category Date Time Status ALINING INSPECTOR request for service Routine Exams 07/20/22 08:04 Taken Comprehensive Metabolic Panel AM LABS Lab 07/24/22 04:00 Ordered Magnesium AM LABS Lab 07/24/22 04:00 Ordered Phosphorus AM LABS Lab 07/24/22 04:00 Ordered Labs from last 24 hours 07/23/22 05:51 Sodium 142 Potassium 3.8 Chloride 109 H Carbon Dioxide 24 Anion Gap 12.8 BUN 11 Creatinine 1.0 GFR Calculation Not Reportable Glucose 83 Calculated Osmolality 293 Calcium 8.3 L Phosphorus 3.1 Magnesium 2.0 Total Bilirubin 1.1 AST 18 ALT 11 Alkaline Phosphatase 67 Total Protein 5.2 L Albumin 3.0 L Globulin 2.2 Completed Studies During Hospitalization Category Date Time Status CT cervical spin wo con* [id number] Stat Cat Scan 07/19/22 20:33 Completed XR chest 1V portable [id number] Stat Exams 07/19/22 18:00 Completed CV carotid duplex BI* [id number] Stat Ultrasound 07/19/22 20:29 [place] [id number] Stat Ultrasound 07/19/22 20:27 Completed CV. echo complete* [id number] Stat Ultrasound 07/19/22 20:27 Completed Laboratory Last Values WBC 9.2 10^3/uL (4.0-10.0) 07/22/22 06:50 RBC 4.26 10^6/uL (4.1-5.3) 07/22/22 06:50 Hgb 13.1 g/dL (11.7-16.6) 07/22/22 06:50 Hct 39.7 % (42.0-52.0) L 07/22/22 06:50 MCV 93.2 fl (80-94) 07/22/22 06:50 MCH 30.8 pg (28.0-34.0) 07/22/22 06:50 MCHC 33.0 g/dL (30.0-36.0) 07/22/22 06:50 RDW 14.1 % (12.1-15.1) 07/22/22 06:50 Plt Count 151 10^3/cmm (130-400) 07/22/22 06:50 MPV 11.0 fL (7.4-10.4) H 07/22/22 06:50 Neut % (Auto) 73.3 % 07/22/22 06:50 Lymph % (Auto) 15.7 % 07/22/22 06:50 Caldwell % (Auto) 6.9 % 07/22/22 06:50 Eos % (Auto) 3.1 % 07/22/22 06:50 Baso % (Auto) 0.7 % 07/22/22 06:50 Neut # (Auto) 6.74 10^3/uL (1.8-7.7) 07/22/22 06:50 Lymph # (Auto) 1.4 10^3/uL (0.8-4.8) 07/22/22 06:50 Caldwell # (Auto) 0.6 10^3/uL (0.2-0.9) 07/22/22 06:50 Eos # (Auto) 0.3 10^3/uL (0.0-0.8) 07/22/22 06:50 Baso # (Auto) 0.1 10^3/uL (0.0-0.1) 07/22/22 06:50 Nucleated RBC % (auto) 0 % 07/22/22 06:50 Nucleated RBCs # 0.0 /100WBC 07/22/22 06:50 PT 14.80 SECONDS (12.1-14.9) 07/20/22 02:00 INR 1.13 (0.8-1.2) 07/20/22 02:00 D-Dimer 0.38 ug/mIFEU (0-0.59) 07/19/22 18:10 Sodium 142 mmol/L (136-145) 07/23/22 05:51 Potassium 3.8 mmol/L (3.5-5.1) 07/23/22 05:51 Chloride 109 mmol/L (98-107) H 07/23/22 05:51 Carbon Dioxide 24 mmol/L (22-29) 07/23/22 05:51 Anion Gap 12.8 (5-19) 07/23/22 05:51 BUN 11 mg/dL (8-23) 07/23/22 05:51 Creatinine 1.0 mg/dL (0.7-1.2) 07/23/22 05:51 GFR Calculation Not Reportable 07/23/22 05:51 Glucose 83 mg/dL (65-115) 07/23/22 05:51 Calculated Osmolality 293 mOsm/kg (285-295) 07/23/22 05:51 Lactic Acid 1.0 mmol/L (0.5-2.2) 07/19/22 21:05 Calcium 8.3 mg/dL (8.5-10.5) L 07/23/22 05:51 Phosphorus 3.1 mg/dL (2.5-4.5) 07/23/22 05:51 Magnesium 2.0 mg/dL (1.7-2.3) 07/23/22 05:51 Total Bilirubin 1.1 mg/dL (0.15-1.2) 07/23/22 05:51 AST 18 U/L (0-40) 07/23/22 05:51 ALT 11 U/L (0-41) 07/23/22 05:51 Alkaline Phosphatase 67 U/L (40-130) 07/23/22 05:51 Troponin T Baseline 14 ng/L (0-15) 07/19/22 18:10 Troponin T 120 Minute 13.97 ng/L (0-15) 07/19/22 20:07 Delta Troponin T -0.03 ABS# (0-10) L 07/19/22 20:07 Troponin T Hi Sens 6Hr 21.07 ng/L (0-15) H 07/20/22 02:00 Troponin T Hi Sens 6Hr Delta 7.07 ng/L (0-12) 07/20/22 02:00 NT-Pro-B Natriuret Pep 246 pg/mL (0-450) 07/19/22 20:07 Total Protein 5.2 g/dL (6.6-8.7) L 07/23/22 05:51 Albumin 3.0 g/dL (3.5-5.2) L 07/23/22 05:51 Globulin 2.2 g/dL (1.3-4.6) 07/23/22 05:51 Procalcitonin 0.04 ng/mL (0-0.5) 07/19/22 20:07 TSH 1.50 uIU/mL (0.27-4.20) 07/19/22 20:07 Urine Color Yellow (Yellow) 07/20/22 06:00 Urine Appearance Clear (CLEAR) 07/20/22 06:00 Urine pH 6 (5-7) 07/20/22 06:00 Ur Specific [place] 1.020 (1.005-1.030) 07/20/22 06:00 Urine Protein Neg (Negative) 07/20/22 06:00 Urine Glucose (UA) Norm (Normal) 07/20/22 06:00 Urine Ketones Negative (Negative) 07/20/22 06:00 Urine Blood Neg (Negative) 07/20/22 06:00 Urine Nitrate Negative (Negative) 07/20/22 06:00 Urine Bilirubin Neg (Negative) 07/20/22 06:00 Urine Urobilinogen Norm mg/dL (Negative) 07/20/22 06:00 Ur Leukocyte Esterase Negative (Negative) 07/20/22 06:00 SARS-CoV-2 Ag (Rapid) Negative (Negative) 07/21/22 15:55 Radiology Impressions Chest X-Ray 07/19/22 18:00 IMPRESSION: No focal acute pulmonary disease. Cervical Spine CT 07/19/22 20:33 IMPRESSION: Negative for acute cervical spine abnormality. Procedure(s): CV. echo complete* [id number] Accession Number(s): [id number] Report Number: [id number] ?Lazaro Moody ?Age:? ? 76 ? ? Gender: ? ? M ?:? ? 1945 ?Exam Date: ? ? 07/19/2022 22:47 ?Ordering Phys: ? ? Vinicius Marshall? ?Technologist:? ? ? BL ?Exam Location:? ? ? [facility] [place] ?MRN:? ? [id number] ?Account Number: ? ? ? [id number] ?Indication:? ? ? recurrent syncope x 6 weeks. No history of cardiac ? intervention per patient. ?BP: ? 134 ? ? / ? 84? ? ? HR: ? 56 ?Rhythm: ? Sinus ?Technical Quality:? ? ? Adequate ?MEASUREMENTS? (Male / Female) Normal Values ?2D ECHO ?LV Diastolic Diameter PLAX? 4.0 cm? 4.2 - 5.9 / 3.9 - 5.3 cm ?LV Systolic Diameter PLAX ? 2.9 cm?IVS Diastolic Thickness ? 1.8 cm? 0.6 - 1.0 / 0.6 - 0.9 cm ?IVS Systolic Thickness? 2.0 cm?LVPW Diastolic Thickness? 1.3 cm? 0.6 - 1.0 / 0.6 - 0.9 cm ?LVPW Systolic Thickness ? 1.7 cm?LVOT Diameter ? 1.9 cm?LV Ejection Fraction 2D Teich ? ? 54.2 %?LV Ejection Fraction MOD 2C ? ? ? 77.9 %?LV Ejection Fraction 2C AL? 77.3 %?LA Diameter ? 3.6 cm?LA Width? 4.0 cm?LA Height ? 4.8 cm?RA Width? 4.2 cm?RA Height ? 5.1 cm?Aorta at Sinotubular Diameter ? ? 3.5 cm?IVC Diameter? 1.7 cm?M-MODE ?Aortic Annulus Diameter ? 3.5 cm?LA Ao Ratio MM? 1.1 ?MV E Point Septal Separation? ? ? 0.2 cm?DOPPLER ?AV Peak Velocity? 114.0 cm/s?LVOT Peak Velocity? 108.0 cm/s?AV Area Cont Eq vti ? 2.9 cm squared ?AV Area Cont Eq pk? 2.7 cm squared ?MV Peak Velocity? 106.0 cm/s?MV Area PHT ? 3.9 cm squared ?Mitral E to A Ratio ? 1.1 ?MV E' Velocity? 55.5 cm/s ?Mitral E to MV E' Ratio ? 11.5?Mitral E to LV E' Lateral Ratio ? 11.7?Mitral E to LV E' Septal Ratio? ? 11.2?TR Peak Velocity? 232.3 cm/s?TR Peak Gradient? 21.6 mmHg ?TV Peak E Velocity? 40.0 cm/s ?Right Atrial Pressure ? 5.0 mmHg?Pulmonary Artery Systolic Pressu? 26.6 mmHg ?PV Peak Velocity? 78.0 cm/s ?RV Acceleration Time? 0.1 s ?RV Ejection Time? 0.4 s ?RV AcT/ET ? 0.3 ?FINDINGS ?Left Ventricle ?Left ventricle is normal in size.? LV systolic function is ?normal with EF of 55 to 60%.? No regional wall motion ?abnormalities are seen.? Diastolic function is normal. ?Right Ventricle ?Normal in size and function ?Right Atrium ?Normal in size ?Left Atrium ?Normal in size ?Mitral Valve ?Structurally normal mitral valve.? No significant stenosis or ?regurgitation seen. ?Aortic Valve ?Structurally normal aortic valve.? No significant aortic ?stenosis or regurgitation is seen. ?Tricuspid Valve ?Trace tricuspid regurgitation.? Insufficient TR jet to calculate ?RVSP. ?Pulmonic Valve ?Not well-visualized.? Mild pulmonic regurgitation. ?Pericardium ?Normal ?Aorta ?Normal in size ?IVC ?CONCLUSIONS ?LV systolic function is normal with EF of 55 to 60%. ?Diastolic function is normal. ?Trace tricuspid regurgitation.? Mild pulmonic regurgitation. ?No comparison studies are available. Recent Clincial Data Last Vital Signs Temp 98.0 F 07/22/22 20:00 Pulse 63 07/23/22 10:30 Resp 28 H 07/23/22 10:30 BP 166/97 07/23/22 10:30 Pulse Ox 96 07/23/22 10:30 O2 Del Method 07/23/22 02:15 O2 Flow Rate 2 07/20/22 08:00 Vital Signs Pulse Resp BP Pulse Ox O2 Del Method 07/23/22 10:30 63 28 H 166/97 96 07/23/22 10:00 64 19 H 207/132 97 07/23/22 09:30 80 19 H 207/132 94 07/23/22 09:00 94 17 152/80 98 07/23/22 08:30 63 18 152/80 96 07/23/22 08:00 57 L 10 L 140/76 98 07/23/22 07:30 44 L 11 L 140/76 96 07/23/22 07:00 45 L 16 149/84 94 07/23/22 08:00 51 L 14 07/23/22 06:30 51 L 14 94 07/23/22 06:00 55 L 15 129/69 98 07/23/22 05:30 50 L 21 H 129/69 93 07/23/22 05:00 46 L 0 L 151/88 92 07/23/22 05:30 47 L 07/23/22 04:30 47 L 15 151/88 95 07/23/22 04:00 47 L 14 126/62 91 07/23/22 03:30 43 L 15 126/62 95 07/23/22 03:00 46 L 16 153/69 93 07/23/22 02:15 Nasal Cannula 07/23/22 02:30 55 L 16 153/69 97 07/23/22 02:00 46 L 7 L 127/72 97 07/23/22 01:30 48 L 4 L 127/72 95 07/23/22 01:00 47 L 16 162/91 96 07/23/22 00:30 41 L 7 L 162/91 95 07/23/22 00:00 49 L 19 H 146/79 96 Intake & Output/Weight 07/21/22 07/22/22 07/23/22 07/24/22 06:59 06:59 06:59 06:59 Intake Total 1761.716 / 0938.600 3039.310 / 2547.310 1334.115 / 2384.167 1479 / 1100 Output Total 370 / 370 1675 / 1675 1850 / 1850 1600 / 1600 Balance 1391.716 / 1391.716 872.310 / 872.310 -515.885 / -515.885 -500 / -500 Vitals Last Vital Signs Temp 98.0 F 07/22/22 20:00 Pulse 63 07/23/22 10:30 Resp 28 H 07/23/22 10:30 BP 166/97 07/23/22 10:30 Pulse Ox 96 07/23/22 10:30 O2 Del Method 07/23/22 02:15 O2 Flow Rate 2 07/20/22 08:00 TS Medications Medications Alprazolam (Alprazolam 0.5 Mg Tablet) 0.5 mg PO TID PRN PRN Reason: ANXIETY Last Admin: 07/23/22 10:35 Dose: 0.5 mg Atorvastatin Calcium (Atorvastatin 40 Mg Tablet) 40 mg PO DAILY [facility] Last Admin: 07/23/22 08:45 Dose: 40 mg Sodium Chloride (Sodium Chloride 0.9%) 1,000 mls @ 50 mls/hr IV .Q20H [facility] Last Admin: 07/23/22 08:45 Dose: 50 mls/hr Amiodarone HCl 900 mg/Dextrose/ IV Miscellaneous Supplies 518 mls @ 34.533 mls/hr IV CONT [facility] Last Infusion: 07/23/22 00:28 Dose: 0 mg/min, 0 mls/hr Naloxone HCl (Naloxone 0.4 Mg/Ml Sdv) 0.1 mg IVP Q2M PRN PRN Reason: OPIATERV Ondansetron HCl (Ondansetron 2 Mg/Ml Sdv 2 Ml) 4 mg IVP Q8H PRN PRN Reason: vomiting, or N/V if npo Oxycodone HCl (Oxycodone 5 Mg Ir Tab/Cap) 5 mg PO Q6H PRN PRN Reason: SEVERE PAIN Pantoprazole Sodium (Pantoprazole 40 Mg Sdv) 40 mg IVP Q24H [facility] Last Admin: 07/23/22 02:02 Dose: 40 mg Tramadol HCl (Tramadol 50 Mg Tablet) 50 mg PO BID PRN PRN Reason: MODERATE PAIN Last Admin: 07/21/22 21:23 Dose: 50 mg Discontinued Medications Carvedilol (Carvedilol 3.125 Mg Tablet) 3.125 mg PO BID [facility] Last Admin: 07/22/22 11:02 Dose: Not Given Diphenhydramine HCl (Diphenhydramine 50 Mg/Ml Sdv 1ml) Confirm Administered Dose 50 mg .ROUTE .STK-MED ONE Stop: 07/20/22 08:23 Enoxaparin Sodium (Enoxaparin 100 Mg/Ml Syringe) 90 mg SUBCUT ONCE ONE Stop: 07/20/22 01:05 Last Admin: 07/20/22 02:04 Dose: 90 mg Fentanyl (Fentanyl 50 Mcg/Ml Inj 2ml) Confirm Administered Dose 100 mcg .ROUTE .STK-MED ONE Stop: 07/20/22 08:06 Heparin Sodium (Porcine) (Heparin 5,000 Unit/Ml Inj 1 Ml) Confirm Administered Dose 10,000 unit .ROUTE .STK-MED ONE Stop: 07/20/22 08:06 Lidocaine HCl (Lidocaine 1%) Confirm Administered Dose 3 mls @ as directed .ROUTE .STK-MED ONE Stop: 07/20/22 08:06 Amiodarone HCl 150 mg/Dextrose/ IV Miscellaneous Supplies 103 mls @ 412 mls/hr IV ONCE ONE Stop: 07/20/22 16:49 Last Infusion: 07/20/22 18:42 Dose: Infused Magnesium Sulfate (Magnesium Sulfate Premix) 2 gm in 50 mls @ 50 mls/hr IV ONCE ONE Stop: 07/20/22 23:51 Last Infusion: 07/21/22 00:50 Dose: Infused Lidocaine HCl 5 ml/ Potassium (Chloride) 105 mls @ 25 mls/hr IV ONCE ONE Stop: 07/21/22 03:05 Last Infusion: 07/21/22 04:16 Dose: Infused Methylprednisolone Sodium Succinate (Methylprednisolone Sod Succ 125 Mg/2 Ml Inj) Confirm Administered Dose 125 mg .ROUTE .STK-MED ONE Stop: 07/20/22 08:23 Midazolam HCl (Midazolam 1 Mg/Ml Inj 2 Ml) Confirm Administered Dose 2 mg .ROUTE .STK-MED ONE Stop: 07/20/22 08:06 Nitroglycerin (Nitroglycerin 5 Mg/Ml Sdv 10 Ml) Confirm Administered Dose 50 mg .ROUTE .STK-MED ONE Stop: 07/20/22 08:06 Oxycodone/Acetaminophen (Oxycodone-Apap 5-325 Mg Tablet) 1 tab PO ONCE ONE Stop: 07/19/22 19:47 Last Admin: 07/19/22 20:06 Dose: 1 tab Allergies aspirin Allergy (Unknown, Verified 07/14/22 10:45) Unknown codeine Allergy (Unknown, Verified 07/14/22 10:45) Unknown esomeprazole [From Nexium] Allergy (Unknown, Verified 07/14/22 10:45) Unknown hydrocodone Allergy (Unknown, Verified 07/14/22 10:45) Unknown hydromorphone Allergy (Unknown, Verified 07/14/22 10:45) Unknown iodine Allergy (Unknown, Verified 07/14/22 10:45) Unknown latex Allergy (Unknown, Verified 07/14/22 10:45) Unknown morphine Allergy (Unknown, Verified 07/14/22 10:45) Unknown niacin Allergy (Unknown, Verified 07/14/22 10:45) Unknown zolpidem [From Ambien] Allergy (Unknown, Verified 07/14/22 10:45) Unknown oxycodone Allergy (Verified 07/21/22 21:08) ALGY-Rash Allergy (Unknown, Uncoded 07/14/22 10:45) Unknown Home Medications atorvastatin 20 mg tablet 20 mg PO DAILY 07/14/22 [History Confirmed 07/20/22] lisinopril 10 mg tablet 10 mg PO DAILY 07/14/22 [History Confirmed 07/20/22] tramadol 50 mg tablet 50 mg PO BID PRN Pain 07/14/22 [History Confirmed ] Discharge Plan Discharge Patient Disposition: Xfer Other Condition: Stable Prescriptions: No Action atorvastatin 20 mg tablet 20 mg PO DAILY tramadol 50 mg tablet 50 mg PO BID PRN (Reason: Pain) lisinopril 10 mg tablet 10 mg PO DAILY Discharge Orders: Transfer Out of Facility (Order); Ordered 07/21/22 Ordered By: Skylar Hernandez Discharge Diet: Cardiac Patient Instructions: Opioid Safety Transfer Attestations Time Spent in Transfer Care: greater than 30 min Quality Metrics Clinical Quality Measures [ No reported AMI, CVA or VTE this stay] Coding Level of Care Code Acute Physical Therapist for g Fwd Diagnoses Syncope and collapse R55 Ventricular tachycardia I47.2 HTN (hypertension) I10 Hyperlipidemia E78.5 CKD (chronic kidney disease) N18.9
[2022-07-23] MEDS: hyDRALAzine 20 mg/mL INJ 1 mL 5 MG IVP (12:07)
--- NOTE | 2022-07-23 13:39 | PC.SOCIAL ---
IMM update IMM updated with patient. Verbalized an understanding. Copy Pg 2 provided. Initialled, dated, timed, and placed in chart.
--- NOTE | 2022-07-23 14:14 | PC.NURSE ---
report called [facility] and air vac called transfered
== END 2022-07-23 12:30 | disposition short-term general hospital (02) | DRG 287 ==
LOC: ER 22:52 → ICU 07-20 00:51
PROVIDERS: Internal Medicine; Internal Medicine Cardiovascular Disease; Admitting Provider Family Medicine; Emergency Provider Emergency Medicine; Visit Provider Student in an Organized Health Care Education/Training Program
PROC: 4A023N7 Measurement of Cardiac Sampling and Pressure, Left Heart, Percutaneous Approach (ICD-10-PCS; principal; 2022-07-20 08:30)
DX: I47.2 Ventricular tachycardia (principal); I20.0 Unstable angina; E11.22 Type 2 diabetes mellitus with diabetic chronic kidney disease; I12.9 Hypertensive chronic kidney disease with stage 1 through stage 4 chronic kidney disease, or unspecified chronic kidney disease; N18.9 Chronic kidney disease, unspecified; E78.5 Hyperlipidemia, unspecified; C61 Malignant neoplasm of prostate; Z96.659 Presence of unspecified artificial knee joint; Z96.619 Presence of unspecified artificial shoulder joint; Z88.5 Allergy status to narcotic agent; Z88.8 Allergy status to other drugs, medicaments and biological substances; Z91.040 Latex allergy status
CPT/HCPCS: 36415; 71045; 72125; 80048; 80053; 81003; 83605; 83735; 83880; 84100; 84145; 84443; 84484; 85025; 85378; 85610; 87426; 87493; 92523; 92610; 93005; 93306; 93458; 93880; 93970; 94664; 96360; 96365; 96366; 96367; 99152; 99285; C1769; C1887; C1894; C9113; J0282; J0360; J1200; J1644; J1650; J2250; J2930; J3010; J3475; J3480; J3490; J7030; J7060; Q9967

== ENCOUNTER 2022-10-17 07:03 | Outpatient (CLI) | payer MEDICARE, SELFPAY ==
--- NOTE | 2022-10-17 07:16 | ECG_ITS ---
[facility] Test Date: 2022-10-17 Pat Name: Lazaro Moody Department: Room: Gender: Male Development Spec: Josee Smith : 1945 Requested By: King Farmer Order Number: [id number] Madelaine MD: King Farmer M.D. Interpretive Statements NAME OF STUDY: LEXISCAN SESTAMIBI STRESS TEST INDICATION: [Shortness of Breath, ] Procedure: At the baseline, the blood pressure was 133/79 mmHg with a heart rate of 70 bpm. The electrocardiogram showed normal sinus rhythm, normal axis with normal ST and T's. The Lexiscan was infused over a period of 20 seconds. A total of 0.4 mg of Lexiscan was infused. The stress phase was continued for a total of 5 minutes. Heart rate was at the end of stress phase was 71 bpm and a blood pressure of 123/73 mmHg. The EKG at the peak infusion revealed normal sinus rhythm with no significant ST-T wave changes. Sestamibi was injected 20 seconds after the Lexiscan infusion. Blood pressure at the end of recovery phase was 122/70 mmHg with a heart rate of 70 bpm. Conclusion: 1. Normal EKG response to Lexiscan infusion 2. No Lexiscan induced chest pain or cardiac arrhythmia. 3. Normal blood pressure and heart rate response. 4. Sestamibi/sestamibi perfusion scan pending; see separate report. Electronically Signed On 10-30-2022 20:02:58 JOWL TRIMMER by King Farmer M.D. [email or web address]
--- NOTE | 2022-10-17 07:33 | NMCV_ITS ---
NM ian perf SPECT r/s* [id number] Lazaro Moody Age: 77 Gender: M : 1945 Exam Date: 10/17/2022 08:31 Ordering Phys: King Farmer M.D ([email or web address]) Technologist: LILLIAM Andrade Exam Location: [facility] Indications: SHORTNESS OF BREATH STRESS TEST Please see separate stress test report in [facility] for full findings IMAGE PROTOCOL Rest/Stress 1 Lexiscan Day Radiopharmaceutical Dose (mCi) Administration Site Administered by Rest: Tc-99m 10.9 IV LILLIAM Quach Sestamibi Stress:Tc-99m 32.8 IV LILLIAM Quach Sestamibi Rest: 17-Oct-2022 60 Discovery 630 Stress: 17-Oct-2022 30 Discovery 630 0.4mg Lexiscan. Images obtained in supine and prone position. SPECT RESULTS Technical Quality: Excellent Raw Data Analysis: Normal Image Corrections: No attenuation or motion correction applied Summed Stress Score: 1 Summed Rest Score: 4 Summed Difference Score: 0 PERFUSION FINDINGS There is slightly reduced radiotracer uptake in the inferolateral wall at rest that improves with stress. Likely secondary to attenuation artifact. No evidence of ischemia FUNCTIONAL RESULTS (calculated via Gated SPECT) Stress Image LV EF (%): 78 Stress EDV (mL):92 TID: 1.13 Stress ESV (mL):20 FUNCTIONAL FINDINGS: There is normal left ventricular systolic function. IMPRESSIONS 1. Attenuation artifact noted in the inferolateral wall. No evidence of ischemia 2. LV systolic function is normal King Farmer MD (Electronically Signed) Final Date: 17 October 2022 16:54 S
[2022-10-17] MEDS: regadenoson 0.4 Mg/5 ml Syringe IVP (08:58)
[2022-10-17 09:17] VITALS: BP 122/70; PULSE 70
== END 2022-10-17 07:04 | disposition home or self-care (01) ==
PROVIDERS: Visit Provider Internal Medicine
DX: R06.02 Shortness of breath (principal)
CPT/HCPCS: 78452; 93017; A9500; J2785

== ENCOUNTER → 2023-06-09 09:12 | Outpatient (BNVA) | payer MEDICARE, SELFPAY | PROVIDERS: Visit Provider Internal Medicine Cardiovascular Disease | DX: I47.20 Ventricular tachycardia, unspecified (principal); R55 Syncope and collapse; E78.5 Hyperlipidemia, unspecified; Z95.810 Presence of automatic (implantable) cardiac defibrillator; I13.0 Hypertensive heart and chronic kidney disease with heart failure and stage 1 through stage 4 chronic kidney disease, or unspecified chronic kidney disease; N18.9 Chronic kidney disease, unspecified; I50.9 Heart failure, unspecified | CPT/HCPCS: 99214 ==

== ENCOUNTER → 2024-01-12 10:27 | Outpatient (BNVA) | payer MEDICARE, SELFPAY | PROVIDERS: Visit Provider Internal Medicine Cardiovascular Disease | DX: I13.0 Hypertensive heart and chronic kidney disease with heart failure and stage 1 through stage 4 chronic kidney disease, or unspecified chronic kidney disease (principal); N18.9 Chronic kidney disease, unspecified; I50.9 Heart failure, unspecified; E78.5 Hyperlipidemia, unspecified; Z95.810 Presence of automatic (implantable) cardiac defibrillator | CPT/HCPCS: 99213 ==

== ENCOUNTER → 2024-02-14 14:58 | Outpatient (BNVA) | payer MEDICARE, SELFPAY | PROVIDERS: Referring Provider Nurse Practitioner Family; Visit Provider Surgery | DX: K40.90 Unilateral inguinal hernia, without obstruction or gangrene, not specified as recurrent (principal) | CPT/HCPCS: 99204 ==

== ENCOUNTER → 2024-02-15 14:38 | Outpatient (BNVA) | payer MEDICARE, SELFPAY | PROVIDERS: Visit Provider Family Medicine | DX: Z01.818 Encounter for other preprocedural examination (principal) | CPT/HCPCS: 80053; 85025 ==

== ENCOUNTER 2024-02-27 10:39 | Day surgery (SDC) | payer MEDICARE, SELFPAY ==
[2024-02-27] VITALS (21 sets, daily range): BP systolic 105–170; BP diastolic 45–100; PULSE 69–99; RESP 14–28; TEMP 36.1–36.5; O2SAT 96–100; BMI 20.5
[2024-02-27] MEDS: sodium chloride 0.9% 1,000 ML 30 ML IV (11:12)
--- NOTE | 2024-02-27 11:16 | W.PM.OPSUD ---
Surgery/Procedure H&P Update DATE OF PROCEDURE: February 27, 2024 DATE H&P PERFORMED: 02/14/24 H&P UPDATE INFORMATION: I have reviewed H&P completed within last 30 days, I have examined patient prior to procedure and No changes to prior documentation PLANNED PROCEDURE: Operation Date: 02/27/24 12:30 Proposed Procedures p Laparoscopic Inguinal Hernia Repair w/Mesh(Right) - Barrington Gonzalez DO
--- NOTE | 2024-02-27 12:15 | ANE.PACU2 ---
Inpatient post-anesthesia follow up: Airway intact: Yes Vital signs: Temperature 97.7 F Pulse Rate 69 Respiratory Rate 17 Blood Pressure 168/99 Pulse Oximetry 100 Oxygen Delivery Me thod Room Air Oxygen Flow Rate Fraction of Inspir ed Oxygen Hydration adequate: Yes Nausea and vomiting: No Pain level: 1 Mental status: Baseline Additional Comments: Patient was paced during surgery and remained paced in PACU. EKG in pre-op visit at [facility]'s office revealed paced rhythm as well. Consulted with Dr. Farmer regarding if the magnet may have affected the programming, but given pre-op EKG suspicion is was already being paced. Told patient to follow up with cardiology given that he didn't know he was being paced
--- NOTE | 2024-02-27 13:00 | ANES.PREANE2 ---
Pre-Anesthetic Assessment Height/Weight: Height 1.88 m Weight 72.575 kg Temp Pulse Resp BP Pulse Ox O2 Del Method 97.7 F 70 16 143/87 99 Room Air 02/27/24 10:57 02/27/24 10:57 02/27/24 10:57 02/27/24 10:57 02/27/24 10:57 02/27/24 10:57 Operation Date: 02/27/24 12:30 Proposed Procedures p Laparoscopic Inguinal Hernia Repair w/Mesh(Right) - Barrington Gonzalez DO Familial anesthetic complications: None Was Beta Rangel taken within 24 hours: N/A Was Clonidine taken within 24 hours: N/A Last intake: Intake Last Liquid Date 02/26/24 Last Liquid Time 21:30 Last Solid Date 02/26/24 Last Solid Time 21:30 Social No alcohol and No tobacco Exam alert, oriented x 3, clear to auscultation bilaterally and regular rate & rhythm Airway Mallampati: Class I Dentition: other (no teeth) CV/HEM Arrythmia, Congestive Heart Failure and Hypertension clear cath SVT and v tach (nonsustained) ICD in place Chronic Renal Insufficiency Anesthetic Plan ASA status: 4 Anesthesia: General Risk of > 500 ml blood loss (7ml/kg in children): No Medications/Allergies Home Medications Medication Instructions Recorded Confirmed Last Taken Type atorvastatin 20 mg tablet 20 mg PO DAILY 07/14/22 02/27/24 02/26/24 History tramadol 50 mg tablet 50 mg PO BID PRN Pain 07/14/22 02/27/24 02/26/24 History amiodarone 200 mg tablet 100 mg PO DAILY 06/09/23 02/27/24 02/26/24 History aspirin 81 mg tablet,delayed 81 mg PO DAILY 06/09/23 02/27/24 02/20/24 History release donepezil 10 mg tablet 10 mg PO DAILY 06/09/23 02/27/24 02/26/24 History lisinopril 10 mg tablet 5 mg PO DAILY 06/09/23 02/27/24 02/26/24 History metoprolol tartrate 25 mg tablet 25 mg PO BID 06/09/23 02/27/24 02/27/24 History Allergies Allergy/AdvReac Type Severity Reaction Status Date / Time aspirin Allergy Unknown Unknown Verified 02/27/24 10:54 codeine Allergy Unknown Unknown Verified 02/27/24 10:54 esomeprazole [From Nexium] Allergy Unknown Unknown Verified 02/27/24 10:54 hydrocodone Allergy Unknown Unknown Verified 02/27/24 10:54 hydromorphone Allergy Unknown Unknown Verified 02/27/24 10:54 iodine Allergy Unknown Unknown Verified 02/27/24 10:54 latex Allergy Unknown Unknown Verified 02/27/24 10:54 morphine Allergy Unknown Unknown Verified 02/27/24 10:54 niacin Allergy Unknown Unknown Verified 02/27/24 10:54 zolpidem [From Ambien] Allergy Unknown Unknown Verified 02/27/24 10:54 oxycodone Allergy ALGY-Rash Verified 02/27/24 10:54 [id number] Allergy Unknown Unknown Uncoded 02/27/24 10:54 Current Medications Generic Name Dose Route Start Last Admin Trade Name Freq PRN Reason Stop Dose Admin Sodium Chloride 1,000 mls @ 30 mls/hr 02/27/24 10:45 02/27/24 11:12 Sodium Chloride 0.9% IV 02/28/24 10:44 30 mls/hr .Q24H ANDREW Administration PFSH Anesthesia Medical History ICD (implantable cardioverter-defibrillator) in place Coronary artery disease CKD (chronic kidney disease) Hyperlipidemia HTN (hypertension) CHF (congestive heart failure) Prostate cancer Malignant neoplasm of prostate Surgical History Hx of cholecystectomy History of knee replacement Hx of shoulder replacement Social History Smoking and tobacco/nicotine status: never used tobacco/nicotine Data Anesthesia Cardiac Studies: Echocardiogram 07/19/22 Sestamibi Stress Test (Cardiology) 10/17/22 Cardiac Event Monitor 07/14/22
[2024-02-27] MEDS: ceFAZolin 2,000 MG in sodium chloride 0.9% (plus) 50 ML 100 MG IV (13:06)
[2024-02-27] MEDS: tranexamic acid 1,000 mg/10mL SDV 1000 MG IV (13:37)
[2024-02-27] MEDS: lidocaine-epi 2% PF 1:200,000 20 mL SDV XX (13:38)
--- NOTE | 2024-02-27 14:03 | PM.OP ---
Operative Report Date of procedure: February 27, 2024 Pre-op diagnosis: Right inguinal hernia Post-op diagnosis: Indirect right inguinal hernia Procedure done: Laparoscopic (TEPP) repair of right inguinal hernia with mesh Implants: Extra-large right 3D max Bard mesh Specimens removed/disposition: None Surgeon: Barrington Gonzalez DO Anesthesia: General and Local Estimated blood loss (mL): 10 Complications: None apparent Brief History: This very pleasant 78-year-old gentleman who presented to my office with a painful right inguinal hernia. Laparoscopic repair with mesh was indicated. The risk and benefits were explained and documented. Procedure: Patient was wheeled into the operative room and placed on the OR table in a supine position. Abdomen was inspected prepped and draped in usual sterile fashion. Time-out was performed and all present were in agreement. A 15 blade scalpel was used to make 1.2 centimeter incision infraumbilically. Combination of sharp and blunt dissection was performed down to the anterior rectus sheath which was opened sharply. The dissecting balloon was then inserted into the space of Retzius and blown up. We put the camera into the port and identified that we were in the correct space. I then placed 2 5 millimeter trocars suprapubically in the midline. I then used endokitners to bluntly dissect in the space of Retzius out laterally. There was some bleeding from the rectus muscle immediately upon entry. He was given 1 g of TXA immediately and then a second gram TXA 1 hour later. Hemostasis was noted by the end of the procedure. An indirect inguinal hernia was identified on the right. Blunt dissection was performed to dissect down the hernia sac until the vas deferens dove medially. An extra-large 3D max Bard right inguinal mesh was then placed into the space of Retzius. The mesh was unrolled and tacked once medially at the pubic bone. The mesh laid out nicely over the spermatic cord. Photos were taken of the mesh laid out and the hernia sac laid underneath the mesh. I watched the hernia sac remained in place as insufflation was removed. Incisions were closed with 4-0 Monocryl in a subcuticular interrupted fashion. Skin glue was applied. Patient tolerated the procedure well.
--- NOTE | 2024-02-27 14:20 | ECG_ITS ---
[facility] Test Date: 2024-02-27 Pat Name: Lazaro Moody Department: Room: Gender: Male Director Of Physical Security: : 1945 Requested By: Romy Alberto Order Number: [id number] Madelaine MD: King Farmer M.D. Measurements Intervals [place] Rate: 69 P: 156 GA: 197 QRS: -30 QRSD: 112 T: 53 QT: 472 QTc: 509 Interpretive Statements ELECTRONIC ATRIAL PACEMAKER POSSIBLE LATERAL MYOCARDIAL INFARCTION , OF INDETERMINATE AGE [30 ms Q WAVE IN I/aVL/V5/V6] Compared to ECG 07/22/2022 10:32:15 Myocardial infarct finding now present Sinus bradycardia no longer present Prolonged QT interval no longer present Electronically Signed On 02-27-2024 15:45:56 CDT by King Farmer M.D. [id number]
[2024-02-27] MEDS: fentaNYL 50 mcg/mL INJ 2mL IVP ×2 (14:46→15:15)
[2024-02-27] MEDS: ondansetron 2 mg/ML SDV 2 mL 4 MG IVP (15:43)
[2024-02-27] MEDS: HYDROcodone-acetaminophen 7.5-325 mg Tablet 1 TAB PO (15:56)
== END 2024-02-27 16:15 | disposition home or self-care (01) ==
PROVIDERS: Visit Provider Surgery
PROC: (CPT 49650; principal; 2024-02-27 12:20)
DX: K40.90 Unilateral inguinal hernia, without obstruction or gangrene, not specified as recurrent (principal); I13.0 Hypertensive heart and chronic kidney disease with heart failure and stage 1 through stage 4 chronic kidney disease, or unspecified chronic kidney disease; N18.9 Chronic kidney disease, unspecified; I50.9 Heart failure, unspecified; Z85.46 Personal history of malignant neoplasm of prostate; Z79.82 Long term (current) use of aspirin
CPT/HCPCS: 49650; 51702; 93005; C1781; J0690; J1100; J2405; J2704; J3010; J3490; J7030

== ENCOUNTER 2024-03-11 11:43 | Inpatient (IN) | payer MEDICARE, SELFPAY ==
[2024-03-11] VITALS (16 sets, daily range): BP systolic 109–150; BP diastolic 64–92; PULSE 67–93; RESP 14–19; TEMP 36.4; O2SAT 97–100
--- NOTE | 2024-03-11 11:46 | ECG_ITS ---
Test Date: 2024-03-11 Pat Name: Lazaro Moody Department: Room: Gender: Male Chief Contract Officer: : 1945 Requested By: Thomas Colon Order Number: [id number] Madelaine MD: Trace Malone M.D. Measurements Intervals [place] Rate: 70 P: 138 LA: 169 QRS: 76 QRSD: 106 T: 85 QT: 418 QTc: 451 Interpretive Statements ELECTRONIC ATRIAL PACEMAKER ABNORMAL RHYTHM ECG Compared to ECG 02/27/2024 14:26:37 Myocardial infarct finding no longer present Electronically Signed On 03-11-2024 19:25:57 CDT by Trace Malone M.D. [id number]
--- NOTE | 2024-03-11 11:56 | XR_ITS ---
WS: [id number] Exam: XR chest 1V portable [id number] Date/Time of Exam: 03/11/2024 11:56 AM Reason For Exam: dyspnea/cough Comparison 07/19/2022. The lungs are clear and fully expanded. Normal cardiomediastinal silhouette. Prominent hiatal hernia. A cardiac pacer superimposes the LEFT chest. Regional bony elements are intact. IMPRESSION: 1. No acute cardiopulmonary finding. 2. Prominent hiatal hernia.
--- NOTE | 2024-03-11 11:57 | ED_ITS ---
HPI - Dizziness 2 General: Chief Complaint: Dizziness Stated Complaint: Rapid response Time Seen by Provider: 03/11/24 11:48 Source: patient Mode of arrival: wheelchair History of Present Illness: HPI Narrative: 78-year-old male presents emergency room via wheelchair. Patient was at the surgery clinic doing follow-up he stood up to have a Dr. Gonzalez evaluated his incisions got lightheaded and dizzy and nearly fell. Patient has a history of cardiac arrhythmias he has a defibrillator pacemaker in place during surgery 2 weeks ago they suspended the function to baseline functions with a magnet postoperatively there was a malfunction and had to be reprogrammed and seem to have been working good since then he has not had any cardioversions that he is aware. No chest pain. MD elicited complaint: dizziness Onset (ago): minute(s) Timing: sudden onset Exacerbating factors: nothing Relieving factors: nothing Associated symptoms: Reports chest pain; Denies change in hearing, chills, cough, diaphoresis, ear discharge, ear pressure, fevers/chills, headache(s), malaise, nausea, nasal congestion, palpitations, rash, short of breath, syncope, tinnitus, vomiting or weakness Review of Systems 2 Const: Denies: chills, malaise or diaphoresis ENMT: Denies: ear discharge, change in hearing, tinnitus or nasal congestion Card: Reports: chest pain; Denies: palpitations, edema, swelling of feet/ankles or syncope Resp: Denies: dyspnea GI: Denies: nausea or vomiting : Denies: dysuria, urinary frequency or urinary urgency Musc: Denies: neck pain or back pain Skin/Breast: Denies: rash Neuro: Denies: headache(s) PFSH ED 2 PFSH: Medical History ICD (implantable cardioverter-defibrillator) in place Coronary artery disease CKD (chronic kidney disease) Hyperlipidemia HTN (hypertension) CHF (congestive heart failure) Prostate cancer Malignant neoplasm of prostate Surgical History Hx of cholecystectomy History of knee replacement Hx of shoulder replacement Social History Smoking and tobacco/nicotine status: never used tobacco/nicotine Physical Exam 2 Const: COMMON NORMALS: no acute distress GENERAL APPEARANCE: cooperative and comfortable ORIENTATION/CONSCIOUSNESS: Yes awake, Yes oriented to person, Yes oriented to place and Yes oriented to time HENMT: COMMON NORMALS: normocephalic, atraumatic and hearing grossly normal bilaterally HEAD & SCALP: normocephalic and atraumatic Resp: COMMON NORMALS: normal respiratory effort, No retractions, No use of accessory muscles and clear to auscultation bilaterally AUSCULTATION: clear to auscultation bilaterally Cardio: COMMON NORMALS: regular rate, regular rhythm and No murmurs present (Cardio) RATE: regular rate RHYTHM: regular rhythm GI: COMMON NORMALS: Soft to palpation and No hepatosplenomegaly present A USCULTATION: Yes normoactive bowel sounds PALPATION: Yes Soft to palpation, No Tenderness to palpation present (GI), No Guarding due to palpation present (GI) and Yes No hepatosplenomegaly present Extremity: COMMON NORMALS: normal to inspection, capillary refill normal, no clubbing, cyanosis or edema, no calf tenderness and no pedal edema Neuro: SENSORIUM/ORIENTATION: Yes oriented to person, Yes oriented to place and Yes oriented to time Skin: COMMON NORMALS: no rashes or lesions noted GENERAL SKIN EXAM: no rashes or lesions noted Course 2 Vital Signs: Vital signs: Vital Signs Temperature 97.6 F 03/11/24 11:47 Pulse Rate 70 03/11/24 16:00 Respiratory Rate 17 03/11/24 16:00 Blood Pressure 119/77 03/11/24 16:00 Pulse Oximetry 99 03/11/24 16:00 Oxygen Delivery Me thod Room Air 03/11/24 11:47 MDM - Dizziness Medical Decision Making Patient initially had a near syncopal episode Dr. Gonzalez's office and he arrived here we gave him out 1500 mL normal saline he has normal orthostatics following ambulating per trial before discharge began having chest pain cardiac enzymes have been normal EKG did not show any acute changes. Given his known history coronary disease decided to observe him overnight discussed with hospitalist and with Dr. Farmer, who will see him later today. Medical Records I reviewed the patient's medical records. Lab Data I reviewed the patient's lab results. 03/11/24 12:24 03/11/24 12:24 Laboratory Results WBC 7.43 10^3/uL (3.29-11.43) 03/11/24 12: RBC 4.09 10^6/uL (3.85-5.65) 03/11/24 12:24 Hgb 12.50 g/dL (11.27-16.99) 03/11/24 12:24 Hct 38.1 % (37-53) 03/11/24 12:24 MCV 93.2 fl (82-101) 03/11/24 12:24 MCH 30.6 pg (27-33) 03/11/24 12:24 MCHC 32.8 g/dL (30-55) 03/11/24 12:24 RDW 14.5 % (12.1-15.1) 03/11/24: Plt Count 166 10^3/cmm (157-399) 03/11/24 12: MPV 11.3 fL (7.4-10.4) H 03/11/24 12: Neut % (Auto) 56.1 % 03/11/24 12: Lymph % (Auto) 21.5 % 03/11/24 12:24 [place] % (Auto) 10.0 % 03/11/24 12:24 Eos % (Auto) 10.8 % 03/11/24 12:24 Baso % (Auto) 1.3 % 03/11/24 12: Neut # (Auto) 4.17 10^3/uL (1.8-7.7) 03/11/24 12: Lymph # (Auto) 1.6 10^3/uL (0.8-4.8) 03/11/24 12: [place] # (Auto) 0.7 10^3/uL (0.2-0.9) 03/11/24 12:24 Eos # (Auto) 0.8 10^3/uL (0.0-0.8) 03/11/24 12: Baso # (Auto) 0.1 10^3/uL (0.0-0.1) 03/11/24 12:24 Nucleated RBC % (auto) 0 % 03/11/24 12:24 Nucleated RBCs # 0.0 /100WBC 03/11/24 12:24 Sodium 139 mmol/L (136-145) 03/11/24 12:24 Potassium 4.2 mmol/L (3.5-5.1) 03/11/24 12:24 Chloride 103 mmol/L (98-107) 03/11/24 12:24 Carbon Dioxide 26 mmol/L (22-29) 03/11/24 12:24 Anion Gap 14.2 (5-19) 03/11/24 12:24 BUN 20 mg/dL (8-23) 03/11/24 12:24 Creatinine 1.3 mg/dL (0.7-1.2) H 03/11/24 12:24 GFR Calculation Not Reportable 03/11/24 12:24 Glucose 85 mg/dL (65-115) 03/11/24 12:24 Calculated Osmolality 290 mOsm/kg (285-295) 03/11/24 12:24 Calcium 8.9 mg/dL (8.5-10.5) 03/11/24 12:24 Total Bilirubin 0.7 mg/dL (0.15-1.2) 03/11/24 12:24 AST 21 U/L (0-40) 03/11/24 12:24 ALT 11 U/L (0-41) 03/11/24 12:24 Alkaline Phosphatase 84 U/L (40-130) 03/11/24 12:24 Troponin T Baseline 19 ng/L (0-15) H 03/11/24 12:24 Troponin T 120 Minute 20.02 ng/L (0-15) H 03/11/24 15:05 Delta Troponin T 1.02 ABS# (0-10) 03/11/24 15:05 Total Protein 6.6 g/dL (6.6-8.7) 03/11/24 12:24 Albumin 4.0 g/dL (3.5-5.2) 03/11/24 12:24 Globulin 2.6 g/dL (1.3-4.6) 03/11/24 12:24 Urine Color Yellow (Yellow) 03/11/24 14:42 Urine Appearance Clear (CLEAR) 03/11/24 14:42 Urine pH 5 (5-7) 03/11/24 14:42 Ur Specific [place] 1.010 (1.005-1.030) 03/11/24 14:42 Urine Protein Neg (Negative) 03/11/24 14:42 Urine Glucose (UA) Norm (Normal) 03/11/24 14:42 Urine Ketones Negative (Negative) 03/11/24 14:42 Urine Blood Neg (Negative) 03/11/24 14:42 Urine Nitrate Negative (Negative) 03/11/24 14:42 Urine Bilirubin Neg (Negative) 03/11/24 14:42 Urine Urobilinogen Neg mg/dL (Negative) 03/11/24 14:42 Ur Leukocyte Esterase Negative (Negative) 03/11/24 14:42 All radiology interpretation(s) finalized by discharge Discharge Plan Discharge Patient Disposition: Home Admit Provider: Aminah Rangel Clinical Impression: Pre-syncope Condition: Stable Prescriptions: No Action donepezil 10 mg tablet 10 mg PO DAILY aspirin 81 mg tablet,delayed release (DR/EC) 81 mg PO BID metoprolol tartrate 25 mg tablet 25 mg PO BID amiodarone 200 mg tablet 100 mg PO DAILY tramadol 50 mg tablet 50 mg PO BID PRN (Reason: Pain) Hold Instructions: Resume on 03/03/24. lisinopril 10 mg tablet 5 mg PO DAILY hydrocodone-acetaminophen 7.5-325 mg tablet 1 tab PO Q6H PRN (Reason: pain) Qty: 20 0RF docusate sodium [Colace] 100 mg capsule 100 mg PO BID Qty: 20 0RF polyethylene glycol 3350 [Miralax] 17 gram/dose powder 17 g PO DAILY Qty: 119 0RF trazodone 50 mg tablet 50 mg PO BEDTIME atorvastatin 10 mg tablet 10 mg PO DAILY FeroSul 325 mg (65 mg iron) tablet 325 mg PO .3XWEEKLY Coding Level of Care Code ED Grinder Machine Knife Setter for Christine Montgomery
[2024-03-11 12:30] LABS: Basophils # 0.1 10^3/uL (0.0-0.1); Basophils % 1.3 %; Eosinophils # 0.8 10^3/uL (0.0-0.8); Eosinophils % 10.8 %; Hematocrit 38.1 % (37-53); Lymphocytes # 1.6 10^3/uL (0.8-4.8); Lymphocytes % 21.5 %; Mean Corpuscular HGB Conc 32.8 g/dL (30-55); Mean Corpuscular Hemoglobin 30.6 pg (27-33); Mean Corpuscular Volume 93.2 fl (82-101); Mean Platelet Volume 11.3 fL (7.4-10.4); Monocytes # 0.7 10^3/uL (0.2-0.9); Neutrophils # 4.17 10^3/uL (1.8-7.7); Neutrophils % 56.1 %; Nucleated Red Blood Cells % 0 %; Platelet Count 166 10^3/cmm (157-399); Red Blood Count 4.09 10^6/uL (3.85-5.65); Red Cell Distribution Width 14.5 % (12.1-15.1); White Blood Count 7.43 10^3/uL (3.29-11.43)
[2024-03-11] MEDS: sodium chloride 0.9% 500 ML 999 ML IV (12:38)
[2024-03-11 12:47] LABS: Alanine Aminotransferase 11 U/L (0-41); Alkaline Phosphatase 84 U/L (40-130); Anion Gap 14.2 (5-19); Aspartate Amino Transferase 21 U/L (0-40); Blood Urea Nitrogen 20 mg/dL (8-23); Calcium 8.9 mg/dL (8.5-10.5); Carbon Dioxide 26 mmol/L (22-29); Chloride 103 mmol/L (98-107); Globulin 2.6 g/dL (1.3-4.6); Glucose 85 mg/dL (65-115); Osmolality Calculated 290 mOsm/kg (285-295); Potassium 4.2 mmol/L (3.5-5.1); Sodium 139 mmol/L (136-145); Total Bilirubin 0.7 mg/dL (0.15-1.2); Total Protein 6.6 g/dL (6.6-8.7)
--- NOTE | 2024-03-11 14:50 | ECG_ITS ---
[facility] Test Date: 2024-03-11 Pat Name: Lazaro Moody Department: Room: Gender: Male Electronic Assembler: : 1945 Requested By: Thomas Colon Order Number: [id number] Madelaine MD: Trace Malone M.D. Measurements Intervals [place] Rate: 69 P: 163 MI: 187 QRS: 57 QRSD: 102 T: 77 QT: 438 QTc: 472 Interpretive Statements ELECTRONIC ATRIAL PACEMAKER ABNORMAL RHYTHM ECG Compared to ECG 03/11/2024 11:46:03 No significant changes Electronically Signed On 03-11-2024 19:28:32 CDT by Trace Malone M.D. [id number]
[2024-03-11 15:12] LABS: Troponin(5th) Baseline 19 ng/L (0-15)
[2024-03-11 15:26] LABS: Add Urine Microscopic? NO; Charge for UA Resulting for Rev
[2024-03-11 15:31] LABS: Bilirubin Urine Neg (Negative); Blood Urine Neg (Negative); Glucose Urine UA Norm (Normal); Ketones Urine Negative (Negative); Leukocyte Esterase Urine Negative (Negative); Nitrate Urine Negative (Negative); Protein Urine Neg (Negative); Urine Appearance Clear (CLEAR); Urine Color Yellow (Yellow); Urobilinogen Urine Neg (Negative); pH Urine 5 (5-7)
[2024-03-11 15:46] LABS: Troponin 5 2HR 20.02 ng/L (0-15); Troponin 5 2HR Delta 1.02 ABS# (0-10)
--- NOTE | 2024-03-11 16:32 | P.CONIM_ITS ---
Providers/Reason For Consult 2 Consulting Physician/Specialty*: King Farmer MD/ Cardiology Reason for Consult*: Chest pain/ pre syncope Requesting Physician: Dr Fontenot Attending Physician: Aminah Rangel MD Primary Care Provider: Cesar Martin APRN History of Present Illness History of Present Illness Lazaor Moody is a 78 year old male with past medical history of nonobstructive CAD, ventricular tachycardia for which ICD was placed, had recent inguinal hernia repair. Today he was at surgery office for routine postop follow-up and as patient was standing up got presyncopal. Rapid response was called and patient was brought to the emergency room. EKG shows paced rhythm. He says when he gets up and tries to walk he gets a chest discomfort. Troponins have not trended up significantly. No ischemic changes on EKG. Review of Systems 2 General: Reports: 10 or more systems reviewed and unremarkable except in HPI and below Medications/Allergies Home Medications Medication Instructions Recorded Confirmed Last Taken Type tramadol 50 mg tablet 50 mg PO BID PRN Pain 07/14/22 03/11/24 02/26/24 History amiodarone 200 mg tablet 100 mg PO DAILY 06/09/23 03/11/24 03/11/24 History aspirin 81 mg tablet,delayed 81 mg PO BID 06/09/23 03/11/24 03/11/24 History release donepezil 10 mg tablet 10 mg PO DAILY 06/09/23 03/11/24 03/11/24 History lisinopril 10 mg tablet 5 mg PO DAILY 06/09/23 03/11/24 03/11/24 History metoprolol tartrate 25 mg tablet 25 mg PO BID 06/09/23 03/11/24 03/11/24 History docusate sodium 100 mg capsule 100 mg PO BID #20 caps 02/27/24 03/11/24 03/11/24 Rx (Colace) hydrocodone 7.5 mg-acetaminophen 1 tab PO Q6H PRN pain #20 tabs 02/27/24 03/11/24 Unknown Rx 325 mg tablet polyethylene glycol 3350 17 17 g PO DAILY #119 grams 02/27/24 03/11/24 03/11/24 Rx gram/dose oral powder (Miralax) atorvastatin 10 mg tablet 10 mg PO DAILY 03/11/24 03/11/2424 History ferrous sulfate 325 mg (65 mg 325 mg PO .3XWEEKLY 03/11/24 03/11/24 Unknown History iron) tablet (FeroSul) trazodone 50 mg tablet 50 mg PO BEDTIME 03/11/24 03/11/24 03/10/24 History Allergies Allergy/AdvReac Type Severity Reaction Status Date / Time aspirin Allergy Unknown Unknown Verified 02/27/24 10:54 codeine Allergy Unknown Unknown Verified 02/27/24 10:54 esomeprazole [From Nexium] Allergy Unknown Unknown Verified 02/27/24 10:54 hydrocodone Allergy Unknown Unknown Verified 02/27/24 10:54 hydromorphone Allergy Unknown Unknown Verified 02/27/24 10:54 iodine Allergy Unknown Unknown Verified 02/27/24 10:54 latex Allergy Unknown Unknown Verified 02/27/24 10:54 morphine Allergy Unknown Unknown Verified 02/27/24 10:54 niacin Allergy Unknown Unknown Verified 02/27/24 10:54 zolpidem [From Ambien] Allergy Unknown Unknown Verified 02/27/24 10:54 oxycodone Allergy ALGY-Rash Verified 02/27/24 10:54 [id number] Allergy Unknown Unknown Uncoded 02/27/24 10:54 PFSH Acute 2 PFSH: Medical History ICD (implantable cardioverter-defibrillator) in place Coronary artery disease CKD (chronic kidney disease) Hyperlipidemia HTN (hypertension) CHF (congestive heart failure) Prostate cancer Malignant neoplasm of prostate Surgical History Hx of cholecystectomy History of knee replacement Hx of shoulder replacement Social History Smoking and tobacco/nicotine status: never used tobacco/nicotine Vitals/I&O/Wt Last Vital Signs Temp 97.6 F 03/11/24 11:47 Pulse 70 03/11/24 16:00 Resp 17 03/11/24 16:00 BP 119/77 03/11/24 16:00 Pulse Ox 99 03/11/24 16:00 O2 Del Method Room Air 03/11/24 11:47 0403/11/24 03/11/24 06:59 14:59 22:59 Intake Total 500 / 500 Balance 500 / 500 Physical Exam 2 Narrative: GENERAL: Patient is alert, awake and oriented x3. [] NECK: No jugular vein distension. [] HEENT: No cyanosis. No icterus. No pallor. [] HEART: Regular S1 and S2. No murmur, rub or gallop. [] LUNGS: Clear to auscultate bilaterally. [] CENTRAL NERVOUS SYSTEM: Grossly nonfocal. [] EXTREMITIES: Lower extremities with 1+ edema bilaterally. Data 03/11/24 12:24 03/12/24 03:15 A&P Assessment and plan (1) Chest pain: (2) ICD (implantable cardioverter-defibrillator) in place: (3) Hyperlipidemia: (4) HTN (hypertension): Plan Patient's history he has not been feeling well since the surgery. His ICD was reprogrammed afterwards. We will interrogate ICD. Chest pain has both typical and atypical features. His coronary angiogram did not reveal significant CAD 2 years ago. We will obtain stress test to rule out ischemia. Order echocardiogram. Thank you for involving us with care of this patient. We will continue to follow. Please call with questions. Consult Attestations 2 Medical Necessity Statement: Care expected to cross 2 midnights. Coding Level of Care Code Acute Code for g Fwd Diagnoses Chest pain R07.9 ICD (implantable cardioverter-defibrillator) in place Z95.810 Hyperlipidemia E78.5 HTN (hypertension) I10
[2024-03-11] MEDS: nitroglycerin 1 gm/inch oint Pkt 0.5 INCH TOPICAL (16:36)
--- NOTE | 2024-03-11 16:45 | P.HP_ITS ---
Providers/Chief Complaint 2 Admitting Physician: Aminah Rangel MD Primary Care Provider: Cesar Martin APRN Chief Complaint: Rapid response History of Present Illness Lazaro Moody is a 78 year old male with h/o ventricular tachycardia s/p ICD (implantable cardioverter-defibrillator) in place, Coronary artery disease, CKD (chronic kidney disease), Hyperlipidemia, HTN (hypertension),CHF , prostate cancer was in the surgery outpatient clinic today for post op follow up of right inguinal hernia. He reports he stood up, got lightheaded, dizzy and was almost going to pass out. HAND STRIPPER was called for presyncope and he was admitted to ER. He states he has been on puree and liquid diet for a while for achalasia, but has been drinking well. Also this morning he noted to have a BP of 90/70. He already had taken his morning medications. He reports having light breakfast before going for surgery clinic. He has an ICD placed for ventricular tachycardia. He had a malfunction postoperatively and was reprogrammed. It has been working well since then as per the patient and his . Denies any history of fever cough cold nausea vomiting and diarrhea. No history of chest pain palpitations shortness of breath. Review of Systems 2 General: Reports: 10 or more systems reviewed and unremarkable except in HPI and below Medications/Allergies Home Medications Medication Instructions Recorded Confirmed Last Taken Type tramadol 50 mg tablet 50 mg PO BID PRN Pain 07/14/22 03/11/24 02/26/24 History amiodarone 200 mg tablet 100 mg PO DAILY 06/09/23 03/11/24 03/11/24 History aspirin 81 mg tablet,delayed 81 mg PO BID 06/09/23 03/11/24 03/11/24 History release donepezil 10 mg tablet 10 mg PO DAILY 06/09/23 03/11/24 03/11/24 History lisinopril 10 mg tablet 5 mg PO DAILY 06/09/23 03/11/24 03/11/24 History metoprolol tartrate 25 mg tablet 25 mg PO BID 06/09/23 03/11/24 03/11/24 History docusate sodium 100 mg capsule 100 mg PO BID #20 caps 02/27/24 03/11/24 03/11/24 Rx (Colace) hydrocodone 7.5 mg-acetaminophen 1 tab PO Q6H PRN pain #20 tabs 02/27/24 03/11/24 Unknown Rx 325 mg tablet polyethylene glycol 3350 17 17 g PO DAILY #119 grams 02/27/24 03/11/24 03/11/24 Rx gram/dose oral powder (Miralax) atorvastatin 10 mg tablet 10 mg PO DAILY 03/11/24 03/11/24 03/11/24 History ferrous sulfate 325 mg (65 mg 325 mg PO .3XWEEKLY 03/11/24 03/11/24 Unknown History iron) tablet (FeroSul) trazodone 50 mg tablet 50 mg PO BEDTIME 03/11/24 03/11/24 03/10/24 History Allergies Allergy/AdvReac Type Severity Reaction Status Date / Time aspirin Allergy Unknown Unknown Verified 02/27/24 10:54 codeine Allergy Unknown Unknown Verified 02/27/24 10:54 esomeprazole [From Nexium] Allergy Unknown Unknown Verified 02/27/24 10:54 hydrocodone Allergy Unknown Unknown Verified 02/27/24 10:54 hydromorphone Allergy Unknown Unknown Verified 02/27/24 10:54 iodine Allergy Unknown Unknown Verified 02/27/24 10:54 latex Allergy Unknown Unknown Verified 02/27/24 10:54 morphine Allergy Unknown Unknown Verified 02/27/24 10:54 niacin Allergy Unknown Unknown Verified 02/27/24 10:54 zolpidem [From Ambien] Allergy Unknown Unknown Verified 02/27/24 10:54 oxycodone Allergy ALGY-Rash Verified 02/27/24 10:54 [id number] Allergy Unknown Unknown Uncoded 02/27/24 10:54 PFSH Acute 2 PFSH: Medical History ICD (implantable cardioverter-defibrillator) in place Coronary artery disease CKD (chronic kidney disease) Hyperlipidemia HTN (hypertension) CHF (congestive heart failure) Prostate cancer Malignant neoplasm of prostate Surgical History Hx of cholecystectomy History of knee replacement Hx of shoulder replacement Social History Smoking and tobacco/nicotine status: never used tobacco/nicotine Vitals/I&O/Wt Last Vital Signs Temp 97.6 F 03/11/24 11:47 Pulse 70 03/11/24 16:00 Resp 17 03/11/24 16:00 BP 119/77 03/11/24 16:00 Pulse Ox 99 03/11/24 16:00 O2 Del Method Room Air 03/11/24 11:47 03/11/24 03/11/24 03/11/24 06:59 14:59 22:59 Intake Total 500 / 500 Balance 500 / 500 Physical Exam 2 Narrative: General: No acute distress, AO x3 HEENT: PERRLA, pupils bilaterally equal and reactive, pallors not present Chest: Normal vesicular breath sounds, no added sounds, equal good air entry bilaterally CVS: S1-S2 regular, no murmurs, ICD in place Abdomen: Soft, nontender, no organomegaly, bowel sounds present Neuro: No focal deficits, no facial deformity, AO x3, power 5/5 in all limbs Extremities: no clubbing edema or cyanosis Data 03/11/24 12:24 03/11/24 12:24 A&P Assessment and plan (1) Pre-syncope: (2) Hypotension: (3) ICD (implantable cardioverter-defibrillator) in place: (4) CKD (chronic kidney disease): (5) NSVT (nonsustained ventricular tachycardia): (6) HTN (hypertension): (7) Hyperlipidemia: (8) CHF (congestive heart failure): (9) Status post right inguinal hernia repair: 78 year old male with h/o ICD (implantable cardioverter-defibrillator) in place Coronary artery disease, CKD (chronic kidney disease), Hyperlipidemia, HTN (hypertension),CHF , prostate cancer was in the surgery outpatient clinic today for post op follow up of right inguinal hernia and and felt lightheaded dizzy and near syncope. 1. Presyncope- Likely secondary to orthostatic hypotension and medication induced. Admit to CSU for continuous telemonitoring Given extensive cardiac history and ICD, he needs further workup to rule out cardiac cause. Follow-up cardiology, plan for stress test in a.m. N.p.o. past midnight. ICD was interrogated. Will hold lisinopril 20 mg daily for now. Will continue amiodarone 200 mg daily, metoprolol 12.5 mg twice a day Atorvastatin 40 mg daily Aspirin 81 mg twice a day. check ECHO 2. Hypotension- Will monitor for now Hold home dose of lisinopril Will give IV fluids normal saline at 60 cc per hour 3. Resume home medications 4. DVT prophylaxis with subcutaneous Lovenox 30 mg daily 5. GI prophylaxis with IV Pepcid 20 mg twice a day 6. CODE STATUS discussed with patient and his , he is full code for now Plan Date of Service: 10/17/22 Procedure(s): Sestamibi Stress Test Request Conclusion: 1.? Normal EKG response to Lexiscan infusion 2.? No Lexiscan induced chest pain or cardiac arrhythmia. 3.? Normal blood pressure and heart rate response. 4.? Sestamibi/sestamibi perfusion scan pending; see separate report. Date of Service: 07/20/22 Procedure(s): CLINICAL WRITER request for service Conclusions ? 1. No significant disease noted in the Left Main, Left Anterior Descending, Right, or Circumflex coronary arteries. Date of Service: 07/19/22 Procedure(s): CV. echo complete* [id number] ?CONCLUSIONS ?LV systolic function is normal with EF of 55 to 60%. ?Diastolic function is normal. ?Trace tricuspid regurgitation.? Mild pulmonic regurgitation. ?No comparison studies are available. Date of Service: 07/19/22 Procedure(s): CV carotid duplex BI* [id number] ?CONCLUSIONS ?Bilateral ICA stenosis less than 50%. ?Minimal atherosclerosis carotid arteries. Date of Service: 07/14/22 Procedure(s): MCT/Event Monitor 30 Days Event monitor: 1.? Monitoring period was from 07/14/2022 to 07/27/2022 2.? Baseline heart rhythm was normal sinus rhythm with nonsustained VT and heart rate of 116 bpm. 3.? Average heart rate was 85 bpm.? Maximum heart rate was 224 bpm and patient was had SVT.? This was recorded on 07/18/2022.Minimum heart rate was 50 bpm.? Patient had sinus bradycardia.? This was recorded at 5:49 AM on 07/16/2022 4. Patient reported symptoms of lightheadedness, shortness of breath and chest pressure correlated with PACs. Attestations 2 Medical Necessity Statement*: He needs continued hospitalization not crossing 2 midnights for cardiac workup with stress test and continuous cardiac monitoring for syncope given history of ventricular tachycardia Time Spent in Patient Care: 30 minutes Coding Level of Care Code Acute Code for Chg Fwd Diagnoses Pre-syncope R55 Hypotension I95.9 ICD (implantable cardioverter-defibrillator) in place Z95.810 CKD (chronic kidney disease) N18.9 NSVT (nonsustained ventricular tachycardia) I47.2 HTN (hypertension) I10 Hyperlipidemia E78.5 CHF (congestive heart failure) I50.9 Status post right inguinal hernia repair Z98.890; Z87.19 Time Spent (min) 30
--- NOTE | 2024-03-11 18:09 | USCV_ITS ---
Lazaro Moody Age: 78 Gender: M : 1945 Exam Date: 03/11/2024 21:35 Ordering Phys: Aminah Rangel MD Technologist: BALDEV Exam Location: [facility] – [place] Indication: presyncope, history of cardiac arrythmias, pacer/defibrillator Jul 2022. BP: 118 / 73 HR: 69 Rhythm: Paced Technical Quality: Adequate MEASUREMENTS (Male / Female) Normal Values 2D ECHO LV Diastolic Diameter PLAX 3.6 cm 4.2 - 5.9 / 3.9 - 5.3 cm LV Systolic Diameter PLAX 2.7 cm IVS Diastolic Thickness 1.5 cm 0.6 - 1.0 / 0.6 - 0.9 cm IVS Systolic Thickness 2.0 cm LVPW Diastolic Thickness 1.4 cm 0.6 - 1.0 / 0.6 - 0.9 cm LVPW Systolic Thickness 1.8 cm LVOT Diameter 1.3 cm LV Ejection Fraction 2D Teich 50.1 % LV Ejection Fraction MOD 2C 64.8 % LV Ejection Fraction 2C AL 64.5 % LA Diameter 3.4 cm LA Sys Volume AL 65.1 cm cubed LA Sys Volume Index AL 33.9 cm cubed/m squared Aorta at Sinotubular Diameter 3.5 cm IVC Diameter 1.7 cm M-MODE LA Ao Ratio MM 0.8 AV Cusp Separation MM 2.0 cm DOPPLER AV Peak Velocity 117.0 cm/s LVOT Peak Velocity 104.0 cm/s AV Area Cont Eq vti 1.3 cm squared AV Area Cont Eq pk 1.2 cm squared MV Peak Velocity 101.0 cm/s MV Area PHT 2.7 cm squared Mitral E to A Ratio 1.1 TR Peak Velocity 254.0 cm/s TR Peak Gradient 25.8 mmHg TV Peak E Velocity 42.0 cm/s Right Atrial Pressure 3.0 mmHg Pulmonary Artery Systolic Pressu 28.8 mmHg PV Peak Velocity 91.0 cm/s FINDINGS Left Ventricle Left ventricle is normal in size. LV systolic function is normal with EF of 60 to 65%. No regional wall motion abnormalities are seen. Right Ventricle Normal in size and function. Pacemaker lead is seen. Right Atrium Normal in size. Pacemaker lead is seen. Left Atrium Normal in size Mitral Valve Structurally normal mitral valve. Trace mitral regurgitation. Aortic Valve Structurally normal aortic valve. No significant stenosis or regurgitation. Tricuspid Valve Mild tricuspid regurgitation. Pulmonary artery systolic pressure is normal. Pulmonic Valve Not well-visualized. Pericardium Normal Aorta Normal in size IVC Appears to be normal CONCLUSIONS LV systolic function is normal with EF 60 to 65%. Trace mitral regurgitation. Mild tricuspid regurgitation Compared to prior echocardiogram from 2021, no significant changes are seen King Farmer MD (Electronically Signed) Final Date: 12 March 2024 07:38 S
--- NOTE | 2024-03-11 19:17 | ECG_ITS ---
[facility] Test Date: 2024-03-11 Pat Name: Lazaro Moody Department: Room: EDIP Gender: Male Telephone Station Repairer: : 1945 Requested By: Thomas Colon Order Number: [id number] Madelaine MD: Trace Malone M.D. Measurements Intervals [place] Rate: 69 P: 106 SC: 189 QRS: -25 QRSD: 104 T: 76 QT: 423 QTc: 456 Interpretive Statements ELECTRONIC ATRIAL PACEMAKER BORDERLINE LEFT AXIS DEVIATION [QRS AXIS < -20] ABNORMAL RHYTHM ECG Compared to ECG 03/11/2024 15:51:58 No significant changes Electronically Signed On 03-11-2024 19:39:24 CDT by Trace Malone M.D. [id number]
[2024-03-11] MEDS: famotidine 20 mg/2 mL INJ IVP (19:46)
[2024-03-11] MEDS: sodium chloride 0.9% 1,000 ML 60 ML IV (19:47)
[2024-03-11] MEDS: enoxaparin 30 mg/0.3 mL Syringe SUBCUT (19:47)
[2024-03-11] MEDS: ferrous sulfate EC 325 mg Tablet PO (19:47)
[2024-03-11 20:19] LABS: Troponin 5 6HR 17.89 ng/L (0-15); Troponin 5 6HR Delta -1.11 ng/L (0-12)
--- NOTE | 2024-03-11 20:50 | ECG_ITS ---
[facility] Test Date: 2024-03-11 Pat Name: Lazaro Moody Department: Room: EDIP Gender: Male Director Of Market Analysis: : 1945 Requested By: Thomas Colon Order Number: [id number] Madelaine MD: King Farmer M.D. Measurements Intervals [place] Rate: 69 P: 152 NC: 184 QRS: 0 QRSD: 110 T: 71 QT: 429 QTc: 460 Interpretive Statements ELECTRONIC ATRIAL PACEMAKER Compared to ECG 03/11/2024 19:17:52 No significant changes Electronically Signed On 03-12-2024 12:31:36 CDT by King Farmer M.D. [id number]
[2024-03-12] VITALS (9 sets, daily range): BP systolic 106–136; BP diastolic 64–89; PULSE 70; RESP 13–17; TEMP 36.4–36.8; O2SAT 96–99
--- NOTE | 2024-03-12 00:54 | PC.NURSE ---
800 mL dumped out of urinal at 0045
[2024-03-12 04:21] LABS: Alanine Aminotransferase 15 U/L (0-41); Albumin Level 3.4 g/dL (3.5-5.2); Alkaline Phosphatase 69 U/L (40-130); Anion Gap 11.3 (5-19); Aspartate Amino Transferase 19 U/L (0-40); Blood Urea Nitrogen 16 mg/dL (8-23); Calcium 8.3 mg/dL (8.5-10.5); Carbon Dioxide 26 mmol/L (22-29); Chloride 108 mmol/L (98-107); Creatinine Clr Calc Pharmacy 50.9221; Globulin 2.1 g/dL (1.3-4.6); Glucose 79 mg/dL (65-115); Magnesium 2.2 mg/dL (1.7-2.3); Osmolality Calculated 292 mOsm/kg (285-295); Potassium 4.3 mmol/L (3.5-5.1); Sodium 141 mmol/L (136-145); Total Bilirubin 0.6 mg/dL (0.15-1.2); Total Protein 5.5 g/dL (6.6-8.7)
[2024-03-12 04:32] LABS: NT Pro B Type Natriuretic Pept 83 pg/mL (0-450)
--- NOTE | 2024-03-12 06:14 | P.PN_ITS ---
Subjective 2 Subjective: Patient is overall doing well. Denies chest pain. Echo shows normal LV systolic function. Plan for stress test tomorrow Vitals/I&O/Wt Last Vital Signs Temp 97.8 F 03/12/24 03:21 Pulse 70 03/12/24 03:13 Resp 14 03/12/24 03:13 BP 116/71 03/12/24 03:13 Pulse Ox 98 03/12/24 03:13 O2 Del Method Room Air 03/12/24 03:13 03/11/24 03/11/24 03/12/24 14:59 22:59 06:59 Intake Total 500 / 500 0 / 500 Output Total 350 / 350 Balance 500 / 500 -350 / 150 Weight last 48 hrs Weight 166 lb Weight 166 lb Physical Exam 2 Narrative: GENERAL: Patient is alert, awake and oriented x3. [] NECK: No jugular vein distension. [] HEENT: No cyanosis. No icterus. No pallor. [] HEART: Regular S1 and S2. No murmur, rub or gallop. [] LUNGS: Clear to auscultate bilaterally. [] CENTRAL NERVOUS SYSTEM: Grossly nonfocal. [] EXTREMITIES: Lower extremities with 1+ edema bilaterally. Data 03/11/24 12:24 03/13/24 03:40 A&P Assessment and plan (1) Chest pain: (2) ICD (implantable cardioverter-defibrillator) in place: (3) Hyperlipidemia: (4) HTN (hypertension): Plan Patient is overall stable. ICD interrogation reveals normal function. Echo shows normal LV systolic function. Plan for stress test tomorrow. Thank you for involving us with care of this patient. We will continue to follow. Please call with questions. Attestations 2 Medical Necessity Statement*: Care expected to cross 2midnights. Coding Level of Care Code Acute Code for [facility] Fwd Diagnoses Chest pain R07.9 ICD (implantable cardioverter-defibrillator) in place Z95.810 Hyperlipidemia E78.5 HTN (hypertension) I10
--- NOTE | 2024-03-12 08:10 | ECG_ITS ---
[facility] Test Date: 2024-03-13 Pat Name: Lazaro Moody Department: Room: 112 Gender: Male Site Acquisition Manager: Jeannette Deng : 1945 Requested By: Aminah Rangel Order Number: [id number] Madelaine MD: King Farmer M.D. Interpretive Statements NAME OF STUDY: LEXISCAN SESTAMIBI STRESS TEST INDICATION: [Pre-syncope, ] Procedure: At the baseline, the blood pressure was 139/73 mmHg with a heart rate of 70 bpm. The electrocardiogram showed normal sinus rhythm, normal axis with normal ST and T's. The Lexiscan was infused over a period of 20 seconds. A total of 0.4 mg of Lexiscan was infused. The stress phase was continued for a total of 5 minutes. Heart rate was at the end of stress phase was 70 bpm and a blood pressure of 119/66 mmHg. The EKG at the peak infusion revealed normal sinus rhythm with no significant ST-T wave changes. Sestamibi was injected 20 seconds after the Lexiscan infusion. Blood pressure at the end of recovery phase was 124/67 mmHg with a heart rate of 70 bpm. Conclusion: 1. Normal EKG response to Lexiscan infusion 2. No Lexiscan induced chest pain or cardiac arrhythmia. 3. Normal blood pressure and heart rate response. 4. Sestamibi/sestamibi perfusion scan pending; see separate report. Electronically Signed On 03-14-2024 12:09:28 CDT by King Farmer M.D. [id number]
--- NOTE | 2024-03-12 09:25 | PC.CHAP ---
Pastoral Care Encounter/Spiritual Assessment Type of Contact [] Declined flask cleaner visit [] Patient/Family/Request visit [] Outpatient visit [] Follow-up visit [] Physician referral [] Code/Alert [] Routine visit [] Staff referral [] Actively dying [] Patient sleeping [] Family support [] [] Out of room [] Palliative care [] [x] Receiving care in room [] Pre-surgical visit [] Trauma [] Long length of stay [] ICU visit [] Other: Relational/Emotional Strength [] Patient feels connected with others/family/visitors/staff [] Distress [] Loneliness/isolation [] Abandonment Spirituality of Patient [] Person of Adia [] Attends Restorationism of their Adia [] Believes in Prayer [] Reads Bible or Congregational materials [] There are Spiritual issues to be addressed Fitness Worker Interventions [] Prayer [] Active listening [] Non-anxious presence [] Spiritual/emotional support [] Crisis/trauma care [] Spiritual counseling [] Bereavement support [] Provided bereavement packet [] Provided Bible/devotional materials [] Provided toy/stuffed animal, coloring book to patient or family member [] Provided Communion [] Anointing/[place] [] Salvation [] Completed spiritual assessment [] Other: Impact on Illness or Injury [] Angry [] Fearful [] Anxious [] Often cries [] Exhaustion [] Unable to work [] Unable to attend rastafari [] Unable to walk/stand [] Unable to read [] Unable to drive [] Unable to eat/drink [] Unable to sleep [] Unable to be with family [] Patient intubated [] Other: Summary Time spent with patient
[2024-03-12] MEDS: donepezil 5 MG Tablet 10 MG PO (10:02)
[2024-03-12] MEDS: atorvastatin 40 mg Tablet 20 MG PO (10:03)
[2024-03-12] MEDS: metoprolol tartrate 25 mg Tablet PO ×2 (10:04→17:12)
[2024-03-12] MEDS: amiodarone 200 mg Tablet PO (10:04)
[2024-03-12] MEDS: famotidine 20 mg/2 mL INJ IVP ×2 (10:05→21:55)
[2024-03-12] MEDS: aspirin 81 mg EC Tablet PO ×2 (10:05→17:12)
[2024-03-12] MEDS: sodium chloride 0.9% 1,000 ML 60 ML IV (13:00)
--- NOTE | 2024-03-12 16:10 | P.PN_ITS ---
Subjective 2 Subjective: Patient was seen this morning, he still complained of dizziness and weakness, hence stress test will be scheduled in a.m. Denies any complaint of chest pain shortness of breath nausea vomiting or diarrhea Medications: Reviewed: Yes Vitals/I&O/Wt Last Vital Signs Temp 98.2 F 03/12/24 11:48 Pulse 70 03/12/24 11:48 Resp 17 03/12/24 11:48 BP 121/72 03/12/24 11:48 Pulse Ox 99 03/12/24 11:48 O2 Del Method Room Air 03/12/24 11:48 03/12/24 03/12/24 03/12/24 06:59 14:59 22:59 Intake Total 0 / 500 1836 / 1836 Output Total 350 / 350 400 / 400 Balance -350 / 150 1436 / 1436 Weight last 48 hrs Weight 75.296 kg Weight 75.296 kg Physical Exam 2 Narrative: General: No acute distress, AO x3 HEENT: PERRLA, pupils bilaterally equal and reactive, pallors not present Chest: Normal vesicular breath sounds, no added sounds, equal good air entry bilaterally CVS: S1-S2 regular, no murmurs, ICD in place Abdomen: Soft, nontender, no organomegaly, bowel sounds present Neuro: No focal deficits, no facial deformity, AO x3, power 5/5 in all limbs Extremities: no clubbing edema or cyanosis Data 03/11/24 12:24 03/12/24 03:15 A&P Assessment and plan (1) Pre-syncope: (2) Hypotension: (3) ICD (implantable cardioverter-defibrillator) in place: (4) CKD (chronic kidney disease): (5) NSVT (nonsustained ventricular tachycardia): (6) HTN (hypertension): (7) Hyperlipidemia: (8) CHF (congestive heart failure): (9) Status post right inguinal hernia repair: 78 year old male with h/o ICD (implantable cardioverter-defibrillator) in place Coronary artery disease, CKD (chronic kidney disease), Hyperlipidemia, HTN (hypertension),CHF , prostate cancer was in the surgery outpatient clinic today for post op follow up of right inguinal hernia and and felt lightheaded dizzy and near syncope. 1. Presyncope- Likely secondary to orthostatic hypotension and medication induced. Admit to CSU for continuous telemonitoring Given extensive cardiac history and ICD, he needs further workup to rule out cardiac cause. plan for stress test in a.m secondary to severe dizziness and weakness this morning N.p.o. past midnight. ICD was interrogated. Will hold lisinopril 20 mg daily for now. Will continue amiodarone 200 mg daily, metoprolol 12.5 mg twice a day Atorvastatin 40 mg daily Aspirin 81 mg twice a day. check ECHO 2. Hypotension- Will monitor for now Hold home dose of lisinopril Will give IV fluids normal saline at 60 cc per hour 3. Resume home medications 4. DVT prophylaxis with subcutaneous Lovenox 30 mg daily 5. GI prophylaxis with IV Pepcid 20 mg twice a day 6. CODE STATUS discussed with patient and his , he is full code for now Attestations 2 Medical Necessity Statement*: He needs continued hospitalization to rule out cardiac causes of presyncope with stress test given history of ventricular tachycardia s/p ICD Time Spent in Patient Care: 15 minutes Coding Level of Care Code Acute Code for [facility] Fwd Diagnoses Pre-syncope R55 Hypotension I95.9 ICD (implantable cardioverter-defibrillator) in place Z95.810 CKD (chronic kidney disease) N18.9 NSVT (nonsustained ventricular tachycardia) I47.2 HTN (hypertension) I10 Hyperlipidemia E78.5 CHF (congestive heart failure) I50.9 Status post right inguinal hernia repair Z98.890; Z87.19 Time Spent (min) 15
[2024-03-12] MEDS: enoxaparin 30 mg/0.3 mL Syringe SUBCUT (21:55)
[2024-03-13] VITALS (8 sets, daily range): BP systolic 114–157; BP diastolic 67–96; PULSE 70; RESP 10–20; TEMP 36.5–36.9; O2SAT 95–100; BMI 21.3
[2024-03-13] MEDS: sodium chloride 0.9% 1,000 ML 60 ML IV (03:46)
[2024-03-13 04:15] LABS: Anion Gap 10.2 (5-19); Blood Urea Nitrogen 14 mg/dL (8-23); Calcium 8.6 mg/dL (8.5-10.5); Carbon Dioxide 27 mmol/L (22-29); Chloride 107 mmol/L (98-107); Creatinine Clr Calc Pharmacy 50.9221; Glucose 88 mg/dL (65-115); Osmolality Calculated 290 mOsm/kg (285-295); Potassium 4.2 mmol/L (3.5-5.1); Sodium 140 mmol/L (136-145)
--- NOTE | 2024-03-13 06:15 | P.PN_ITS ---
Subjective 2 Subjective: Patient is doing well. no chest pain Vitals/I&O/Wt Last Vital Signs Temp 98.4 F 03/13/24 00:00 Pulse 70 03/13/24 01:56 Resp 10 L 03/13/24 00:00 BP 114/74 03/13/24 00:00 Pulse Ox 96 03/13/24 00:00 O2 Del Method Room Air 03/12/24 16:00 03/12/24 03/12/24 03/13/24 14:59 22:59 06:59 Intake Total 2308 / 2308 360 / 2668 886 / 3554 Output Total 400 / 400 600 / 1000 Balance 1908 / 1908 -240 / 1668 886 / 2554 Weight last 48 hrs Weight 166 lb Weight 166 lb Physical Exam 2 Narrative: GENERAL: Patient is alert, awake and oriented x3. [] NECK: No jugular vein distension. [] HEENT: No cyanosis. No icterus. No pallor. [] HEART: Regular S1 and S2. No murmur, rub or gallop. [] LUNGS: Clear to auscultate bilaterally. [] CENTRAL NERVOUS SYSTEM: Grossly nonfocal. [] EXTREMITIES: Lower extremities with 1+ edema bilaterally. Data 03/11/24 12:24 03/13/24 03:40 A&P Assessment and plan (1) Chest pain: (2) ICD (implantable cardioverter-defibrillator) in place: (3) Hyperlipidemia: (4) HTN (hypertension): Plan Stress test not showing significant ischemia. Artifact noted. Shared decision made to continue medical therapy Thank you for involving us with care of this patient. Please call with questions. Attestations 2 Medical Necessity Statement*: [facility]. Coding Level of Care Code Acute Code for [facility] Fwd Diagnoses Chest pain R07.9 ICD (implantable cardioverter-defibrillator) in place Z95.810 Hyperlipidemia E78.5 HTN (hypertension) I10
[2024-03-13] MEDS: regadenoson 0.4 Mg/5 ml Syringe 0.400000000000000022 MG IVP (07:32)
--- NOTE | 2024-03-13 08:11 | NMCV_ITS ---
NM ian perf SPECT r/s* [id number] Lazaro Moody Age: 78 Gender: M : 1945 Exam Date: 03/13/2024 08:11 Ordering Phys: Aminah Rangel MD Technologist: LILLIAM Andrade Exam Location: [facility] Indications: CHEST PAIN STRESS TEST Please see separate stress test report in [facility] for full findings IMAGE PROTOCOL Rest/Stress 1 Lexiscan Day Radiopharmaceutical Dose (mCi) Administration Site Administered by Rest: Tc-99m 10.9 IV LILLIAM Quach Sestamibi Stress:Tc-99m 32.6 IV LILLIAM Quach Sestamibi Rest: 13-Mar-2024 60 Discovery 630 Stress: 13-Mar-2024 30 Discovery 630 0.4mg Lexiscan. Images obtained in supine and prone position. SPECT RESULTS Technical Quality: Excellent Raw Data Analysis: Normal Image Corrections: No attenuation or motion correction applied Summed Stress Score: 8 Summed Rest Score: 2 Summed Difference Score: 6 PERFUSION FINDINGS Moderate area of minimal to moderately decreased aseptic involving the mid and apical inferior, basal and mid inferolateral, mid inferoseptal, and apical lateral segments regions. Significant reversibility was noted in these regions with the supine imaging. However with the prone imaging, no significant perfusion abnormalities were noted FUNCTIONAL RESULTS (calculated via Gated SPECT) Stress Image LV EF (%): 75 Stress EDV (mL):91 TID: 1 Stress ESV (mL):23 FUNCTIONAL FINDINGS: Segmental wall motion analysis revealing no gross wall motion abnormalities IMPRESSIONS 1. Myocardial perfusion imaging revealing moderate area of reversible defect involving the inferior, inferolateral and inferoseptal regions suggesting myocardial scarring in the distribution of the right coronary artery/circumflex artery. However because of the inconsistency with the prone imaging(by SPECT), this could be artifactual. Clinical correlation recommended 2. Normal LV ejection fraction 75%. 3. LV wall motion analysis revealing no gross wall motion abnormalities. 4. Normal LV volume. Because of the differences in technical quality, comparison with the previous study is difficult Dr Trace Malone MD [facility] (Electronically Signed) Final Date: 13 March 2024 13:34 S
[2024-03-13] MEDS: famotidine 20 mg/2 mL INJ IVP (10:26)
[2024-03-13] MEDS: donepezil 5 MG Tablet 10 MG PO (10:27)
[2024-03-13] MEDS: atorvastatin 40 mg Tablet 20 MG PO (10:27)
[2024-03-13] MEDS: metoprolol tartrate 25 mg Tablet PO (10:27)
[2024-03-13] MEDS: amiodarone 200 mg Tablet PO (10:28)
[2024-03-13] MEDS: aspirin 81 mg EC Tablet PO (10:28)
--- NOTE | 2024-03-13 11:23 | PM.DCS ---
Discharge Providers Date of Admission: 03/12/24 13:20 Date of Discharge: March 13, 2024 Attending Provider at Admission: Aminah Rangel MD Attending Provider at Discharge: Aminah Rangel MD Consults: cardiology Primary Care Provider: Cesar Martin APRN Diagnoses at Discharge Discharge Diagnosis (1) Chest pain: Status: Acute (2) ICD (implantable cardioverter-defibrillator) in place: Status: Acute (3) Hyperlipidemia: Status: Acute (4) HTN (hypertension): Status: Acute Reason for Visit Reason for Visit: Rapid response Brief History: Lazaro Moody is a 78 year old male with h/o ventricular tachycardia s/p ICD (implantable cardioverter-defibrillator) in place, Coronary artery disease, CKD (chronic kidney disease), Hyperlipidemia, HTN (hypertension),CHF , prostate cancer was in the surgery outpatient clinic today for post op follow up of right inguinal hernia. He reports he stood up, got lightheaded, dizzy and was almost going to pass out. 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 He states he has been on puree and liquid diet for a while for achalasia, but has been drinking well. Also this morning he noted to have a BP of 90/70. He already had taken his morning medications. He reports having light breakfast before going for surgery clinic. He has an ICD placed for ventricular tachycardia. He had a malfunction postoperatively and was reprogrammed. It has been working well since then as per the patient and his . Hospital Course Hospital Course He was admitted for presyncope and hypotension which resolved on admission. But given his cardiac history, plan was to rule out ACS. So he received of a Hilary scan which did not show any acute ischemia or infarction. His troponins were negative and he denied any chest pain during hospital stay. He had a repeat echo done which showed LV systolic function normal with EF of 60 to 65%, trace MR, mild AR and compared to echocardiogram from 2021 no significant changes. He is doing well and is ready to be discharged home Physical Exam Narrative: General: No acute distress, AO x3 HEENT: PERRLA, pupils bilaterally equal and reactive, pallors not present Chest: Normal vesicular breath sounds, no added sounds, equal good air entry bilaterally CVS: S1-S2 regular, no murmurs, ICD in place Abdomen: Soft, nontender, no organomegaly, bowel sounds present Neuro: No focal deficits, no facial deformity, AO x3, power 5/5 in all limbs Extremities: no clubbing edema or cyanosis Discharge Data Studies Completed and Pending Completed Studies During Hospitalization Category Date Time Status Cardiac Stress Test MIBI [Sestamibi Stress Test Request Exams 03/12/24 08:10 Draft ] Stat XR chest 1V portable [id number] Stat Exams 03/11/24 11:56 Completed CV. echo complete* [id number] Stat Ultrasound 03/11/24 18:09 Completed Pending at discharge Category Date Time Status NM ian perf SPECT r/s* [id number] Routine Nuc Med 03/13/24 08:11 Taken Laboratory Results WBC 7.43 10^3/uL (3.29-11.43) 03/11/24 12: RBC 4.09 10^6/uL (3.85-5.65) 03/11/24 12:24 Hgb 12.50 g/dL (11.27-16.99) 03/11/24 12:24 Hct 38.1 % (37-53) 03/11/24 12:24 MCV 93.2 fl (82-101) 03/11/24 12:24 MCH 30.6 pg (27-33) 03/11/24 12:24 MCHC 32.8 g/dL (30-55) 03/11/24 12:24 RDW 14.5 % (12.1-15.1) 03/11/24 12:24 Plt Count 166 10^3/cmm (157-399) 03/11/24 12:24 MPV 11.3 fL (7.4-10.4) H 03/11/24 12:24 Neut % (Auto) 56.1 % 03/11/24 12:24 Lymph % (Auto) 21.5 % 03/11/24 12:24 [place] % (Auto) 10.0 % 03/11/24 12:24 Eos % (Auto) 10.8 % 03/11/24 12:24 Baso % (Auto) 1.3 % 03/11/24 12:24 Neut # (Auto) 4.17 10^3/uL (1.8-7.7) 03/11/24 12:24 Lymph # (Auto) 1.6 10^3/uL (0.8-4.8) 03/11/24 12:24 [place] # (Auto) 0.7 10^3/uL (0.2-0.9) 03/11/24 12:24 Eos # (Auto) 0.8 10^3/uL (0.0-0.8) 03/11/24 12:24 Baso # (Auto) 0.1 10^3/uL (0.0-0.1) 03/11/24 12:24 Nucleated RBC % (auto) 0 % 03/11/24 12:24 Nucleated RBCs # 0.0 /100WBC 03/11/24 12:24 Sodium 140 mmol/L (136-145) 03/13/24 03:40 Potassium 4.2 mmol/L (3.5-5.1) 03/13/24 03:40 Chloride 107 mmol/L (98-107) 03/13/24 03:40 Carbon Dioxide 27 mmol/L (22-29) 03/13/24 03:40 Anion Gap 10.2 (5-19) 03/13/24 03:40 BUN 14 mg/dL (8-23) 03/13/24 03:40 Creatinine 1.3 mg/dL (0.7-1.2) H 03/13/24 03:40 GFR Calculation Not Reportable 03/13/24 03:40 Glucose 88 mg/dL (65-115) 03/13/24 03:40 Calculated Osmolality 290 mOsm/kg (285-295) 03/13/24 03:40 Calcium 8.6 mg/dL (8.5-10.5) 03/13/24 03:40 Magnesium 2.2 mg/dL (1.7-2.3) 03/12/24 03:15 Total Bilirubin 0.6 mg/dL (0.15-1.2) 03/12/24 03:15 AST 19 U/L (0-40) 03/12/24 03:15 ALT 15 U/L (0-41) 03/12/24 03:15 Alkaline Phosphatase 69 U/L (40-130) 03/12/24 03:15 Troponin T Baseline 19 ng/L (0-15) H 03/11/24 12:24 Troponin T 120 Minute 20.02 ng/L (0-15) H 03/11/24 15:05 Delta Troponin T 1.02 ABS# (0-10) 03/11/24 15:05 Troponin T Hi Sens 6Hr 17.89 ng/L (0-15) H 03/11/24 19:54 Troponin T Hi Sens 6Hr Delta -1.11 ng/L (0-12) L 03/11/24 19:54 NT-Pro-B Natriuret Pep 83 pg/mL (0-450) 03/12/24 03:15 Total Protein 5.5 g/dL (6.6-8.7) L 03/12/24 03:15 Albumin 3.4 g/dL (3.5-5.2) L 03/12/24 03:15 Globulin 2.1 g/dL (1.3-4.6) 03/12/24 03:15 Urine Color Yellow (Yellow) 03/11/24 14:42 Urine Appearance Clear (CLEAR) 03/11/24 14:42 Urine pH 5 (5-7) 03/11/24 14:42 Ur Specific [place] 1.010 (1.005-1.030) 03/11/24 14:42 Urine Protein Neg (Negative) 03/11/24 14:42 Urine Glucose (UA) Norm (Normal) 03/11/24 14:42 Urine Ketones Negative (Negative) 03/11/24 14:42 Urine Blood Neg (Negative) 03/11/24 14:42 Urine Nitrate Negative (Negative) 03/11/24 14:42 Urine Bilirubin Neg (Negative) 03/11/24 14:42 Urine Urobilinogen Neg mg/dL (Negative) 03/11/24 14:42 Ur Leukocyte Esterase Negative (Negative) 03/11/24 14:42 Vitals Last Vital Signs Temp 97.7 F 03/13/24 08:00 Pulse 70 03/13/24 08:00 Resp 20 H 03/13/24 08:00 BP 143/96 03/13/24 08:00 Pulse Ox 95 03/13/24 08:00 O2 Del Method Room Air 03/13/24 08:00 Discharge Plan Discharge Patient Disposition: Home Condition: Stable Prescriptions: No Action donepezil 10 mg tablet 10 mg PO BEDTIME aspirin 81 mg tablet,delayed release (DR/EC) 81 mg PO BID metoprolol tartrate 25 mg tablet 12.5 mg PO BID amiodarone 200 mg tablet 100 mg PO DAILY tramadol 50 mg tablet 50 mg PO BID PRN (Reason: Pain) Hold Instructions: Resume on 03/03/24. lisinopril 10 mg tablet 5 mg PO DAILY hydrocodone-acetaminophen 7.5-325 mg tablet 1 tab PO Q6H PRN (Reason: pain) Qty: 20 0RF docusate sodium [Colace] 100 mg capsule 100 mg PO BID Qty: 20 0RF polyethylene glycol 3350 [Miralax] 17 gram/dose powder 17 g PO DAILY Qty: 119 0RF trazodone 50 mg tablet 50 mg PO BEDTIME atorvastatin 10 mg tablet 10 mg PO BEDTIME ferrous sulfate [FeroSul] 325 mg (65 mg iron) tablet 325 mg PO .3XWEEKLY Rx Instructions: monday, monday, mon Discharge Orders: Discharge Order (Routine); Ordered 03/13/24 Ordered By: Aminah Rangel Referrals: Cesar Martin APRN [Primary Care Provider] - 03/20/24 1:00 pm Barbi Aiken FNP [Nurse Practitioner] - 03/20/24 11:00 am Discharge Diet: Cardiac Discharge Activity: Increase activity as tolerated Patient Instructions: Opioid Safety, Pain Management Activity Restrictions/Additional Instructions: follow up cardiology clinic in 1 week Discharge Attestations Time Spent in Discharge Care*: less than 30 min Quality Metrics Clinical Quality Measures [ No reported AMI, CVA or VTE this stay] Coding Level of Care Code Acute Code for [facility] Fwd Diagnoses Chest pain R07.9 ICD (implantable cardioverter-defibrillator) in place Z95.810 Hyperlipidemia E78.5 HTN (hypertension) I10 Time Spent (min) 20
--- NOTE | 2024-03-13 14:22 | PC.NURSE ---
discharge instructions given and explained.pt and spouse verb understanding of instructions.discharged via w/c to exit at this time.spouse to drive pt home.
== END 2024-03-13 14:25 | disposition home or self-care (01) | DRG 316 ==
LOC: ER 16:12 → ER IP 19:08 → CSU 03-12 01:45
PROVIDERS: Admitting Provider Internal Medicine; Emergency Provider Family Medicine; PCP Nurse Practitioner Family; Visit Provider Internal Medicine
DX: I95.9 Hypotension, unspecified (principal); R55 Syncope and collapse; Z95.810 Presence of automatic (implantable) cardiac defibrillator; E78.5 Hyperlipidemia, unspecified; I11.0 Hypertensive heart disease with heart failure; I50.9 Heart failure, unspecified; I25.10 Atherosclerotic heart disease of native coronary artery without angina pectoris; Z79.82 Long term (current) use of aspirin
CPT/HCPCS: 36415; 71045; 78452; 80048; 80053; 81003; 83735; 83880; 84484; 85025; 93005; 93017; 93306; 96360; 96372; 96375; 96376; 99214; 99285; A9500; G0378; J1650; J2785; J3490; J7030; J7040

== ENCOUNTER → 2024-03-28 13:13 | Outpatient (BNVA) | payer MEDICARE, SELFPAY | PROVIDERS: PCP Nurse Practitioner Family; Visit Provider Nurse Practitioner Family | DX: I13.0 Hypertensive heart and chronic kidney disease with heart failure and stage 1 through stage 4 chronic kidney disease, or unspecified chronic kidney disease (principal); N18.9 Chronic kidney disease, unspecified; I50.9 Heart failure, unspecified; Z87.891 Personal history of nicotine dependence | CPT/HCPCS: 99213 ==

== ENCOUNTER → 2024-08-05 10:59 | Outpatient (BNVA) | payer MEDICARE, SELFPAY | PROVIDERS: PCP Nurse Practitioner Family; Visit Provider Internal Medicine Cardiovascular Disease | DX: R07.9 Chest pain, unspecified (principal); I42.9 Cardiomyopathy, unspecified; R09.89 Other specified symptoms and signs involving the circulatory and respiratory systems; Z87.891 Personal history of nicotine dependence; I44.7 Left bundle-branch block, unspecified; R94.31 Abnormal electrocardiogram [ECG] [EKG] | CPT/HCPCS: 93005; 99214 ==

== ENCOUNTER → 2024-08-23 07:46 | Outpatient (BNVA) | payer MEDICARE, SELFPAY | PROVIDERS: PCP Nurse Practitioner Family; Visit Provider Nurse Practitioner Family | DX: I42.9 Cardiomyopathy, unspecified (principal); I10 Essential (primary) hypertension; Z95.810 Presence of automatic (implantable) cardiac defibrillator | CPT/HCPCS: 99214 ==

== ENCOUNTER 2024-09-03 14:38 | Emergency (ER) | payer MEDICARE, SELFPAY ==
[2024-09-03 14:39] VITALS: BP 169/105; PULSE 70; RESP 16; TEMP 36.6; O2SAT 98; BMI 23.1
--- NOTE | 2024-09-03 14:40 | ECG_ITS ---
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
--- NOTE | 2024-09-03 14:40 | XRR_ITS ---
PROCEDURE INFORMATION: Exam: XR Chest Exam date and time: 09/03/2024 2:59 PM Age: 78 years old Clinical indication: Pain; Cough and dyspnea; Angina pectoris; Additional info: Dyspnea/cough TECHNIQUE: Imaging protocol: Radiologic exam of the chest. Views: 1 view. COMPARISON: CR XR chest 1V portable [id number] 03/11/2024 12:23 PM FINDINGS: Tubes, catheters and devices: Multilead pacemaker/defibrillator. Lungs: Unremarkable. No consolidation. Pleural spaces: Unremarkable. No pleural effusion. No pneumothorax. Heart/Mediastinum: Moderate hiatal hernia. Bones/joints: Unremarkable. XR/XR chest 1V portable [id number] IMPRESSION: No acute findings.
--- NOTE | 2024-09-03 14:42 | ED_ITS ---
Documented by User: Thomas Fontenot DO 09/05/24 06:21 HPI - Chest Pain 2 General: Chief Complaint: Chest Pain Stated Complaint: Chest Pain Time Seen by Provider: 09/03/24 14:40 History of Present Illness: 78-year-old male presents to the emergen cy room with complaint of chest pain. He states he has been having multiple syncopal episodes recently. He is not having any chest discomfort now he was at [facility] began having chest pain was clutching at his chest rapid response was called and he was brought here. He states he gets these frequently will be associated with diaphoresis and shortness of breath he was seen recently at [place] there is no significant finding he did have a pacer interrogation that showed 24 events most of them look like they were SVT. Several or nonsustained events. He is not having any chest pain at this time. No recent fever sweats or chills. Associated symptoms: Reports syncope; Deny abdominal pain, dyspnea or fever(s) Related Data Home Medications Medication Instructions Recorded Confirmed tramadol 50 mg tablet 50 mg PO BID PRN Pain 07/14/22 09/03/24 aspirin 81 mg tablet,delayed 81 mg PO BID 06/09/23 09/03/24 release donepezil 10 mg tablet 10 mg PO BEDTIME 06/09/23 09/03/24 metoprolol tartrate 25 mg tablet 12.5 mg PO BID 06/09/23 09/03/24 atorvastatin 10 mg tablet 10 mg PO BEDTIME 03/11/24 09/03/24 trazodone 50 mg tablet 50 mg PO BEDTIME 03/11/24 09/03/24 amiodarone 200 mg tablet 200 mg PO DAILY 08/23/24 09/03/24 Previous Rx's Medication Instructions Recorded docusate sodium 100 mg capsule 100 mg PO BID #20 caps 02/27/24 (Colace) hydrocodone 7.5 mg-acetaminophen 1 tab PO Q6H PRN pain #20 tabs 02/27/24 325 mg tablet polyethylene glycol 3350 17 17 g PO DAILY #119 grams 02/27/24 gram/dose oral powder (Miralax) lisinopril 5 mg tablet 5 mg PO DAILY #90 tabs 08/05/24 Allergies Allergy/AdvReac Type Severity Reaction Status Date / Time codeine Allergy Unknown Unknown Verified 09/03/24 14:22 esomeprazole [From Nexium] Allergy Unknown Unknown Verified 09/03/24 14:22 hydrocodone Allergy Unknown Unknown Verified 09/03/24 14:22 hydromorphone Allergy Unknown Unknown Verified 09/03/24 14:22 iodine Allergy Unknown Unknown Verified 09/03/24 14:22 latex Allergy Unknown Unknown Verified 09/03/24 14:22 morphine Allergy Unknown Unknown Verified 09/03/24 14:22 niacin Allergy Unknown Unknown Verified 09/03/24 14:22 zolpidem [From Ambien] Allergy Unknown Unknown Verified 09/03/24 14:22 oxycodone Allergy ALGY-Rash Verified 09/03/24 14:22 Allergy Unknown Unknown Uncoded 09/03/24 14:22 Review of Systems 2 Const: Denies: fever(s) or chills Card: Reports: chest pain and syncope Resp: Denies: dyspnea GI: Denies: abdominal pain : Denies: dysuria, urinary frequency or urinary urgency Musc: Denies: neck pain or back pain Skin/Breast: Denies: rash PFSH ED 2 PFSH: Medical History ICD (implantable cardioverter-defibrillator) in place Labile hypertension Cardiomyopathy HTN (hypertension) NSVT (nonsustained ventricular tachycardia) Coronary artery disease CKD (chronic kidney disease) Hyperlipidemia CHF (congestive heart failure) Prostate cancer Malignant neoplasm of prostate Surgical History Status post right inguinal hernia repair Hx of cholecystectomy History of knee replacement Hx of shoulder replacement Social History Smoking and tobacco/nicotine status: never used tobacco/nicotine Physical Exam 2 Const: COMMON NORMALS: no acute distress GENERAL APPEARANCE: cooperative and comfortable ORIENTATION/CONSCIOUSNESS: Yes awake, Yes oriented to person, Yes oriented to place and Yes oriented to time HENMT: COMMON NORMALS: normocephalic, atraumatic and hearing grossly normal bilaterally HEAD & SCALP: normocephalic and atraumatic Resp: COMMON NORMALS: normal respiratory effort, No retractions, No use of accessory muscles and clear to auscultation bilaterally AUSCULTATION: clear to auscultation bilaterally Cardio: COMMON NORMALS: regular rate, regular rhythm and No murmurs present (Cardio) RATE: regular rate RHYTHM: regular rhythm GI: COMMON NORMALS: Soft to palpation and No hepatosplenomegaly present A USCULTATION: Yes normoactive bowel sounds PALPATION: Yes Soft to palpation, No Tenderness to palpation present (GI), No Guarding due to palpation present (GI) and Yes No hepatosplenomegaly present Extremity: COMMON NORMALS: normal to inspection, capillary refill normal, no clubbing, cyanosis or edema, no calf tenderness and no pedal edema Neuro: SENSORIUM/ORIENTATION: Yes oriented to person, Yes oriented to place and Yes oriented to time Skin: COMMON NORMALS: no rashes or lesions noted GENERAL SKIN EXAM: no rashes or lesions noted Course 2 Vital Signs: Vital signs: Vital Signs Temperature 97.8 F 09/03/24 14:39 Pulse Rate 70 09/03/24 18:45 Respiratory Rate 16 09/03/24 18:45 Blood Pressure 179/105 09/03/24 18:45 Pulse Oximetry 97 09/03/24 18:45 Oxygen Delivery Me thod Room Air 09/03/24 17:45 MDM - Chest Pain Medical Decision Making Care signed out to Dr. Gibson at change of shift. See final notes for diagnosis and disposition. Care transitioned over myself at shift change, lab work was reviewed troponins are benign. Patient not having more chest pain. Chest x-ray was negative. Patient will be discharged home and instructed to follow back up with cardiology. Lab Data 09/03/24 14:56 09/03/24 14:56 Radiology Impressions Chest X-Ray 09/03/24 14:40 IMPRESSION: No acute findings. Laboratory Results WBC 5.23 10^3/uL (3.29-11.43) 09/03/24 14:56 RBC 3.87 10^6/uL (3.85-5.65) 09/03/24 14:56 Hgb 12.20 g/dL (11.27-16.99) 09/03/24 14:56 Hct 36.7 % (37-53) L 09/03/24 14:56 MCV 94.8 fl (82-101) 09/03/24 14:56 MCH 31.5 pg (27-33) 09/03/24 14:56 MCHC 33.2 g/dL (30-55) 09/03/24 14:56 RDW 13.2 % (12.1-15.1) 09/03/24 14:56 Plt Count 146 10^3/cmm (157-399) L 09/03/24 14:56 MPV 10.5 fL (7.4-10.4) H 09/03/24 14:56 Neut % (Auto) 47.9 % 09/03/24 14:56 Lymph % (Auto) 30.8 % 09/03/24 14:56 Coos % (Auto) 11.9 % 09/03/24 14:56 Eos % (Auto) 7.8 % 09/03/24 14:56 Baso % (Auto) 1.0 % 09/03/24 14:56 Neut # (Auto) 2.51 10^3/uL (1.8-7.7) 09/03/24 14:56 Lymph # (Auto) 1.6 10^3/uL (0.8-4.8) 09/03/24 14:56 Coos # (Auto) 0.6 10^3/uL (0.2-0.9) 09/03/24 14:56 Eos # (Auto) 0.4 10^3/uL (0.0-0.8) 09/03/24 14:56 Baso # (Auto) 0.1 10^3/uL (0.0-0.1) 09/03/24 14:56 Nucleated RBC % (auto) 0 % 09/03/24 14:56 Nucleated RBCs # 0.0 /100WBC 09/03/24 14:56 Sodium 138 mmol/L (136-145) 09/03/24 14:56 Potassium 4.2 mmol/L (3.5-5.1) 09/03/24 14:56 Chloride 105 mmol/L (98-107) 09/03/24 14:56 Carbon Dioxide 26 mmol/L (22-29) 09/03/24 14:56 Anion Gap 11.2 (5-19) 09/03/24 14:56 BUN 14 mg/dL (8-23) 09/03/24 14:56 Creatinine 1.3 mg/dL (0.7-1.2) H 09/03/24 14:56 GFR Calculation Not Reportable 09/03/24 14:56 Glucose 93 mg/dL (65-115) 09/03/24 14:56 Calculated Osmolality 286 mOsm/kg (285-295) 09/03/24 14:56 Calcium 8.1 mg/dL (8.5-10.5) L 09/03/24 14:56 Total Bilirubin 0.7 mg/dL (0.15-1.2) 09/03/24 14:56 AST 17 U/L (0-40) 09/03/24 14:56 ALT 12 U/L (0-41) 09/03/24 14:56 Alkaline Phosphatase 73 U/L (40-130) 09/03/24 14:56 Troponin T Baseline 14 ng/L (0-15) 09/03/24 14:56 Troponin T 120 Minute 13.78 ng/L (0-15) 09/03/24 17:16 Delta Troponin T -0.22 ABS# (0-10) L 09/03/24 17:16 Total Protein 5.6 g/dL (6.6-8.7) L 09/03/24 14:56 Albumin 3.7 g/dL (3.5-5.2) 09/03/24 14:56 Globulin 1.9 g/dL (1.3-4.6) 09/03/24 14:56 Discharge Plan Discharge Patient Disposition: Home Clinical Impression: Atypical chest pain Condition: Stable Prescriptions: No Action donepezil 10 mg tablet 10 mg PO BEDTIME aspirin 81 mg tablet,delayed release (DR/EC) 81 mg PO BID metoprolol tartrate 25 mg tablet 12.5 mg PO BID amiodarone 200 mg tablet 200 mg PO DAILY tramadol 50 mg tablet 50 mg PO BID PRN (Reason: Pain) Hold Instructions: Resume on 03/03/24. lisinopril 5 mg tablet 5 mg PO DAILY Qty: 90 3RF hydrocodone-acetaminophen 7.5-325 mg tablet 1 tab PO Q6H PRN (Reason: pain) Qty: 20 0RF docusate sodium [Colace] 100 mg capsule 100 mg PO BID Qty: 20 0RF polyethylene glycol 3350 [Miralax] 17 gram/dose powder 17 g PO DAILY Qty: 119 0RF trazodone 50 mg tablet 50 mg PO BEDTIME atorvastatin 10 mg tablet 10 mg PO BEDTIME Discharge Orders: Discharge ED (Routine); Ordered 09/03/24 Ordered By: Trent Gibson Referrals: Cesar Martin APRN [Primary Care Provider] - 1 week Patient Instructions: Chest Pain (ED) Activity Restrictions/Additional Instructions: Your evaluation ER did not reveal acute cardiac cause of your chest pain. Is felt to be noncardiac in nature please follow-up with your family practice physician and/or organic section technical lead within next 7 days for further evaluation and treatment as needed. If your chest pain worsens or changes please feel free to return to the ER. Coding Level of Care Code ED Ball Fringe Machine Operator for Chg Fwd Documented by User: Trent Gibson DO 09/03/24 18:29 HPI - Chest Pain 2 General: Chief Complaint: Chest Pain Stated Complaint: Chest Pain Time Seen by Provider: 09/03/24 14:40 Related Data Home Medications Medication Instructions Recorded Confirmed tramadol 50 mg tablet 50 mg PO BID PRN Pain 07/14/22 09/03/24 aspirin 81 mg tablet,delayed 81 mg PO BID 06/09/23 09/03/24 release donepezil 10 mg tablet 10 mg PO BEDTIME 06/09/23 09/03/24 metoprolol tartrate 25 mg tablet 12.5 mg PO BID 06/09/23 09/03/24 atorvastatin 10 mg tablet 10 mg PO BEDTIME 03/11/24 09/03/24 trazodone 50 mg tablet 50 mg PO BEDTIME 03/11/24 09/03/24 amiodarone 200 mg tablet 200 mg PO DAILY 08/23/24 09/03/24 Previous Rx's Medication Instructions Recorded docusate sodium 100 mg capsule 100 mg PO BID #20 caps 02/27/24 (Colace) hydrocodone 7.5 mg-acetaminophen 1 tab PO Q6H PRN pain #20 tabs 02/27/24 325 mg tablet polyethylene glycol 3350 17 17 g PO DAILY #119 grams 02/27/24 gram/dose oral powder (Miralax) lisinopril 5 mg tablet 5 mg PO DAILY #90 tabs 08/05/24 Allergies Allergy/AdvReac Type Severity Reaction Status Date / Time codeine Allergy Unknown Unknown Verified 09/03/24 14:22 esomeprazole [From Nexium] Allergy Unknown Unknown Verified 09/03/24 14:22 hydrocodone Allergy Unknown Unknown Verified 09/03/24 14:22 hydromorphone Allergy Unknown Unknown Verified 09/03/24 14:22 iodine Allergy Unknown Unknown Verified 09/03/24 14:22 latex Allergy Unknown Unknown Verified 09/03/24 14:22 morphine Allergy Unknown Unknown Verified 09/03/24 14:22 niacin Allergy Unknown Unknown Verified 09/03/24 14:22 zolpidem [From Ambien] Allergy Unknown Unknown Verified 09/03/24 14:22 oxycodone Allergy ALGY-Rash Verified 09/03/24 14:22 [id number] Allergy Unknown Unknown Uncoded 09/03/24 14:22 PFSH ED 2 PFSH: Medical History ICD (implantable cardioverter-defibrillator) in place Labile hypertension Cardiomyopathy HTN (hypertension) NSVT (nonsustained ventricular tachycardia) Coronary artery disease CKD (chronic kidney disease) Hyperlipidemia CHF (congestive heart failure) Prostate cancer Malignant neoplasm of prostate Surgical History Status post right inguinal hernia repair Hx of cholecystectomy History of knee replacement Hx of shoulder replacement Social History Smoking and tobacco/nicotine status: never used tobacco/nicotine Course 2 Vital Signs: Vital signs: Vital Signs Temperature 97.8 F 09/03/24 14:39 Pulse Rate 70 09/03/24 18:45 Respiratory Rate 16 09/03/24 18:45 Blood Pressure 179/105 09/03/24 18:45 Pulse Oximetry 97 09/03/24 18:45 Oxygen Delivery Me thod Room Air 09/03/24 17:45 MDM - Chest Pain Medical Decision Making Care transitioned over myself at shift change, lab work was reviewed troponins are benign. Patient not having more chest pain. Chest x-ray was negative. Patient will be discharged home and instructed to follow back up with cardiology. Lab Data 09/03/24 14:56 09/03/24 14:56 Radiology Impressions Chest X-Ray 09/03/24 14:40 IMPRESSION: No acute findings. Laboratory Results WBC 5.23 10^3/uL (3.29-11.43) 09/03/24 14:56 RBC 3.87 10^6/uL (3.85-5.65) 09/03/24 14:56 Hgb 12.20 g/dL (11.27-16.99) 09/03/24 14:56 Hct 36.7 % (37-53) L 09/03/24 14:56 MCV 94.8 fl (82-101) 09/03/24 14:56 MCH 31.5 pg (27-33) 09/03/24 14:56 MCHC 33.2 g/dL (30-55) 09/03/24 14:56 RDW 13.2 % (12.1-15.1) 09/03/24 14:56 Plt Count 146 10^3/cmm (157-399) L 09/03/24 14:56 MPV 10.5 fL (7.4-10.4) H 09/03/24 14:56 Neut % (Auto) 47.9 % 09/03/24 14:56 Lymph % (Auto) 30.8 % 09/03/24 14:56 Coos % (Auto) 11.9 % 09/03/24 14:56 Eos % (Auto) 7.8 % 09/03/24 14:56 Baso % (Auto) 1.0 % 09/03/24 14:56 Neut # (Auto) 2.51 10^3/uL (1.8-7.7) 09/03/24 14:56 Lymph # (Auto) 1.6 10^3/uL (0.8-4.8) 09/03/24 14:56 Coos # (Auto) 0.6 10^3/uL (0.2-0.9) 09/03/24 14:56 Eos # (Auto) 0.4 10^3/uL (0.0-0.8) 09/03/24 14:56 Baso # (Auto) 0.1 10^3/uL (0.0-0.1) 09/03/24 14:56 Nucleated RBC % (auto) 0 % 09/03/24 14:56 Nucleated RBCs # 0.0 /100WBC 09/03/24 14:56 Sodium 138 mmol/L (136-145) 09/03/24 14:56 Potassium 4.2 mmol/L (3.5-5.1) 09/03/24 14:56 Chloride 105 mmol/L (98-107) 09/03/24 14:56 Carbon Dioxide 26 mmol/L (22-29) 09/03/24 14:56 Anion Gap 11.2 (5-19) 09/03/24 14:56 BUN 14 mg/dL (8-23) 09/03/24 14:56 Creatinine 1.3 mg/dL (0.7-1.2) H 09/03/24 14:56 GFR Calculation Not Reportable 09/03/24 14:56 Glucose 93 mg/dL (65-115) 09/03/24 14:56 Calculated Osmolality 286 mOsm/kg (285-295) 09/03/24 14:56 Calcium 8.1 mg/dL (8.5-10.5) L 09/03/24 14:56 Total Bilirubin 0.7 mg/dL (0.15-1.2) 09/03/24 14:56 AST 17 U/L (0-40) 09/03/24 14:56 ALT 12 U/L (0-41) 09/03/24 14:56 Alkaline Phosphatase 73 U/L (40-130) 09/03/24 14:56 Troponin T Baseline 14 ng/L (0-15) 09/03/24 14:56 Troponin T 120 Minute 13.78 ng/L (0-15) 09/03/24 17:16 Delta Troponin T -0.22 ABS# (0-10) L 09/03/24 17:16 Total Protein 5.6 g/dL (6.6-8.7) L 09/03/24 14:56 Albumin 3.7 g/dL (3.5-5.2) 09/03/24 14:56 Globulin 1.9 g/dL (1.3-4.6) 09/03/24 14:56 All radiology interpretation(s) finalized by discharge Discharge Plan Discharge Patient Disposition: Home Clinical Impression: Atypical chest pain Condition: Stable Prescriptions: No Action donepezil 10 mg tablet 10 mg PO BEDTIME aspirin 81 mg tablet,delayed release (DR/EC) 81 mg PO BID metoprolol tartrate 25 mg tablet 12.5 mg PO BID amiodarone 200 mg tablet 200 mg PO DAILY tramadol 50 mg tablet 50 mg PO BID PRN (Reason: Pain) Hold Instructions: Resume on 03/03/24. lisinopril 5 mg tablet 5 mg PO DAILY Qty: 90 3RF hydrocodone-acetaminophen 7.5-325 mg tablet 1 tab PO Q6H PRN (Reason: pain) Qty: 20 0RF docusate sodium [Colace] 100 mg capsule 100 mg PO BID Qty: 20 0RF polyethylene glycol 3350 [Miralax] 17 gram/dose powder 17 g PO DAILY Qty: 119 0RF trazodone 50 mg tablet 50 mg PO BEDTIME atorvastatin 10 mg tablet 10 mg PO BEDTIME Discharge Orders: Discharge ED (Routine); Ordered 09/03/24 Ordered By: Trent Gibson Referrals: Cesar Martin APRN [Primary Care Provider] - 1 week Patient Instructions: Chest Pain (ED) Activity Restrictions/Additional Instructions: Your evaluation ER did not reveal acute cardiac cause of your chest pain. Is felt to be noncardiac in nature please follow-up with your family practice physician and/or organic section technical lead within next 7 days for further evaluation and treatment as needed. If your chest pain worsens or changes please feel free to return to the ER. Coding Level of Care Code ED Ball Fringe Machine Operator for Christine Montgomery
[2024-09-03 15:01] LABS: Basophils # 0.1 10^3/uL (0.0-0.1); Eosinophils # 0.4 10^3/uL (0.0-0.8); Eosinophils % 7.8 %; Hematocrit 36.7 % (37-53); Lymphocytes # 1.6 10^3/uL (0.8-4.8); Lymphocytes % 30.8 %; Mean Corpuscular HGB Conc 33.2 g/dL (30-55); Mean Corpuscular Hemoglobin 31.5 pg (27-33); Mean Corpuscular Volume 94.8 fl (82-101); Mean Platelet Volume 10.5 fL (7.4-10.4); Monocytes # 0.6 10^3/uL (0.2-0.9); Monocytes % 11.9 %; Neutrophils # 2.51 10^3/uL (1.8-7.7); Neutrophils % 47.9 %; Nucleated Red Blood Cells % 0 %; Platelet Count 146 10^3/cmm (157-399); Red Blood Count 3.87 10^6/uL (3.85-5.65); Red Cell Distribution Width 13.2 % (12.1-15.1); White Blood Count 5.23 10^3/uL (3.29-11.43)
[2024-09-03] MEDS: aspirin 81 mg Chew Tablet 324 MG PO (15:02)
[2024-09-03 15:19] LABS: Troponin(5th) Baseline 14 ng/L (0-15)
[2024-09-03 15:22] LABS: Alanine Aminotransferase 12 U/L (0-41); Albumin Level 3.7 g/dL (3.5-5.2); Alkaline Phosphatase 73 U/L (40-130); Blood Urea Nitrogen 14 mg/dL (8-23); Calcium 8.1 mg/dL (8.5-10.5); Carbon Dioxide 26 mmol/L (22-29); Chloride 105 mmol/L (98-107); Creatinine Clr Calc Pharmacy 52.5505; Globulin 1.9 g/dL (1.3-4.6); Glucose 93 mg/dL (65-115); Osmolality Calculated 286 mOsm/kg (285-295); Sodium 138 mmol/L (136-145); Total Bilirubin 0.7 mg/dL (0.15-1.2); Total Protein 5.6 g/dL (6.6-8.7)
[2024-09-03 15:25] LABS: Anion Gap 11.2 (5-19); Aspartate Amino Transferase 17 U/L (0-40); Potassium 4.2 mmol/L (3.5-5.1)
[2024-09-03 15:34] VITALS: BP 149/93; PULSE 73; RESP 16; O2SAT 98
[2024-09-03 16:20] VITALS: BP 149/95; PULSE 99; RESP 16; O2SAT 100
--- NOTE | 2024-09-03 16:40 | ECG_ITS ---
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
[2024-09-03 17:45] VITALS: BP 162/102; PULSE 70; RESP 12; O2SAT 97
[2024-09-03 18:09] LABS: Troponin 5 2HR 13.78 ng/L (0-15)
[2024-09-03 18:11] LABS: Troponin 5 2HR Delta -0.22 ABS# (0-10)
[2024-09-03 18:45] VITALS: BP 179/105; PULSE 70; RESP 16; O2SAT 97
== END 2024-09-03 18:48 | disposition home or self-care (01) ==
PROVIDERS: Emergency Provider Family Medicine; PCP Nurse Practitioner Family
DX: R07.89 Other chest pain (principal); Z79.82 Long term (current) use of aspirin; I13.0 Hypertensive heart and chronic kidney disease with heart failure and stage 1 through stage 4 chronic kidney disease, or unspecified chronic kidney disease; I43 Cardiomyopathy in diseases classified elsewhere; N18.9 Chronic kidney disease, unspecified; I50.9 Heart failure, unspecified; I25.10 Atherosclerotic heart disease of native coronary artery without angina pectoris; E78.5 Hyperlipidemia, unspecified; Z85.46 Personal history of malignant neoplasm of prostate
CPT/HCPCS: 36415; 71045; 80053; 84484; 85025; 93005; 99285

== ENCOUNTER 2024-09-11 15:27 | Outpatient (CLI) | payer MEDICARE, SELFPAY ==
--- NOTE | 2024-09-11 15:33 | USCV_ITS ---
Lazaro Moody Age: 78 Gender: M : 1945 Exam Date: 09/11/2024 15:40 Ordering Phys: Cesar Martin APRN Technologist: MARCIE [place] [facility] [place]: Stenosis Risk Factors: Previous Vascular Surgery: Right Brachial BP: / Left Brachial BP: / Right Left Velocity (cm/s) Spectral Plaque Velocity (cm/s) Spectral Plaque Syst/Diast Broadening Syst/Diast Broadening 84.80/ 21.60 Prox CCA 104.00/ 22.60 103.50/25.80 Mid CCA 91.00 / 25.90 90.40/ 24.40 Distal CCA 77.80 / 21.50 72.70/ 15.90 Prox ICA 43.30 / 15.30 58.80/ 17.00 Mid ICA 55.20 / 17.10 42.70/ 18.10 Distal ICA 53.50 / 20.50 70.70 ECA 69.10 0.80 ICA/CCA 0.70 Antegrade Vertebral Antegrade 38.30/ 10.60 cm/s 45.80/ 9.40 cm/s Bi Subclavian Tri 49.00 65.80 FINDINGS Comparison:. 07/19/22 No significant elevation of systolic or diastolic velocities. Waveforms are normal. Minimal bilateral, atherosclerosis with no elevation of velocity. CONCLUSIONS Bilateral ICA stenosis less than 50%. No interval change in stenosis since prior exam. Dr. Deann Wilburn DO (Electronically Signed) Final Date: 12 September 2024 08:14 S
== END 2024-09-11 15:28 | disposition home or self-care (01) ==
LOC: RAD 15:27
PROVIDERS: PCP Nurse Practitioner Family; Visit Provider Nurse Practitioner Family
DX: I65.23 Occlusion and stenosis of bilateral carotid arteries (principal)
CPT/HCPCS: 93880

== ENCOUNTER → 2025-02-04 12:38 | Outpatient (BNVA) | payer MEDICARE, SELFPAY | PROVIDERS: PCP Nurse Practitioner Family; Visit Provider Internal Medicine Cardiovascular Disease | DX: I10 Essential (primary) hypertension (principal); I42.9 Cardiomyopathy, unspecified; I95.1 Orthostatic hypotension | CPT/HCPCS: 99214 ==

== ENCOUNTER → 2025-04-28 09:04 | Outpatient (BNVA) | payer MEDICARE, SELFPAY | PROVIDERS: PCP Nurse Practitioner Family; Visit Provider Nurse Practitioner Family | DX: I20.89 Other forms of angina pectoris (principal); I13.0 Hypertensive heart and chronic kidney disease with heart failure and stage 1 through stage 4 chronic kidney disease, or unspecified chronic kidney disease; N18.9 Chronic kidney disease, unspecified; I50.9 Heart failure, unspecified; I47.20 Ventricular tachycardia, unspecified; I95.1 Orthostatic hypotension; I42.9 Cardiomyopathy, unspecified; Z79.82 Long term (current) use of aspirin; Z95.810 Presence of automatic (implantable) cardiac defibrillator; I10 Essential (primary) hypertension; R55 Syncope and collapse | CPT/HCPCS: 99214 ==

== ENCOUNTER → 2025-05-20 10:12 | Outpatient (BNVA) | payer MEDICARE, SELFPAY | PROVIDERS: PCP Nurse Practitioner Family; Visit Provider Nurse Practitioner Family | DX: I20.89 Other forms of angina pectoris (principal); R55 Syncope and collapse | CPT/HCPCS: 80048; 85025; 85610 ==

== ENCOUNTER 2025-05-27 06:42 | Outpatient (CLI) | payer MEDICARE, SELFPAY ==
[2025-05-27] VITALS (14 sets, daily range): BP systolic 135–176; BP diastolic 73–106; PULSE 70–73; RESP 10–19; TEMP 36.5; O2SAT 95–100; BMI 22.1
[2025-05-27 08:14] LABS: Anion Gap 14.9 (5-19); Blood Urea Nitrogen 13 mg/dL (8-23); Calcium 8.8 mg/dL (8.5-10.5); Carbon Dioxide 26 mmol/L (22-29); Chloride 100 mmol/L (98-107); Creatinine Clr Calc Pharmacy 41.2422; Glucose 78 mg/dL (65-115); Osmolality Calculated 283 mOsm/kg (285-295); Potassium 3.9 mmol/L (3.5-5.1); Sodium 137 mmol/L (136-145)
--- NOTE | 2025-05-27 08:30 | XACV_ITS ---
Exam Room: 2 Ht: 188 cm Wt: 78 kg BSA: 2.01 m2 Gender: Male : 1945 Any Known Allergies: Other Exam Priority: Routine Procedure(s): Procedure Description: Diagnostic procedure Procedure Description: Coronary Angiography RAYMUNDO, Amanda; Diagnostic Cath Status: Elective Diagnostic Findings * Left Main has no disease. * Distal Left Anterior Descending: luminal irregularities 20% stenosis, FUAD: 3 flow. * Mid Right Coronary Artery: mild 40% stenosis, FUAD: 3 flow. * Mid Circumflex: moderate 50% stenosis, FUAD: 3 flow. * 2nd Diagonal: moderate 50% stenosis, FUAD: 3 flow. * Coronary angiography shows right dominance. Conclusions 1. There is moderate coronary artery disease with three vessel disease. Recommendations * Continue current medical management and risk factor modification. * a. * Return to inpatient for close monitoring and routine cath care. * Risk factor modification for secondary prevention. * Statin and aspirin 81mg lifelong, if tolerated. * Continue optimal medical management. Add isosorbide mononitrate for nonobstructive coronary artery disease. Diagnostic RX Recommendation: medical therapy and/or counseling Pressures Phase:Rest AO : 135 / 83 ( 109 ) @ 12:06:00 PM Clinical Evaluation EBL: 5mL-10mL Procedural Details Procedure Consent Obtained. Pre-Procedure Time Out. Identified patient by full name and date of as verbalized by the patient/guarantor. Does the consent match the physician's order: Yes. Accurate & Complete Informed Consent: Yes. Inpatient/Outpatient History & Physical on Chart: Yes. If H&P is completed, is and addenduem needed: No. Visualize and Verify Site with Patient/Guarantor: N/A. Relevant Radiology Images available: Yes. The risks, benefits, and alternatives of sedation and/or procedure were discussed by physician. The patient agrees to continue. Procedure started. [facility] Clinical Fraility Score: 3: Managing Well. 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 Chest Pain Symptom Assessment: Typical Angina Symptoms. Cardiovascular Instability: No. Correct patient, site and procedure confirmed by cath team. PERRLA. Strong, equal hand annual giving manager bilaterally. Lungs clear x 5 lobes. IV Site on Arrival: 20 gauge in the right anticubital. IV Fluids: 0.9% NaCl at KVO. 400 mL infused prior to field laborer. Pre Procedural Pulses: bilateral dorsalis pedis was 3+. Pre Procedural Pulses: bilateral posterior tibial was 3+. Pre Procedural Pulses: bilateral radial was 3+. Oxygen started at 2liters/min via nasal canula. right groin was prepped with chloroprep then draped in the usual sterile fashion. right radial was prepped with chloroprep then draped in the usual sterile fashion. Physician notified. Baseline sample Acquired. HR: 70 BPM. Patient's family in CPRU room #4. Dr. Patel will update at the completion of the procedure. Equipment: 6F - Radial. Cardiac Cath Pack. ACIST Manifold Kit Model BT 2000. Heparinized Saline (2 units/mL), 1000 mL bag. Physician arrived. Physician scrubbed in. Immediate Pre-Procedure Time Out. Correct Patient: Yes; Correct Procedure: Yes; Correct Site: Yes; Correct Patient Position: Yes; Correct Supplies: Yes; Dried Flammable Prep: Yes; Blood Products Available: N/A;. Lidocaine 1% infiltrated to the right radial. Arterial access obtained. A 5 kiswahili TIG catheter in over the exchange J wire. Multiple views taken of left coronary artery. Catheter redirected to the RCA. Multiple views taken of right coronary artery. Catheter removed over the exchange J wire. Physician scrubbed out. A TR Band was successful obtaining hemostatsis at the Right Radial artery insertion site. Post Procedure: Pulses reassessed and unchanged. PERRLA. Strong, equal hand annual giving manager bilaterally. No VTE prophylaxis required. Medication's Wasted: Lidocaine 1% = 18 mL. Medication's Wasted: Nitro = 49.8 mg. Medication's Wasted: Heparin = 1000 units. Medication's Wasted: Other = Versed 1 mg. Medication's Wasted: Other = Fentanyl 50 mcg. Total IV fluids: 52 mL. Post-op diagnosis: Non-Obstructive CAD. Complications: none. Estimated blood loss: 5mL-10mL. Responsiveness - Normal response to verbal stimuli; alert and oriented, PERRLA. Airway - Unaffected, no intervention required; spontaneous ventilation. Circulation: W/N/L, pulses unchanged. Nausea/Vomiting: No. Procedure completed. Patient transferred by bed to CPRU. Vital chart was stopped. Access Site Site: Right Radial artery Sheath Size: 6 Fr Hemostasis Method: TR Band Hemostasis Success: Successful Procedure Medications Start: 10:39 AM Stop: 10:39 AM Medication: Solu-Medrol (methylprednisolone) Amount: 125 mg Route: I.V. Start: 10:44 AM Stop: 10:44 AM Medication: Versed Amount: 1 mg Route: I.V. Start: 10:44 AM Stop: 10:44 AM Medication: Fentanyl Amount: 50 mcg Route: I.V. Start: 10:52 AM Stop: 10:52 AM Medication: Nitrogylcerin Amount: 200 mcg Route: I.A. Start: 10:56 AM Stop: 10:56 AM Medication: Heparin Amount: 5000 units Route: I.V. I, the attending physician, have reviewed and verified all procedure medications. Yes, all medications given per verbal order History/Risk Factors Hypertension: Yes Dyslipidemia: Yes Peripheral Arterial Disease (PAD): No Myocardial Infarction ([place]): No Obesity: No Renal Disease: No Tobacco Use: Never Prior Interventions PCI: No CABG: No Valve Surgery: No Report Signatures Finalized by Aaliyah Patel MD on 05/27/2025 11:25 AM
--- NOTE | 2025-05-27 08:53 | SUR.PREOP ---
MD NOTIFICATION MD CALLED. STATES TO GIVE 250 ML SALINE BOLUS AND RUN IV FLUIDS AT 100 ML AN HOUR POST BOLUS UNTIL CATH TIME D/T CREATNINE ELEVATION ON REDRAW. NOTED. INFUSING ORDERED.
--- NOTE | 2025-05-27 10:44 | W.PM.OPSUD ---
Surgery/Procedure H&P Update DATE OF PROCEDURE: May 27, 2025 DATE H&P PERFORMED: 04/28/25 CHANGES TO PREVIOUS DOCUMENTATION: Worsening of angina despite of optimization of medicine/unstable angina/history of ventricular tachycardia/history of nonobstructive coronary artery disease on the left heart catheterization in 2021 PLANNED PROCEDURE: Operation Date: 05/27/25 08:30 Proposed Procedures p Cardiac Catheterization - C w/wo LV & Coros(Left) - Aaliyah Patel MD PATIENT REASSESSED PRIOR TO SEDATION, WITH NO CHANGE NOTED: Yes PHYSICAL EXAM: alert, oriented x 3, clear to auscultation bilaterally, regular rate & rhythm and operative site marked AIRWAY EVAL/ANESTHESIA PLAN: ASA II, Risks, benefits & alternatives of sedation and/or procedure discussed and Patient agrees to continue as planned ADDITIONAL INFORMATION: Patient has been explained all risk-benefit and alternative for the procedure. Patient understand 2% risk of stroke major bleed, patient understand 5 to 6% risk of minor bleeding bruising infection hematoma pseudoaneurysm contrast induced nephropathy, he clearly understood and would like to proceed with it.
--- NOTE | 2025-05-27 11:35 | SUR.PHASEII ---
POST CATH FLUIDS 0.9% NS RUNNING AT 100 ML/HR POST CATH PER VERBAL ORDER FROM DR ROBLES.
--- NOTE | 2025-05-27 11:46 | SUR.PHASEII ---
POST CATH NOTE Received report from Anahi WYLIE. Patient post cath. Returned from procedure at 1125 approximately. I assumed care at 1135. Patient in no apparent distress. No c/o pain at this time. Right radial approach. TR Band in place. Site is hemostatic and free of s/s of hematoma formation at this time. Call light within reach. Informed to call for needs. Vitals and assessments per flowsheets.
== END 2025-05-27 14:57 | disposition home or self-care (01) ==
PROVIDERS: PCP Nurse Practitioner Family; Visit Provider Internal Medicine Cardiovascular Disease
DX: I25.10 Atherosclerotic heart disease of native coronary artery without angina pectoris (principal); E78.5 Hyperlipidemia, unspecified; Z79.82 Long term (current) use of aspirin; Z95.810 Presence of automatic (implantable) cardiac defibrillator; I12.9 Hypertensive chronic kidney disease with stage 1 through stage 4 chronic kidney disease, or unspecified chronic kidney disease; N18.9 Chronic kidney disease, unspecified; Z85.46 Personal history of malignant neoplasm of prostate
CPT/HCPCS: 36415; 80048; 93454; 96361; 96365; 99152; C1769; C1887; C1894; J0461; J1644; J2250; J2919; J3010; J3490; J7030; J9999; Q0163; Q9967

== ENCOUNTER → 2025-06-02 10:19 | Outpatient (BNVA) | payer MEDICARE, SELFPAY | PROVIDERS: PCP Nurse Practitioner Family; Visit Provider Internal Medicine Cardiovascular Disease | DX: I10 Essential (primary) hypertension (principal) | CPT/HCPCS: 80048 ==

== ENCOUNTER → 2025-07-08 15:13 | Outpatient (BNVA) | payer MEDICARE, SELFPAY | PROVIDERS: PCP Nurse Practitioner Family; Visit Provider Nurse Practitioner Family | DX: M25.552 Pain in left hip (principal); M25.512 Pain in left shoulder | CPT/HCPCS: 73030; 73501; 73502 ==

== ENCOUNTER 2025-07-08 17:31 | Emergency (ER) | payer MEDICARE, SELFPAY ==
[2025-07-08 17:52] VITALS: BP 138/78; PULSE 69; RESP 16; TEMP 36.7; O2SAT 100
--- NOTE | 2025-07-08 18:34 | XRR_ITS ---
PROCEDURE INFORMATION: Exam: XR Left Hip Exam date and time: 07/08/2025 6:48 PM Age: 79 years old Clinical indication: Injury or trauma; Fall; Blunt trauma (contusions or hematomas); Left; Hip TECHNIQUE: Imaging protocol: Radiologic exam of the left hip. Views: 2 or 3 views hip with pelvis when performed. COMPARISON: CR XR hip LT 1V wo/w pel [id number] 07/08/2025 3:22 PM FINDINGS: Bones/joints: Disruption of the left iliopectineal line with suggestion of the small cortical step-off, concerning for acute nondisplaced left superior pubic ramus fracture. No acute fracture or dislocation of the proximal femur. Soft tissues: Redemonstrated small linear metallic densities projecting over the lower midline pelvis, likely brachytherapy seeds. XR/XR hip LT 2-3V wo/w pel* [id number] IMPRESSION: 1. Disruption of the left iliopectineal line with suggestion of the small cortical step-off, concerning for acute nondisplaced left superior pubic ramus fracture. Consider CT of the pelvis for further evaluation. 2. No acute fracture or dislocation of the proximal left femur.
--- NOTE | 2025-07-08 18:34 | CTR_ITS ---
PROCEDURE INFORMATION: Exam: CT Head Without Contrast Exam date and time: 07/08/2025 7:16 PM Age: 79 years old Clinical indication: Injury or trauma; Fall; Blunt trauma (contusions or hematomas) and concussion/head injury TECHNIQUE: Imaging protocol: Computed tomography of the head without contrast. Radiation optimization: All CT scans at this facility use at least one of these dose optimization techniques: automated exposure control; mA and/or kV adjustment per patient size (includes targeted exams where dose is matched to clinical indication); or iterative reconstruction. COMPARISON: CT facial bones wo con* [id number] 07/08/2025 7:16 PM RADIATION DOSE METRICS: Total DLP (mGy-cm): 1166.9 FINDINGS: Brain: Normal. No hemorrhage. Unremarkable white matter. No mass effect. Cerebral ventricles: No ventriculomegaly. Paranasal sinuses: Visualized sinuses are unremarkable. No fluid levels. Mastoid air cells: Visualized mastoid air cells are well aerated. Bones: Unremarkable. No acute fracture. Soft tissues: Bilateral intra-ocular lens replacements. CT/CT head wo con* [id number] IMPRESSION: No acute intracranial finding.
--- NOTE | 2025-07-08 18:34 | CTR_ITS ---
PROCEDURE INFORMATION: Exam: CT Cervical Spine Without Contrast Exam date and time: 07/08/2025 7:16 PM Age: 79 years old Clinical indication: Injury or trauma; Fall; Blunt trauma TECHNIQUE: Imaging protocol: Computed tomography of the cervical spine without contrast. Radiation optimization: All CT scans at this facility use at least one of these dose optimization techniques: automated exposure control; mA and/or kV adjustment per patient size (includes targeted exams where dose is matched to clinical indication); or iterative reconstruction. COMPARISON: CT cervical spin wo con* [id number] 07/19/2022 8:48 PM RADIATION DOSE METRICS: Total DLP (mGy-cm): 166.3 FINDINGS: Bones: No acute fracture. Normal alignment. No significant disc bulge or herniation. Mild multilevel degenerative changes. No severe spinal canal stenosis. No significant neural foraminal narrowing. Lungs: Lung apices are normal. Soft tissues: Unremarkable. Other findings: A 1.2 cm hypodense nodule in the right thyroid lobe (no follow-up imaging is required). CT/CT cervical spin wo con* [id number] IMPRESSION: No cervical spine fracture or subluxation.
--- NOTE | 2025-07-08 18:38 | ECG_ITS ---
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 Measurements Intervals [place] Rate: 69 P: 154 DC: 190 QRS: -32 QRSD: 99 T: 71 QT: 428 QTc: 462 Interpretive Statements ELECTRONIC ATRIAL PACEMAKER LEFT AXIS DEVIATION [QRS AXIS < -30] Compared to ECG 09/03/2024 16:42:30 Ventricular-paced complex(es) or rhythm no longer present Electronically Signed On 07-08-2025 21:30:41 CDT by Tino Jackson M.D. [id number]
[2025-07-08 19:02] VITALS: BP 126/83; PULSE 70; O2SAT 100
--- NOTE | 2025-07-08 19:04 | CTR_ITS ---
PROCEDURE INFORMATION: Exam: CT Chest Without Contrast; Diagnostic Exam date and time: 07/08/2025 7:22 PM Age: 79 years old Clinical indication: Injury or trauma; Fall; Blunt trauma (contusions or hematomas); Additional info: Fall, contusion TECHNIQUE: Imaging protocol: Diagnostic computed tomography of the chest without contrast. Radiation optimization: All CT scans at this facility use at least one of these dose optimization techniques: automated exposure control; mA and/or kV adjustment per patient size (includes targeted exams where dose is matched to clinical indication); or iterative reconstruction. COMPARISON: 1. CR XR chest 1V portable [id number] 09/03/2024 2:[address] cervical spin wo con* [id number] 07/19/2022 8:48 PM RADIATION DOSE METRICS: Total DLP (mGy-cm): 284 FINDINGS: Tubes, catheters and devices: Dual lead AICD with left chest generator. Lungs: Mild heterogeneous right upper lobe ground-glass opacification. Mild dependent atelectasis. Pleural spaces: Unremarkable. No pneumothorax. No pleural effusion. Heart: Unremarkable. No cardiomegaly. No pericardial effusion. Coronary arteries: Heavy coronary artery calcification. Esophagus: Chronic diffuse esophageal dilatation filled with mottled liquid contents showing air-fluid level at the upper esophagus. Lymph nodes: Unremarkable. No enlarged lymph nodes. Vasculature: Mild systemic atherosclerotic calcification without aortic aneurysm. Gallbladder and biliary ducts: Prior cholecystectomy. Pancreas: Diffuse pancreatic fatty infiltration/atrophy. Spleen: Splenic calcified granulomata. Bones/joints: No acute fracture. Mild degenerative change along the spine. Soft tissues: Unremarkable. CT/CT chest wo con [id number] IMPRESSION: 1. Mild heterogeneous right upper lobe ground-glass opacification is likely infectious or inflammatory. 2. Chronic diffuse esophageal dilatation filled with mottled liquid contents and air-fluid level at the upper esophagus suggestive of achalasia. 3. Atherosclerosis with heavy coronary artery calcification.
--- NOTE | 2025-07-08 19:10 | CTR_ITS ---
PROCEDURE INFORMATION: Exam: CT Maxillofacial Without Contrast Exam date and time: 07/08/2025 7:16 PM Age: 79 years old Clinical indication: Injury or trauma; Fall; Blunt trauma (contusions or hematomas) and concussion/head injury; Without loss of consciousness; Cheek bone and eyelid and forehead; Upper left TECHNIQUE: Imaging protocol: Computed tomography of the face without contrast. Radiation optimization: All CT scans at this facility use at least one of these dose optimization techniques: automated exposure control; mA and/or kV adjustment per patient size (includes targeted exams where dose is matched to clinical indication); or iterative reconstruction. COMPARISON: CT head wo con* [id number] 07/08/2025 7:16 PM RADIATION DOSE METRICS: Total DLP (mGy-cm): 617.4 FINDINGS: Paranasal sinuses: No air-fluid levels. Orbital cavities: Orbits are normal. Globes are unremarkable. Bilateral intra-ocular lens replacements. Bones: No acute fracture. Soft tissues: Unremarkable. CT/CT facial bones wo con* [id number] IMPRESSION: No acute facial bone fracture.
[2025-07-08 19:51] LABS: Hematocrit 36.9 % (37-53); Hemoglobin 12.50 g/dL (11.27-16.99); Mean Corpuscular HGB Conc 33.9 g/dL (30-55); Mean Corpuscular Hemoglobin 31.0 pg (27-33); Mean Corpuscular Volume 91.6 fl (82-101); Nucleated Red Blood Cells % 0 %; Platelet Count 142 10^3/cmm (157-399); Red Blood Count 4.03 10^6/uL (3.85-5.65); White Blood Count 6.18 10^3/uL (3.29-11.43)
[2025-07-08 19:55] VITALS: BP 146/92; PULSE 70; O2SAT 99
--- NOTE | 2025-07-08 20:05 | CTR_ITS ---
PROCEDURE INFORMATION: Exam: CT Pelvis Without Contrast, Skeleton Exam date and time: 07/08/2025 8:28 PM Age: 79 years old Clinical indication: Pelvic pain; Additional info: Question of fracture on plain films TECHNIQUE: Imaging protocol: Computed tomography of the pelvis without contrast. Exam focused on the skeleton. Radiation optimization: All CT scans at this facility use at least one of these dose optimization techniques: automated exposure control; mA and/or kV adjustment per patient size (includes targeted exams where dose is matched to clinical indication); or iterative reconstruction. COMPARISON: 1. CR (PELVIS, ) 07/08/2025 6:48 PM 2. CR XR hip LT 1V wo/w pel [id number] 07/08/2025 3:22 PM RADIATION DOSE METRICS: Total DLP (mGy-cm): 294.62 FINDINGS: Intestine: Colonic diverticulosis. Vasculature: Mild aortoiliac atherosclerotic calcification. Reproductive: Prostate brachytherapy beads. Bones/joints: No acute fracture nor dislocation. Lower lumbar spine and bilateral sacroiliac joint degenerative change. Soft tissues: Evidence of prior hernia repair at the right lower abdomen. CT/CT bony pelvis [id number] IMPRESSION: No acute fracture.
--- NOTE | 2025-07-08 20:06 | W.ED.FALL ---
HPI - Fall General: Chief Complaint: Fall Stated Complaint: wants xrays Time Seen by Provider: 07/08/25 18:30 History of Present Illness: Patient was walking in his living room, and fell. He was going to get something to eat/drink out of his kitchen. He did not have warning of lightheadedness, and dizziness. Patient has done this multiple times in the past. He has a history of nonsustained VT tach controlled with amiodarone status post AICD pacemaker. Pacemaker did not shock patient. Last interrogation was reviewed which noted no ventricular fibrillation or ventricular tachycardia. In fact, he has had no ventricular tachycardia since placement of his pacemaker and no shocking. He is chronically on amiodarone. Associated symptoms-after fall: Denies abdominal pain, chest pain, headache(s), lightheadedness or neck pain Related Data Home Medications ?Medication ?Instructions ?Recorded ?Confirmed aspirin 81 mg tablet,delayed 81 mg PO BID 06/09/23 07/08/25 release donepezil 10 mg tablet 10 mg PO BEDTIME 06/09/23 07/08/25 atorvastatin 10 mg tablet 10 mg PO BEDTIME 03/11/24 07/08/25 trazodone 50 mg tablet 50 mg PO BEDTIME 03/11/24 07/08/25 amiodarone 200 mg tablet 200 mg PO DAILY 08/23/24 07/08/25 Previous Rx's ?Medication ?Instructions ?Recorded docusate sodium 100 mg capsule 100 mg PO BID #20 caps 02/27/24 (Colace) polyethylene glycol 3350 17 17 g PO DAILY #119 grams 02/27/24 gram/dose oral powder (Miralax) metoprolol tartrate 25 mg tablet 12.5 mg (1/2 x 25 mg) PO DAILY #45 02/04/25 tabs isosorbide dinitrate 30 mg tablet 30 mg PO BID #60 tabs 05/27/25 Allergies Allergy/AdvReac Type Severity Reaction Status Date / Time codeine Allergy Unknown Unknown Verified 07/08/25 17:59 esomeprazole (From Nexium) Allergy Unknown Unknown Verified 07/08/25 17:59 hydrocodone Allergy Unknown Unknown Verified 07/08/25 17:59 hydromorphone Allergy Unknown Unknown Verified 07/08/25 17:59 iodine Allergy Unknown Unknown Verified 07/08/25 17:59 iopamidol (From Isovue-M) Allergy Unknown Unknown Verified 07/08/25 17:59 latex Allergy Unknown Unknown Verified 07/08/25 17:59 morphine Allergy Unknown Unknown Verified 07/08/25 17:59 niacin Allergy Unknown Unknown Verified 07/08/25 17:59 zolpidem (From Ambien) Allergy Unknown Unknown Verified 07/08/25 17:59 oxycodone Allergy ALGY-Rash Verified 07/08/25 17:59 Review of Systems General: Reports: 10 or more systems reviewed and unremarkable except in HPI and below Const: Denies: fever(s) or chills Eyes: Reports: eye discomfort (Minimal left lateral with fall contusion); Denies: change in vision or blurry vision ENMT: Denies: throat pain or mouth pain Card: Denies: chest pain, palpitations, irregular heart rhythm or lightheadedness Resp: Denies: dyspnea or non-productive cough GI: Denies: abdominal pain, nausea or vomiting : Denies: flank pain or difficulty urinating Musc: Reports: extremity pain and joint pain; Denies: neck pain, back pain, extremity swelling, joint swelling or joint redness Skin/Breast: Reports: other (Ecchymosis); Denies: rash or pruritus Neuro: Reports: weakness in extremities; Denies: headache(s) or numbness in extremities Psych: Denies: anxiety or depression Navneet/Lymph: Denies: easy bruising or easy bleeding PFSH ED PFSH: Medical History (Updated 07/08/25 @ 22:22 by RADAH Davila) ICD (implantable cardioverter-defibrillator) in place Labile hypertension Cardiomyopathy HTN (hypertension) NSVT (nonsustained ventricular tachycardia) Coronary artery disease CKD (chronic kidney disease) Hyperlipidemia CHF (congestive heart failure) Prostate cancer Malignant neoplasm of prostate Surgical History Status post right inguinal hernia repair Hx of cholecystectomy History of knee replacement Hx of shoulder replacement Social History Smoking and tobacco/nicotine status: never used tobacco/nicotine Physical Exam Const: COMMON NORMALS: patient oriented x3 HENMT: COMMON NORMALS: normocephalic HEAD & SCALP: normocephalic FACE & SINUS IMAGES:  1. Blue to yellow to pink ecchymosis Eye: COMMON NORMALS: Equal, round and reactive pupils present, EOMs intact bilaterally and conjunctivae normal CONJUNCTIVA: Yes conjunctivae normal PUPIL: Yes Equal, round and reactive pupils present Neck/C-Spine: COMMON NORMALS: full ROM, no lymphadenopathy, supple and no meningeal signs Chest: COMMONS NORMALS: normal inspection of the chest and normal palpation of the breasts CHEST: Yes Symmetrical chest wall rise and Yes tenderness (upper chest on palpation) BREAST/AXILLA PALPATION: Yes normal palpation of the breasts Resp: COMMON NORMALS: normal respiratory effort, No retractions and clear to auscultation bilaterally AUSCULTATION: clear to auscultation bilaterally Cardio: COMMON NORMALS: regular rate and regular rhythm RATE: regular rate RHYTHM: regular rhythm GI: COMMON NORMALS: Normal to inspection, nondistended, normoactive bowel sounds present and Soft to palpation PALPATION: Yes Soft to palpation : COMMON NORMALS: Yes no CVA tenderness BLADDER/KIDNEY EXAM: Yes no CVA tenderness Back/Pelvis: COMMON NORMALS: no CVA tenderness Extremity: COMMON NORMALS: normal to inspection, full ROM and capillary refill normal Neuro: COMMON NORMALS: patient oriented x3, CN's II-XII intact bilaterally, moves all extremities, no focal motor deficits and no sensory deficits noted MENINGEAL SIGNS: Yes no meningeal signs Psych: COMMON NORMALS: mental status grossly normal, Normal thought process present and cooperative THOUGHT PROCESS: Normal thought process present Skin: COMMON NORMALS: no rashes or lesions noted GENERAL SKIN EXAM: no rashes or lesions noted Course Reevaluation(s): Reevaluation #1: At bedside modified orthostatics are abnormal with decrease in blood pressure systolically by 30 points, and increase in heart rate. IV fluid ordered x 1 L. Reevaluation #2: Improved after IV fluids of 1 L. Unable to interrogate pacemaker here due to the type. Will recommend patient has his pacemaker interrogated tomorrow with cardiology. Reevaluation #3: Continues to improve. Order given to patient. No complaints at this time. Vital Signs: Vital signs: Vital Signs Temperature 98.1 F 07/08/25 17:52 Pulse Rate 70 07/08/25 22:10 Respiratory Rate 16 07/08/25 17:52 Blood Pressure 145/89 07/08/25 22:10 Pulse Oximetry 93 07/08/25 22:10 Oxygen Delivery Me thod Room Air 07/08/25 22:10 MDM - Fall Medical Decision Making Patient is a 1-year-old male with fall from standing position. He had orthostatic positive vital signs upon standing, and received 1 L IV fluid. Creatinine is up from baseline at 1.8, typically 1.3?1.6. Suspect this is hypovolemia fall. Additionally, suspect superior ramus fracture. CT of the pelvis was negative for acute fracture. I do suspect a syncope associated with orthostatic hypotension since he reacted upon standing with 30 mmHg decrease in systolic pressure. He has now improved after 1 L IV fluid, and drinking water. He now gives history that he is bad about drinking caffeinated beverages and does not utilize 60 ounces daily. Medical Records I reviewed the patient's medical records. Lab Data I reviewed the patient's lab results. 07/08/25 19:39 07/08/25 19:39 Radiology Impressions Cervical Spine CT 07/08/25 18:34 IMPRESSION: No cervical spine fracture or subluxation. Head CT 07/08/25 18:34 IMPRESSION: No acute intracranial finding. Hip/Pelvis X-Ray 07/08/25 18:34 IMPRESSION: 1. Disruption of the left iliopectineal line with suggestion of the small cortical step-off, concerning for acute nondisplaced left superior pubic ramus fracture. Consider CT of the pelvis for further evaluation. 2. No acute fracture or dislocation of the proximal left femur. Chest CT 07/08/25 19:04 IMPRESSION: 1. Mild heterogeneous right upper lobe ground-glass opacification is likely infectious or inflammatory. 2. Chronic diffuse esophageal dilatation filled with mottled liquid contents and air-fluid level at the upper esophagus suggestive of achalasia. 3. Atherosclerosis with heavy coronary artery calcification. Face CT 07/08/25 19:10 IMPRESSION: No acute facial bone fracture. Pelvis CT 07/08/25 20:05 IMPRESSION: No acute fracture. Laboratory Results WBC 6.18 10^3/uL (3.29-11.43) 07/08/25 19:39 RBC 4.03 10^6/uL (3.85-5.65) 07/08/25 19:39 Hgb 12.50 g/dL (11.27-16.99) 07/08/25 19:39 Hct 36.9 % (37-53) L 07/08/25 19:39 MCV 91.6 fl (82-101) 07/08/25 19:39 MCH 31.0 pg (27-33) 07/08/25 19:39 MCHC 33.9 g/dL (30-55) 07/08/25 19:39 RDW 13.7 % (12.1-15.1) 07/08/25 19:39 Plt Count 142 10^3/cmm (157-399) L 07/08/25 19:39 MPV 10.8 fL (7.4-10.4) H 07/08/25 19:39 Neut % (Auto) 57.7 % 07/08/25 19:39 Lymph % (Auto) 23.3 % 07/08/25 19:39 Thayer % (Auto) 8.6 % 07/08/25 19:39 Eos % (Auto) 9.1 % 07/08/25 19:39 Baso % (Auto) 1.0 % 07/08/25 19:39 Neut # (Auto) 3.57 10^3/uL (1.8-7.7) 07/08/25 19:39 Lymph # (Auto) 1.4 10^3/uL (0.8-4.8) 07/08/25 19:39 Thayer # (Auto) 0.5 10^3/uL (0.2-0.9) 07/08/25 19:39 Eos # (Auto) 0.6 10^3/uL (0.0-0.8) 07/08/25 19:39 Baso # (Auto) 0.1 10^3/uL (0.0-0.1) 07/08/25 19:39 Nucleated RBC % (auto) 0 % 07/08/25 19:39 Nucleated RBCs # 0.0 /100WBC 07/08/25 19:39 Sodium 140 mmol/L (136-145) 07/08/25 19:39 Potassium 3.9 mmol/L (3.5-5.1) 07/08/25 19:39 Chloride 105 mmol/L (98-107) 07/08/25 19:39 Carbon Dioxide 26 mmol/L (22-29) 07/08/25 19:39 Anion Gap 12.9 (5-19) 07/08/25 19:39 BUN 14 mg/dL (8-23) 07/08/25 19:39 Creatinine 1.8 mg/dL (0.7-1.2) H 07/08/25 19:39 GFR Calculation Not Reportable 07/08/25 19:39 Glucose 93 mg/dL (65-115) 07/08/25 19:39 Calculated Osmolality 290 mOsm/kg (285-295) 07/08/25 19:39 Lactic Acid 0.6 mmol/L (0.5-2.2) 07/08/25 19:39 Calcium 8.6 mg/dL (8.5-10.5) 07/08/25 19:39 Total Bilirubin 1.0 mg/dL (0.15-1.2) 07/08/25 19:39 AST 16 U/L (0-40) 07/08/25 19:39 ALT 10 U/L (0-41) 07/08/25 19:39 Alkaline Phosphatase 72 U/L (40-130) 07/08/25 19:39 Troponin T Baseline 22 ng/L (0-15) H 07/08/25 19:39 Troponin T 120 Minute 20.77 ng/L (0-15) H 07/08/25 21:28 Delta Troponin T -1.23 ABS# (0-10) L 07/08/25 21:28 Total Protein 5.5 g/dL (6.6-8.7) L 07/08/25 19:39 Albumin 3.8 g/dL (3.5-5.2) 07/08/25 19:39 Globulin 1.7 g/dL (1.3-4.6) 07/08/25 19:39 TSH 2.00 uIU/mL (0.27-4.20) 07/08/25 19:39 Random Cortisol 5.37 ug/dL (2.47-19.5) 07/08/25 19:39 Urine Color Yellow (Yellow) 07/08/25 21:07 Urine Appearance Clear (CLEAR) 07/08/25 21:07 Urine pH 5.0 (5-7) 07/08/25 21:07 Ur Specific [place] 1.015 (1.005-1.030) 07/08/25 21:07 Urine Protein Negative (Negative) 07/08/25 21:07 Urine Glucose (UA) Negative (Normal) 07/08/25 21:07 Urine Ketones Trace (Negative) 07/08/25 21:07 Urine Blood Negative (Negative) 07/08/25 21:07 Urine Nitrate Negative (Negative) 07/08/25 21:07 Urine Bilirubin Negative (Negative) 07/08/25 21:07 Urine Urobilinogen 1.0 mg/dL (Negative) 07/08/25 21:07 Ur Leukocyte Esterase Negative (Negative) 07/08/25 21:07 Urine RBC 0-2 /hpf (0-2) 07/08/25 21:07 Urine WBC 0-5 /hpf (0-5) 07/08/25 21:07 Ur Squamous Epith Cells 0-5 /hpf (0-5) 07/08/25 21:07 Amorphous Sediment Not Reportable 07/08/25 21:07 Urine Bacteria None seen /hpf (NONE) 07/08/25 21:07 Hyaline Casts 2.05 /lpf 07/08/25 21:07 All radiology interpretation(s) finalized by discharge Discharge Plan Discharge Patient Disposition: Home Clinical Impression: Orthostatic hypotension, Syncope Condition: Stable Prescriptions: No Action donepezil 10 mg tablet 10 mg PO BEDTIME aspirin 81 mg tablet,delayed release (DR/EC) 81 mg PO BID amiodarone 200 mg tablet 200 mg PO DAILY metoprolol tartrate 25 mg tablet 12.5 mg PO DAILY Qty: 45 6RF isosorbide dinitrate 30 mg tablet 30 mg PO BID Qty: 60 5RF Rx Instructions: allow nitrate-free interval of 12-14 hrs per 24-hr period docusate sodium [Colace] 100 mg capsule 100 mg PO BID Qty: 20 0RF polyethylene glycol 3350 [Miralax] 17 gram/dose powder 17 g PO DAILY Qty: 119 0RF trazodone 50 mg tablet 50 mg PO BEDTIME atorvastatin 10 mg tablet 10 mg PO BEDTIME Discharge Orders: Discharge ED (Routine); Ordered 07/08/25 Ordered By: Chiara Clemons Referrals: Cesar Martin, LSAT INSTRUCTOR [Primary Care Provider] Discharge Diet: Usual diet Discharge Activity: Use walker/crutches as instructed and As per PT/OT instructions Patient Instructions: Dehydration (ED), Fall Prevention for Older Adults (ED), Patient Portal & Hugo Instructions Activity Restrictions/Additional Instructions: You will need to call cardiology office in the morning to have your pacemaker interrogated. Follow-up with your primary care physician regarding today's visit. You will need physical therapy. As we discussed what was found was you were dehydrated when you stood to go walk across the house and fall. You improved after you had 1 L of fluid. Make sure you are taking the proper amount of fluid, typically 60 ounces of noncaffeinated beverages. Follow-up with your doctor for any additional recommendations and physical therapy as we discussed. You also need to visit with your doctor about a full cortisol test. This will need to be done with your primary care doctor. Return to ED if you have additional falls, pain in your left hip increases, or temperature greater than 100.4 ?F Print Language: Danish Coding Level of Care Code ED Junior Art Director for Christine Montgomery
[2025-07-08 20:09] LABS: Lactic Sepsis W/Reflex 0.6 mmol/L (0.5-2.2)
[2025-07-08 20:12] LABS: Troponin(5th) Baseline 22 ng/L (0-15)
[2025-07-08 20:22] LABS: Alanine Aminotransferase 10 U/L (0-41); Albumin Level 3.8 g/dL (3.5-5.2); Alkaline Phosphatase 72 U/L (40-130); Anion Gap 12.9 (5-19); Aspartate Amino Transferase 16 U/L (0-40); Blood Urea Nitrogen 14 mg/dL (8-23); Calcium 8.6 mg/dL (8.5-10.5); Carbon Dioxide 26 mmol/L (22-29); Chloride 105 mmol/L (98-107); Creatinine Clr Calc Pharmacy 36.4119; Globulin 1.7 g/dL (1.3-4.6); Glucose 93 mg/dL (65-115); Osmolality Calculated 290 mOsm/kg (285-295); Potassium 3.9 mmol/L (3.5-5.1); Sodium 140 mmol/L (136-145); Thyroid Stimulating Hormone 2.00 uIU/mL (0.27-4.20); Total Protein 5.5 g/dL (6.6-8.7)
--- NOTE | 2025-07-08 20:38 | ECG_ITS ---
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 Measurements Intervals [place] Rate: 69 P: 146 NE: 216 QRS: -19 QRSD: 113 T: 53 QT: 442 QTc: 477 Interpretive Statements ELECTRONIC ATRIAL PACEMAKER ATRIAL PACED VENTRICULAR SENSED RHYTHM MODERATE INTRAVENTRICULAR CONDUCTION DELAY [110+ ms QRS DURATION] PROLONGED QT INTERVAL Compared to ECG 07/08/2025 17:55:47 Intraventricular conduction delay now present Prolonged QT interval now present Left-axis deviation no longer present Electronically Signed On 07-09-2025 21:48:12 CDT by Tino Jackson M.D. [id number]
[2025-07-08 21:11] LABS: Glucose Urine UA Negative (Normal); Nitrate Urine Negative (Negative); Specific Gravity, Urine 1.015 (1.005-1.030)
[2025-07-08 21:16] LABS: Add Urine Microscopic? YES
[2025-07-08 22:10] VITALS: BP 145/89; PULSE 70; O2SAT 93
[2025-07-08 22:16] LABS: Troponin 5 2HR 20.77 ng/L (0-15)
[2025-07-08 22:19] LABS: Troponin 5 2HR Delta -1.23 ABS# (0-10)
[2025-07-08 22:34] VITALS: BP 158/99; PULSE 71; O2SAT 99
--- OUTSIDE RECORDS SUMMARY | 2025-07-09 18:20 | XMS_ITS | Clinical Summary ---
Author Organization [facility] Address [address] [place] [id number] Care Team Providers Care Supervisor Floor Assembly Name Role Phone Kit Hairston MD Primary Care Provider [phone] Allergies Active Allergy Reactions Criticality Noted Date Comments Diphenhydramine Hcl 05/04/2014 Codeine 05/04/2014 Hydrocodone 05/04/2014 Iodinated Contrast Media 05/04/2014 Latex, Natural Rubber 05/04/2014 Morphine Rash Low 05/04/2014 Esomeprazole Magnesium 05/04/2014 Niacin Preparations 05/04/2014 Medications amitriptyline (ELAVIL) 25 MG tablet Take 25 mg by mouth nightly at bedtime. Active nitroglycerin (NITROSTAT) 0.[address] 0.4 mg under the tongue every 5 (five) minutes as needed for chest pain. Active ondansetron (ZOFRAN-ODT) 4 MG disint tab Take 4 mg by mouth every 8 (eight) hours as needed for nausea. Active calcium carbonate (TUMS) 200 mg calcium (500 mg) chew tab Take 2 tablets by mouth daily. Active famotidine (PEPCID) 20 MG tablet Take 20 mg by mouth 2 (two) times a day. Active traMADol (ULTRAM) 50 mg tablet Take 50 mg by mouth every 6 (six) hours as needed for pain. Active triamcinolone (KENALOG) 0.1 % cream Apply topically 2 (two) times a day. Active polyethylene glycol (MIRALAX) 17 gram/dose powder Take 17 g dissolved in water or juice 2 (two) times a day. 527 g 5 4 Active Active Problems Problem Noted Date Diagnosed Date PONV (postoperative nausea and vomiting) 014 Achalasia of esophagus 05/08/2014 Intractable nausea and vomiting 05/06/2014 Gastroparesis 05/04/2014 Osteoarthritis 05/04/2014 History of diabetes mellitus 05/04/2014 History of heart failure 05/04/2014 History of gout 05/04/2014 Family History Medical History Relation Comments Cancer Father Spine Diabetes Maternal Aunt Breast cancer at any age Maternal Grandmother Cancer Maternal Grandmother Diabetes Maternal Grandmother Heart disease Paternal Grandfather Stroke Paternal Grandfather Relation Status Comments Father Maternal Aunt Maternal Grandmother Paternal Grandfather Social History Tobacco Use Types Packs/Day Years Used Date Smoking Tobacco: Never Cigarettes Alcohol Use Standard Drinks/Week Comments No 0 (1 standard drink = 0.6 oz pur e alcohol) Sex and Gender Information Value Date Recorded Sex Assigned at Not on file Legal Sex Male 4:09 PM CDT Gender Identity Not on file Sexual Orientation Not on file 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 Not on file Not on file Not on file Not on file Not on file Not on file Not on file Last Filed Vital Signs Vital Sign Reading Time Taken Comments Blood Pressure 105/74 06/06/2014 11:19 AM CDT Pulse 96 06/06/2014 11:19 AM CDT Temperature 36.6 C (97.8 F) 06/06/2014 11:19 AM CDT Respiratory Rate 18 06/06/2014 11:19 AM CDT Oxygen Saturation 100% 06/06/2014 11:19 AM CDT Inhaled Oxygen Concentration - - Weight 81.2 kg (179 lb) 06/04/2014 4:00 PM CDT Height 186.7 cm (6' 1.5 ) 06/04/2014 4:00 PM CDT Body Mass Index 23.3 06/04/2014 4:00 PM CDT Plan of Treatment Health Maintenance Due Date Last Done Comments Depression Screening 1961 TDAP/DTaP/TD Vaccines (1 - Tdap) 1962 Pneumococcal Vaccine 50+ (1 of 1 - PCV) 1993 Zoster Vaccine (1 of 2) 1993 Respiratory Syncytial Virus (RSV) Immunization - pts and pts aged 60 yrs+ (1 - 1-dose 75+ series) 2018 COVID-19 Vaccine (1 - 2023-2 5 season) 2024 Annual Wellness Exam 11/27/2024 Influenza Series (#1) 2025 Hepatitis B Vaccine Aged Out No longe r eligible based on patient's age to complete this topic Meningococcal B Vaccine Aged Out No l onger eligible based on patient's age to complete this topic Insurance [facility] [employer] CHOICE Advance Directives * Full Code (Latest Code Status on File) Date Activated Date Inactivated Comments 06/04/2014 2:29 PM 06/06/2014 4:31 PM * Full Code Date Activated Date Inactivated Comments 06/04/2014 12:16 PM 06/04/2014 2:29 PM * Full Code Date Activated Date Inactivated Comments 05/20/2014 1:46 PM 05/22/2014 2:08 PM * Full Code Date Activated Date Inactivated Comments 05/04/2014 9:00 PM 05/20/2014 1:46 PM Care Teams Supervisor Floor Assembly Relationship Specialty Start Date End Date Kit Hairston MD [address] [place] [id number] PCP - General Internal Medicine 04/30/14
== END 2025-07-08 22:51 | disposition home or self-care (01) ==
PROVIDERS: Emergency Provider Physician Assistant; PCP Nurse Practitioner Family
DX: I95.1 Orthostatic hypotension (principal); Z79.82 Long term (current) use of aspirin; E78.5 Hyperlipidemia, unspecified; I13.0 Hypertensive heart and chronic kidney disease with heart failure and stage 1 through stage 4 chronic kidney disease, or unspecified chronic kidney disease; N18.9 Chronic kidney disease, unspecified; I50.9 Heart failure, unspecified; I25.10 Atherosclerotic heart disease of native coronary artery without angina pectoris; Z85.46 Personal history of malignant neoplasm of prostate; Z95.0 Presence of cardiac pacemaker
CPT/HCPCS: 36415; 70450; 70486; 71250; 72125; 72192; 73502; 80053; 81001; 82533; 83605; 84443; 84484; 85025; 93005; 96360; 96361; 99285; J7030

== ENCOUNTER → 2025-08-06 12:49 | Outpatient (BNVA) | payer MEDICARE, SELFPAY | PROVIDERS: PCP Nurse Practitioner Family; Visit Provider Internal Medicine Cardiovascular Disease | DX: I42.9 Cardiomyopathy, unspecified (principal); I95.1 Orthostatic hypotension; I47.20 Ventricular tachycardia, unspecified; E86.0 Dehydration; Z95.810 Presence of automatic (implantable) cardiac defibrillator | CPT/HCPCS: 99204; 99214 ==

== ENCOUNTER → 2025-09-09 12:00 | Outpatient (BNVA) | payer MEDICARE, SELFPAY | PROVIDERS: PCP Family Medicine; Visit Provider Internal Medicine Cardiovascular Disease | DX: I42.9 Cardiomyopathy, unspecified (principal); I95.1 Orthostatic hypotension; R21 Rash and other nonspecific skin eruption; Z95.810 Presence of automatic (implantable) cardiac defibrillator | CPT/HCPCS: 99214 ==

== ENCOUNTER → 2025-09-15 11:53 | Outpatient (BNVA) | payer MEDICARE, SELFPAY | PROVIDERS: PCP Family Medicine; Visit Provider Family Medicine | DX: R07.9 Chest pain, unspecified (principal); K44.9 Diaphragmatic hernia without obstruction or gangrene | CPT/HCPCS: 71045 ==

== ENCOUNTER → 2025-10-01 10:00 | Outpatient (BNVA) | payer MEDICARE, SELFPAY | PROVIDERS: PCP Family Medicine; Visit Provider Family Medicine | DX: R79.89 Other specified abnormal findings of blood chemistry (principal); I42.9 Cardiomyopathy, unspecified; I10 Essential (primary) hypertension; N18.32 Chronic kidney disease, stage 3b; N40.1 Benign prostatic hyperplasia with lower urinary tract symptoms; N13.8 Other obstructive and reflux uropathy; R09.89 Other specified symptoms and signs involving the circulatory and respiratory systems; Z12.5 Encounter for screening for malignant neoplasm of prostate; E55.9 Vitamin D deficiency, unspecified | CPT/HCPCS: 80053; 82306; 82607; 84439; 84443; 85025; 86140; G0103 ==

== ENCOUNTER 2025-11-19 07:41 | Outpatient (CLI) | payer MEDICARE, SELFPAY ==
--- NOTE | 2025-11-19 07:45 | USCV_ITS ---
Lazaro Moody Age: 80 Gender: M : 1945 Exam Date: 11/19/2025 08:16 Ordering Phys: Moraima Post NP Technologist: Exam Location: [facility] [place] Indication: cp sob BP: 150 / 90 HR: 60 Rhythm: Sinus Technical Quality: Adequate MEASUREMENTS (Male / Female) Normal Values 2D ECHO LV Diastolic Diameter PLAX 4.4 cm 4.2 - 5.9 / 3.9 - 5.3 cm IVS Diastolic Thickness 1.3 cm 0.6 - 1.0 / 0.6 - 0.9 cm IVS Systolic Thickness 2.1 cm LVPW Diastolic Thickness 1.3 cm 0.6 - 1.0 / 0.6 - 0.9 cm LVPW Systolic Thickness 1.5 cm LVOT Diameter 2.1 cm LV Ejection Fraction 2D Teich 68.2 % LV Ejection Fraction MOD 4C 64.3 % LV Ejection Fraction MOD 2C 71.8 % LV Ejection Fraction 2C AL 73.0 % LA Diameter 2.9 cm RA Systolic Volume 4C AL 68.1 ml RA Systolic Volume 4C MOD 67.2 ml LA Sys Volume AL 68.0 cm cubed LA Sys Volume Index AL 34.4 cm cubed/m squared Aorta at Sinotubular Diameter 3.7 cm IVC Diameter 1.9 cm M-MODE LA Ao Ratio MM 0.9 AV Cusp Separation MM 2.7 cm DOPPLER AV Peak Velocity 136.7 cm/s LVOT Peak Velocity 117.0 cm/s AV Area Cont Eq vti 3.8 cm squared AV Area Cont Eq pk 3.0 cm squared MV Area PHT 2.4 cm squared Mitral E to A Ratio 1.1 TV Peak Velocity 251.3 cm/s TR Peak Velocity 334.0 cm/s TR Peak Gradient 44.6 mmHg TV Peak E Velocity 139.0 cm/s PV Peak Velocity 85.0 cm/s FINDINGS Left Ventricle Normal left ventricular size, systolic function and wall thickness, with no regional wall motion abnormalities. Left ventricular ejection fraction is estimated at 60 %. Grade II/IV diastolic dysfunction, moderately elevated filling pressures. Right Ventricle Catheter/pacemaker wire visualized in the right ventricle. Right Atrium Normal right atrial size. Left Atrium Normal left atrial size. IA Septum Normal appearance of the interatrial septum. Mitral Valve Mildly thickened mitral valve. No mitral valve stenosis. Mild mitral valve regurgitation. Aortic Valve Moderate aortic valve calcification. No aortic valve stenosis. Trace aortic valve regurgitation. Tricuspid Valve Normal tricuspid valve structure. No tricuspid valve stenosis or regurgitation. Normal pulmonary pressure. Pulmonic Valve Normal pulmonic valve structure. No pulmonic valve stenosis or regurgitation. Pericardium No pericardial effusion. Aorta Normal diameter of the aortic root and ascending thoracic aorta. IVC Normal IVC diameter. CONCLUSIONS Normal left ventricular size, systolic function and wall thickness, with no regional wall motion abnormalities. Left ventricular ejection fraction is estimated at 60 %. Grade II/IV diastolic dysfunction, moderately elevated filling pressures. Catheter/pacemaker wire visualized in the right ventricle Mildly thickened mitral valve. No mitral valve stenosis. Mild mitral valve regurgitation. Moderate aortic valve calcification. No aortic valve stenosis. Trace aortic valve regurgitation. There is no pericardial effusion. Right atrial pressure is around 5 mm of mercury. Aaliyah Patel MD (Electronically Signed) Final Date: 29 November 2025 18:21 S
== END 2025-11-19 07:42 | disposition home or self-care (01) ==
LOC: RAD 07:44
PROVIDERS: PCP Family Medicine; Visit Provider Nurse Practitioner Family
DX: I42.9 Cardiomyopathy, unspecified (principal); R93.1 Abnormal findings on diagnostic imaging of heart and coronary circulation; Z96.89 Presence of other specified functional implants; I34.0 Nonrheumatic mitral (valve) insufficiency; I35.8 Other nonrheumatic aortic valve disorders
CPT/HCPCS: 93306